=== PATIENT | female | born 1930 | race Caucasian/White ===

== ENCOUNTER 2017-10-23 17:06 | Emergency (ER) | payer MEDICARE ==
--- OUTSIDE RECORDS SUMMARY | 2017-10-23 17:14 | XMS REPORT ---
:1930 External Reference #:[id number] Author Organization [facility] Address [address] [place] [address] Phone [phone] Care Team Providers Name Role Phone Yolis Kirby M.D. Care Team Information Final Inspector Motorcyles Unavailable Yolis Kirby M.D. Primary Care Physician Unavailable Payers Type Date Identification Numbers Payment Provider Subscriber Medicare Primary Policy Number: [id number] Medicare [place] PayID: [id number] [address] [place] [address] Medigap Part B Policy Number: [id number] [facility] Care Options [place] PayID: [id number] [address] [place] [address] Problems Date Description Provider Status Onset: 08/20/2011 Pure hypercholesterolemia Douglas Reynolds M.D. Active Onset: 08/20/2011 Multiple joint pain Douglas Reynolds M.D. Active Onset: 09/10/2011 Urinary incontinence Douglas Reynolds M.D. Active Onset: 11/04/2012 Arthralgia of the lower leg Douglas Reynolds M.D. Active Onset: 10/04/2015 Pain in left lower limb Douglas Reynolds M.D. Active Onset: 11/03/2015 Shoulder joint pain Douglas Reynolds M.D. Active Onset: 12/29/2015 Essential hypertension Yolis Kirby M.D. Active Onset: 10/02/2017 Anxiety state Yolis Kirby M.D. Active Onset: 03/02/2013 Senile dementia Douglas Reynolds M.D. Resolved Resolved: 12/29/2015 Onset: 05/24/2014 Tietze's disease Douglas Reynolds M.D. Resolved Resolved: 12/29/2015 Onset: 06/07/2014 Amnesia Douglas Reynolds M.D. Resolved Resolved: 12/29/2015 Onset: 06/07/2014 Functional encopresis Douglas Reynolds M.D. Resolved Resolved: 12/29/2015 Onset: 10/04/2015 Loss of appetite Douglas Reynolds M.D. Resolved Resolved: 12/29/2015 Onset: 11/29/2015 Weight decreased Douglas Reynolds M.D. Resolved Resolved: 12/29/2015 Family History Date Family Member(s) Problem(s) Comments Father Alzheimer's Disease Father Heart Disease Mother Asthma Social History Type Date Description Comments Living Situation [facility] alone Cigarette Use Nonsmoker ETOH Use Rare Smoking Nonsmoker Exercise Type/Frequency Current Exercises sporadically Allergies, Adverse Reactions, Alerts Date Description Reaction Status Severity Comments 11/05/1997 Sulfa Drugs active 05/04/2001 Tetracycline active Medications Medication Date Status Form Strength Qnty SIG Indications Ordering Provider Vesicare 06/26/ Active Tablets 10mg 30tab 1 by mouth Misty Genny 2017 s every day ALISSON Bingham Buspirone HCL 06/26/ Active Tablets 15mg 30tab take 1 F41.9 2017 s tablet at Braddock, bedtime M.D. Ibuprofen 05/29/ Active Tablets 400mg 90tab 1 tab by M54.5 Yolis 2017 s mouth three Braddock, times a day M.D. as needed, take with food Aspir-81 12/06/ Active Tablets DR 81mg 1 po qd [place] [address] [facility] Allergy Eye / Active Solution 0.025% 2 qtts in Unknown Drops 0000 each eye once a day as needed Vitamin C / Active Tablets 1000mg 1 by mouth Unknown 0000 every day Turmeric / Active Capsules 500-3mg 1 by mouth Unknown Curcumin 0000 daily Complex/Black Pepper Extract Clobetasol / Active Ointment 0.05% apply 1 Unknown Propionate 0000 application topically to affected area 2 times per day as needed Olopatadine 00/ Active Solution 0.1% 1 drop each Unknown HCL 0000 eye twice a day as needed Claritin-D 12 00/ Active Tablets ER 5-120mg 1 tablet in Unknown Hour 0000 12HR Am as needed Oxybutynin 05/29/ Hx Tablets 5mg 30tab 1 tab by Yolis Chloride 2018 - s mouth every Braddock, 06/26/ day M.D. 2018 Trigger 05/29/ Hx right 4th M65.341 Yolis Finger Brace 2018 - finger Kofi, 10/02/ overnight M.D. 2018 M15.0 Buspirone HCL 09/24/2016 - Hx Tablets 5mg 30tabs 1 tab by Henry9 Yolis 06/26/2017 mouth at Christiano Kirby bedtime as needed Escitalopram 07/23/2016 - Hx Tablets 5mg 30tabs take one F41.9 Yolis Oxalate 08/27/2016 tablet by Christiano Kirby mouth at bedtime Furosemide 12/29/2015 - Hx Tablets 40mg 60tabs 2 tab by M25.442 Yolis 09/23/2016 mouth every Christiano Kirby morning as needed Physical Therapy 11/29/2015 - Hx treatment Douglas Torrez 12/29/2015 and bogdan Reynolds M.D. of shoulders Hydrocodone 11/03/2015 - Hx Tablets 5-300 60tabs take 1 Douglas Torrez Bitartrate/Aceta 12/29/2015 mg tablet PO Rodolfo minophen Qhour 6 M.D. Hour Meloxicam 11/03/2015 - Hx Tablets 15mg 30tabs 1 by mouth Douglas Torrez 07/23/2016 every day Christiano Reynolds Meloxicam 10/23/2015 - Hx Tablets 7.5mg 30tabs 2 by mouth Douglas Torrez 11/03/2015 every day Christiano Reynolds Cane Quad 10/23/2015 - Hx use daily Douglas Torrez 12/29/2015 for ashwin Reynolds M.D. Medrol 10/04/2015 - Hx TBPK 4mg 1units use as Douglas Torrez 10/23/2015 directed Christiano Reynolds Physical Therapy 10/04/2015 - Hx treatment Douglas Torrez 12/29/2015 and bogdan Reynolds M.D. leg pain Clarithromycin 02/24/2015 - Hx Tablets 250mg 14tabs 1 by mouth R05 Merry 04/12/2015 twice a day PALMA Ni Compression 01/04/2015 - Hx 14mm use as R60.0 Yolis Stockings 02/24/2015 HG directed; Christiano Kirby wear during day; can take off at night Furosemide 12/29/2014 - Hx Tablets 40mg 60tabs 2 tab by R60.0 Douglas Torrez 12/29/2015 mouth every Breiman, morning as M.DJeff needed Physical Therapy 10/03/2014 - Hx evaluate and 719.41 Merari 10/13/2014 treat right ALISSON Shoemaker shoulder pain after a fall. Possible rotator cuff injury Meloxicam 10/03/2014 - Hx Tablets 7.5mg 60tabs 1 by mouth 719.41 Merari 10/13/2014 twice a day ALISSON Shoemaker Vesicare 02/02/2014 - Hx Tablets 5mg 30tabs take 2 788.63 Merry 10/03/2014 tablet by PALMA Ni mouth daily for overactive bladder Physical Therapy 02/02/2014 - Hx please 788.63 Merry 10/03/2014 eval/treat PALMA Ni urge incontinence , nocturia, failure to fully void restore [phone] Meclizine HCL 06/23/2013 - Hx Tablets 12.5m 15tabs 1 PO tid Douglas Torrez 04/12/2015 shanice Reynolds M.D. Vesicare 09/10/2011 - Hx Tablets 10mg 30tabs Take One Douglas Torrez 02/24/2015 Tablet By Rodolfo, Mouth Every M.D. Day Benzonatate 03/15/2011 - Hx Capsules 100mg 20caps 1-2 po tid 465.8 Pema 08/20/2011 prn for Peg, cough Afnp-C Robitussin A-C 03/15/2011 - Hx 4Oz 1-2 tsp po 465.8 Pema 08/20/2011 q4h prn Peg, cough Afnp-C Prednisone 11/27/2009 - Hx Tablets 10mg 10tabs use as Kary 03/15/2011 directed to PALMA Bhatia complete taper Prednisone 11/23/2009 - Hx Tablets 10mg 36tabs 4 tabs po qd 692.6 Kary 03/15/2011 x 3d; 3 tabs PALMA Bhatia po x 3d, 2tabs x 3d then 1 tab qd x 2 Zyrtec 11/23/2009 - Hx Tablets 10mg 30tabs 1 po qd 692.6 Kary 08/20/2011 PALMA Bhatia Multivitamins 12/06/2008 - Hx Tablets 30tabs 1 po qd Family 08/20/2011 [facility] Vitamin B 12/06/2008 - Hx Tablets 1 po qd Family Complex 12/29/2015 [facility] Vitamin C 12/06/2008 - Hx Tablets 1000m 0tabs 1 po qd Family 02/24/2015 g [facility] Vitamin E 12/06/2008 - Hx Capsules 400Un 1 po qd [facility] 12/29/2015 it [facility] Calcium Citrate 12/06/2008 - Hx Tablets 2 po qd Family + 08/20/2011 [facility] Magnesium 12/06/2008 - Hx Tablets 150mg 2 po qd Family 08/20/2011 [facility] Claritin-D 24 12/06/2008 - Hx Tablets ER 10-24 5tabs 1 po qd prn Family Hour 08/20/2011 24HR 0mg [facility] Echinacea 12/06/2008 - Hx Capsules 400mg prn [facility] 08/20/2011 [facility] Augmentin 07/05/2008 - Hx Tablets 500mg 16tabs 1 po bid Douglas Torrez 12/06/2008 with food x Rodolfo 8 days Christiano Loricet 12/23/2005 - Hx 5/500 30units Use 1 PO Douglas Torrez 07/05/2008 mg Q4HR Christiano Reynolds Antivert 12/20/2005 - Hx Tablets 12.5m 30tabs 1-2 po tid Douglas Torrez 07/05/2008 g nava Yeager M.D. 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 08/29/2003 days Christiano Saleh Thi Pearls 08/22/2003 - Hx 200mg 30units 1 PO tid Guillermo J. 09/05/2003 Christiano Saleh Robitussin ac 08/22/2003 - Hx 4Oz 1-2 TSP PO Guillermo J. 09/05/2003 Q4H prn Christiano Saleh Cough Hearing Test 02/15/2002 - Hx PT needs to Douglas Torrez 06/17/2003 have a jorge Reynolds M.D. evaluation d/t her hearing AIDS Ultravate Oint 02/02/2002 - Hx 0.05% 0units Douglas Torrez 06/17/2003 Christiano Reynolds Note 05/13/2001 - Hx PT Still Kary 02/02/2002 Cleared For PALMA Bhatia Surgery Amoxicillin 03/11/2000 - Hx 250mg 30units 1 PO tid Omar Bright 03/21/2000 Christiano Reece Amoxicillin 03/26/1999 - Hx 250mg 30units 1 PO tid Omar Bright 06/20/1999 Christiano Reece Amoxicillin 02/26/1999 - Hx 250mg 30units 1 PO tid Omar Bright 03/08/1999 Christiano Reece Claritin 11/05/1997 - Hx 10mg 30units 1 qd Harvinder F. 03/11/2000 Christiano Tabor Bactrim DS 10/26/1997 - Hx 20units 1 PO bid Enrico T. 11/05/1997 Christiano Arroyo Suprax 10/20/1997 - Hx 400mg 10units 1 PO qd Omar Bright 10/30/1997 Christiano Reece Amoxicillin 10/10/1997 - Hx 250mg 30units 1 PO tid Omar Bright 10/20/1997 Christiano Reece Entex Pse 10/10/1997 - Hx 30units 1 bid Omar Bright 10/25/1997 Christiano Reece Naproxen 01/03/1997 - Hx 375mg 50units 1 PO tid prn Omar Bright 03/11/2000 Tab Christiano Reece Sporanox 12/03/1996 - Hx 100mg 56units Take 2 Omar M. 06/20/1999 Tab Capsules bid Shanell, X 1 WK - Off M.DJeff X 3 Wksthen 2 Capsules bid X 1 WK Inholtra Premium - Hx 1 po qd Unknown Lubri-Joint 12/29/2015 Calcium Citrate - Hx 250mg 1 po qd Unknown 12/29/2015 Vitamin D 3 - Hx 150Iu 1 po qd Unknown 12/29/2015 Loratadine - Hx Tablets 10mg 30tabs 1 po qd prn Unknown 11/04/2012 Claritin 12 Hour - Hx Tablets ER 5mg 30tabs prn Unknown 02/24/2015 12HR Aspirin - Hx Tablets 325mg prn Unknown 08/26/2016 Halobetasol - Hx Ointment 0.05% 15units apply two Unknown Propionate 02/02/2014 times a day as needed Phyllis-Northwood - Hx Tablets prn Unknown 02/02/2014 Efferv Zinc - Hx Tablets 50mg 1 po qd Unknown 12/29/2015 Vesicare - Hx Tablets 10mg 90tabs 1 po qd Unknown 02/02/2014 Mupirocin - Hx Ointment 2% 30gm Unknown 02/02/2014 Hydroxyzine HCL - Hx Tablets 10mg 60tabs 2 po qhs Unknown 09/23/2016 Prednisone - Hx Tablets 10mg 1 po qod Unknown 04/12/2015 Triamcinolone - Hx Ointment 0.1% apply to the Unknown Acetonide 07/23/2016 affected area 2 to 3 times a day Vitamin C - Hx Tablets 500mg 1 po qd Unknown 12/29/2015 Loratadine - Hx Tablets 5mg 1 po qd prn Unknown 07/23/2016 Tramadol - Hx Tablets 37.5- 50tabs 1or 2 Merari Hydrochloride/Ac 12/29/2015 325mg tablest by ALISSON Shoemaker etaminophen mouth every 6 hours as needed for pain Clobetasol - Hx Cream prn Unknown Propionate 09/23/2016 Emollient Otezla - Hx Tablets 30mg 1 po bid Unknown 05/29/2017 Claritin-D 12 - Hx Tablets ER 5-120 one tablet Unknown Hour 05/29/2017 12HR mg by mouth every 12 hours as needed Premium - Hx daily Unknown Lubri-Joint 10/02/2017 Medications Administered in Office Medication Date Status Form Strength Qnty SIG Indications Ordering Provider H1N1 MDCR Administered Injection Douglas Lore vaccine any 010 Amyimandenver M.D. Immunizations CPT Code Status Date Vaccine Lot # [id number] Given 04/12/2015 Pneumococcal Conjugate Vacc-13 [id number] Given 02/11/2014 Split Influenza Medicare: Fluzone [id number] Given 04/18/2009 H1N1 Virus Vaccine [id number] Given 12/06/2008 Zostivax [id number] Given 07/05/2008 Tetanus And Diptheria Adult Preservative Free [id number] >[id number] 97878 Given 02/12/2007 DO Not Use Split Influenza Virus Vaccine 54540 Given 02/02/2002 Pneumococcal Immunization 87297 Given 02/02/2002 DO Not Use Split Influenza Virus Vaccine Vital Signs Date Vital Result Comment 10/02/2017 BP Systolic 118 mmHg BP Diastolic 78 mmHg Heart Rate 88 /min Body Temperature 97.5 F Height 62 inches 5'2" Weight 135.00 lb BMI (Body Mass Index) 24.7 kg/m2 06/26/2017 BP Systolic 120 mmHg BP Diastolic 70 mmHg Heart Rate 88 /min Body Temperature 98.4 F Respiratory Rate 16 /min Height 62 inches 5'2" Weight 136.00 lb BMI (Body Mass Index) 24.9 kg/m2 05/29/2017 BP Systolic 130 mmHg BP Diastolic 84 mmHg Heart Rate 88 /min Body Temperature 99.0 F Respiratory Rate 16 /min Height 62 inches 5'2" Weight 134.12 lb BMI (Body Mass Index) 24.5 kg/m2 11/21/2016 BP Systolic 182 mmHg BP Diastolic 90 mmHg BP Systolic Recheck 120 mmHg BP Diastolic Recheck 78 mmHg Heart Rate 92 /min Body Temperature 98.4 F Respiratory Rate 16 /min Height 61 inches 5'1" Weight 126.38 lb BMI (Body Mass Index) 23.9 kg/m2 09/24/2016 BP Systolic 120 mmHg BP Diastolic 80 mmHg Heart Rate 104 /min Body Temperature 97.2 F Height 61 inches 5'1" Weight 123.00 lb BMI (Body Mass Index) 23.2 kg/m2 08/27/2016 BP Systolic 128 mmHg BP Diastolic 82 mmHg Heart Rate 104 /min Body Temperature 98.8 F Height 61 inches 5'1" Weight 122.12 lb BMI (Body Mass Index) 23.1 kg/m2 07/23/2016 BP Systolic 140 mmHg BP Diastolic 80 mmHg Heart Rate 100 /min Body Temperature 98.2 F Respiratory Rate 16 /min Height 61 inches 5'1" Weight 125.00 lb BMI (Body Mass Index) 23.6 kg/m2 12/29/2015 BP Systolic 150 mmHg BP Diastolic 80 mmHg Heart Rate 80 /min Body Temperature 97.7 F Respiratory Rate 16 /min Height 61 inches 5'1" Weight 119.00 lb BMI (Body Mass Index) 22.5 kg/m2 12/22/2015 BP Systolic 134 mmHg BP Diastolic 72 mmHg Heart Rate 78 /min Body Temperature 98.0 F Respiratory Rate 20 /min Weight 121.00 lb 11/29/2015 BP Systolic 140 mmHg BP Diastolic 84 mmHg Heart Rate 78 /min Body Temperature 98.0 F Respiratory Rate 20 /min Weight 114.00 lb 11/03/2015 BP Systolic 130 mmHg BP Diastolic 70 mmHg Heart Rate 72 /min Body Temperature 98.0 F Respiratory Rate 20 /min 10/23/2015 BP Systolic 140 mmHg BP Diastolic 84 mmHg Heart Rate 72 /min Body Temperature 98.6 F Respiratory Rate 20 /min Height 62 inches 5'2" Weight 124.00 lb BMI (Body Mass Index) 22.7 kg/m2 10/04/2015 BP Systolic 120 mmHg BP Diastolic 74 mmHg Heart Rate 76 /min Body Temperature 98.0 F Respiratory Rate 20 /min Height 62 inches 5'2" Weight 126.00 lb BMI (Body Mass Index) 23.0 kg/m2 05/01/2015 BP Systolic 134 mmHg BP Diastolic 72 mmHg Heart Rate 88 /min Body Temperature 98.6 F Respiratory Rate 20 /min Height 62 inches 5'2" Weight 136.00 lb BMI (Body Mass Index) 24.9 kg/m2 04/12/2015 BP Systolic 136 mmHg BP Diastolic 70 mmHg Heart Rate 96 /min Body Temperature 98.8 F Respiratory Rate 16 /min Height 62 inches 5'2" Weight 139.50 lb BMI (Body Mass Index) 25.5 kg/m2 02/24/2015 BP Systolic 150 mmHg BP Diastolic 80 mmHg Heart Rate 88 /min Body Temperature 98.1 F Respiratory Rate 20 /min Height 62 inches 5'2" Weight 144.00 lb BMI (Body Mass Index) 26.3 kg/m2 01/11/2015 BP Systolic 120 mmHg BP Diastolic 60 mmHg Heart Rate 96 /min Body Temperature 98.5 F Respiratory Rate 18 /min Height 62 inches 5'2" Weight 148.50 lb BMI (Body Mass Index) 27.2 kg/m2 01/04/2015 BP Systolic 118 mmHg BP Diastolic 62 mmHg Heart Rate 96 /min Body Temperature 98.8 F Respiratory Rate 16 /min Height 62 inches 5'2" 12/29/2014 Body Temperature 99.7 F Height 62 inches 5'2" Weight 162.25 lb BMI (Body Mass Index) 29.7 kg/m2 10/14/2014 BP Systolic 120 mmHg BP Diastolic 70 mmHg Heart Rate 54 /min Body Temperature 98.7 F Respiratory Rate 16 /min Height 62 inches 5'2" Weight 158.25 lb BMI (Body Mass Index) 28.9 kg/m2 10/03/2014 BP Systolic 152 mmHg BP Diastolic 92 mmHg Heart Rate 80 /min Body Temperature 98.8 F Respiratory Rate 17 /min Height 62 inches 5'2" 09/30/2014 BP Systolic 130 mmHg BP Diastolic 78 mmHg Heart Rate 78 /min Body Temperature 97.9 F Respiratory Rate 20 /min Height 62 inches 5'2" Weight 158.00 lb BMI (Body Mass Index) 28.9 kg/m2 06/07/2014 BP Systolic 126 mmHg BP Diastolic 70 mmHg Heart Rate 72 /min Body Temperature 97.8 F Respiratory Rate 20 /min O2 % BldC Oximetry 94 % Height 62 inches 5'2" Weight 162.00 lb BMI (Body Mass Index) 29.6 kg/m2 05/24/2014 BP Systolic 112 mmHg BP Diastolic 80 mmHg Heart Rate 82 /min Body Temperature 98.0 F Respiratory Rate 20 /min Height 65.25 inches 5'5.25" Weight 162.00 lb BMI (Body Mass Index) 26.7 kg/m2 02/08/2014 BP Systolic 130 mmHg BP Diastolic 80 mmHg Heart Rate 82 /min Body Temperature 99.1 F Respiratory Rate 20 /min Height 65.25 inches 5'5.25" Weight 151.00 lb BMI (Body Mass Index) 24.9 kg/m2 02/02/2014 BP Systolic 148 mmHg BP Diastolic 80 mmHg Heart Rate 72 /min Body Temperature 97.8 F Respiratory Rate 16 /min Height 65.25 inches 5'5.25" Weight 151.12 lb BMI (Body Mass Index) 25.0 kg/m2 03/02/2013 BP Systolic 130 mmHg BP Diastolic 80 mmHg Heart Rate 80 /min Body Temperature 98.5 F Respiratory Rate 16 /min Height 65.25 inches 5'5.25" Weight 153.00 lb BMI (Body Mass Index) 25.3 kg/m2 11/04/2012 BP Systolic 140 mmHg BP Diastolic 90 mmHg Heart Rate 76 /min Body Temperature 98.7 F Respiratory Rate 18 /min Height 65 inches 5'5" Weight 154.00 lb BMI (Body Mass Index) 25.6 kg/m2 09/10/2011 BP Systolic 156 mmHg BP Diastolic 90 mmHg Heart Rate 80 /min Body Temperature 98.3 F Height 65 inches 5'5" Weight 158.00 lb BMI (Body Mass Index) 26.3 kg/m2 08/20/2011 BP Systolic 160 mmHg BP Diastolic 80 mmHg Heart Rate 80 /min Body Temperature 98.0 F Height 65 inches 5'5" Weight 156.00 lb BMI (Body Mass Index) 26.0 kg/m2 03/15/2011 BP Systolic 150 mmHg BP Diastolic 82 mmHg Heart Rate 78 /min Body Temperature 98.2 F Height 65 inches 5'5" Weight 159.00 lb BMI (Body Mass Index) 26.5 kg/m2 11/23/2009 Heart Rate 76 /min Body Temperature 98.2 F Respiratory Rate 16 /min Height 65 inches 5'5" Weight 161.00 lb BMI (Body Mass Index) 26.8 kg/m2 05/23/2009 BP Systolic 130 mmHg BP Diastolic 70 mmHg Heart Rate 84 /min Height 65 inches 5'5" Weight 164.00 lb BMI (Body Mass Index) 27.3 kg/m2 04/18/2009 BP Systolic 136 mmHg BP Diastolic 76 mmHg Heart Rate 84 /min Height 65 inches 5'5" Weight 160.00 lb BMI (Body Mass Index) 26.6 kg/m2 12/06/2008 BP Systolic 136 mmHg BP Diastolic 80 mmHg Heart Rate 80 /min Height 65 inches 5'5" Weight 156.00 lb BMI (Body Mass Index) 26.0 kg/m2 07/05/2008 BP Systolic 122 mmHg BP Diastolic 80 mmHg Heart Rate 80 /min Body Temperature 98.9 F Weight 155.00 lb 02/04/2006 BP Systolic 130 mmHg BP Diastolic 70 mmHg Heart Rate 90 /min Height 64.75 inches 5'4.75" Weight 156.00 lb BMI (Body Mass Index) 26.2 kg/m2 12/23/2005 BP Systolic 160 mmHg BP Diastolic 92 mmHg Heart Rate 68 /min Body Temperature 98.9 F Height 64.75 inches 5'4.75" Weight 160.00 lb BMI (Body Mass Index) 26.8 kg/m2 12/20/2005 BP Systolic 174 mmHg BP Diastolic 100 mmHg Heart Rate 68 /min Body Temperature 97.5 F Height 64.75 inches 5'4.75" Weight 159.00 lb BMI (Body Mass Index) 26.7 kg/m2 09/25/2004 BP Systolic 148 mmHg BP Diastolic 90 mmHg Heart Rate 80 /min Height 64.75 inches 5'4.75" Weight 157.00 lb BMI (Body Mass Index) 26.3 kg/m2 08/22/2003 BP Systolic 115 mmHg BP Diastolic 75 mmHg Body Temperature 103.0 F Height 65.5 inches 5'5.50" 06/17/2003 BP Systolic 162 mmHg BP Diastolic 90 mmHg Heart Rate 80 /min Body Temperature 97.4 F Height 65.5 inches 5'5.50" Weight 150.00 lb BMI (Body Mass Index) 24.6 kg/m2 02/02/2002 BP Systolic 136 mmHg BP Diastolic 80 mmHg Heart Rate 68 /min Body Temperature 97.9 F Height 65.5 inches 5'5.50" Weight 142.00 lb BMI (Body Mass Index) 23.6 kg/m2 10/15/2001 BP Systolic 144 mmHg BP Diastolic 80 mmHg Height 65.5 inches 5'5.50" Weight 146.00 lb BMI (Body Mass Index) 24.3 kg/m2 10/09/2001 BP Systolic 156 mmHg BP Diastolic 94 mmHg Height 65.5 inches 5'5.50" Weight 148.00 lb BMI (Body Mass Index) 24.6 kg/m2 05/04/2001 BP Systolic 134 mmHg BP Diastolic 60 mmHg Heart Rate 80 /min Body Temperature 97.9 F Height 65.5 inches 5'5.50" Weight 158.00 lb BMI (Body Mass Index) 26.3 kg/m2 01/09/2001 BP Systolic 150 mmHg BP Diastolic 90 mmHg Heart Rate 72 /min Weight 165.00 lb 03/11/2000 BP Systolic 152 mmHg BP Diastolic 98 mmHg Body Temperature 97.8 F Weight 166.00 lb 02/26/1999 Body Temperature 97.8 F Weight 162.00 lb 11/05/1997 BP Systolic 126 mmHg BP Diastolic 80 mmHg Weight 157.00 lb 10/10/1997 BP Systolic 128 mmHg Ra SM Cuff BP Diastolic 70 mmHg Ra SM Cuff Weight 164.00 lb 01/03/1997 Body Temperature 97.5 F 12/03/1996 BP Systolic 152 mmHg BP Diastolic 82 mmHg Body Temperature 96.9 F Weight 166.00 lb Results Test Date Test Result H/L Range Note Comprehensive Metabolic Prof 06/26/2017 Sodium 143 mEq/L 134-149 Potassium 4.0 mEq/L 3.6-5.5 Chloride 106 mEq/L 94-112 Carbon Dioxide 28 mEq/L 21-32 Glucose 98 mg/dL 70-105 BUN 24 mg/dL 6-26 Creatinine 0.7 mg/dL 0.6-1.4 BUN/Creat Ratio 34.3 CALC 8.0-36.0 Calcium 9.4 mg/dL 8.6-10.2 Total Protein 7.1 g/dL 6.4-8.3 Albumin 4.4 g/dL 3.8-5.5 Globulin 2.7 g/dL 2.0-4.8 A/G Ratio 1.6 CALC 0.6-2.3 Alk. Phosphatase 53 U/L 30-110 Alt (SGPT) 15 U/L 7-35 Ast (Sgot) 18 U/L 5-34 Total Bilirubin 1.0 mg/dL 0.2-1.3 GFR Non- >60 ml/min/1.73m^ >=60 GFR >60 ml/min/1.73m^ >=60 Lipid Profile 06/26/2017 Cholesterol 204 mg/dL High 120-200 Triglycerides 73 mg/dL 30-200 HDL Cholesterol 85 mg/dL 30-85 LDL (Calculated) 104 CALC 0-129 VLDL Cholesterol 15 mg/dL 0-50 HDL Risk Factor 2.4 CALC 0.0-4.4 Laboratory test finding 06/26/2017 Free T4 1.09 ng/dL 0.75-1.54 TSH 2.10 mIU/L 0.50-6.00 CBC Electronic Fma 06/26/2017 WBC 5.0 x10^3/UL 4.0-10.0 RBC 4.22 x10^6/UL 3.93-6.00 HGB 12.7 g/dL 12.0-17.0 HCT 37 % 35-50 MCV 88.4 fL 80.0-95.0 MCH 30.1 pg 25.6-32.2 MCHC 34.0 g/dL 32.2-36.0 RDW-CV 13.9 % 11.6-14.4 PLT 183 x10^3/UL 163-400 MPV 11.6 fL 9.4-12.4 Amy# 3.30 x10^3/UL 1.56-6.13 Lymph# 1.01 x10^3/UL Low 1.18-3.74 Hutchinson# 0.52 x10^3/UL 0.24-0.82 Eos # 0.1 x10^3/UL 0.0-0.5 Baso # 0.04 x10^3/UL 0.01-0.08 Amy% 66.5 % 34.0-70.0 Lymph % 20.4 % 20.0-52.0 Hutchinson% 10.5 % 5.0-12.0 Eos% 1.6 % 0.7-7.0 Baso% 0.8 % 0.1-1.2 Complete Blood Count 09/17/2016 WBC 5.2 x10^3/UL 3.6-9.6 RBC 4.28 x10^6/UL 3.90-5.70 HGB 12.7 g/dL 12.1-17.2 HCT 38 % 36-50 MCV 88.0 fL 82.2-97.4 MCH 29.6 pg 27.6-33.3 MCHC 33.7 g/dL 33.0-35.5 RDW 13.9 % High 11.6-13.7 PLT 174 x10^3/UL 150-400 MPV 8.7 fL 7.4-10.4 Gran # 3.1 x10^3/UL 1.5-7.2 Lymph# 1.7 x10^3/UL 0.7-4.9 Hutchinson# 0.4 x10^3/UL 0.1-0.9 Gran % 57.8 % 42.2-75.2 Lymph % 34.5 % 20.5-51.1 Hutchinson% 7.7 % 1.7-9.3 Comprehensive Metabolic Prof 09/17/2016 Sodium 139 mEq/L 134-149 Potassium 4.0 mEq/L 3.6-5.5 Chloride 99 mEq/L 94-112 Carbon Dioxide 24 mEq/L 21-32 Glucose 100 mg/dL 70-105 BUN 32 mg/dL High 6-26 1 Creatinine 0.7 mg/dL 0.6-1.4 BUN/Creat Ratio 45.7 CALC High 8.0-36.0 Calcium 9.3 mg/dL 8.6-10.2 Total Protein 6.7 g/dL 6.4-8.3 Albumin 4.0 g/dL 3.8-5.5 Globulin 2.7 g/dL 2.0-4.8 A/G Ratio 1.5 CALC 0.6-2.3 Alk. Phosphatase 59 U/L 30-110 Alt (SGPT) 15 U/L 7-35 Ast (Sgot) 18 U/L 5-34 Total Bilirubin 0.5 mg/dL 0.2-1.3 GFR Non- >60 ml/min/1.73m^ >=60 GFR >60 ml/min/1.73m^ >=60 Lipid Profile 09/17/2016 Cholesterol 173 mg/dL 120-200 Triglycerides 91 mg/dL 30-200 HDL Cholesterol 80 mg/dL 30-85 LDL (Calculated) 75 CALC 0-129 VLDL Cholesterol 18 mg/dL 0-50 HDL Risk Factor 2.2 CALC 0.0-4.4 Laboratory test finding 09/17/2016 TSH 3.33 mIU/L 0.50-6.00 Laboratory test finding 11/29/2015 BUN 28 mg/dL High 6-26 2 Creatinine 0.7 mg/dL 0.6-1.4 Protein Electrophoresis 11/03/2015 Protein, Total, Serum 6.6 g/dL 6.0- 8.5 3 W/Interp Albumin 3.6 g/dL 2.9-4.4 3 Cjixr-7-Uahhkmnq 0.3 g/dL 0.0-0.4 3 Vxrxn-9-Kksczxhw 0.7 g/dL 0.4-1.0 3 Beta Globulin 1.0 g/dL 0.7-1.3 3 Gamma Globulin 0.9 g/dL 0.4-1.8 3 M-Campbell Not Observed g/dL Not Observed 3 Globulin, Total 3.0 g/dL 2.2-3.9 3 A/G Ratio 1.2 0.7-1.7 3 Please note: See Comment: 3, 4 P E Interpretation, S See Comment: 3, 5 Laboratory test finding 11/03/2015 PDF [id number] SEE IMAGE 3 Comprehensive Metabolic Prof 10/23/2015 Sodium 142 mEq/L 134-149 Potassium 4.8 mEq/L 3.6-5.5 Chloride 104 mEq/L 94-112 Carbon Dioxide 27 mEq/L 21-32 Glucose 95 mg/dL 70-105 BUN 25 mg/dL 6-26 Creatinine 0.7 mg/dL 0.6-1.4 BUN/Creat Ratio 35.7 CALC 8.0-36.0 Calcium 9.7 mg/dL 8.6-10.2 Total Protein 7.0 g/dL 6.4-8.3 Albumin 4.0 g/dL 3.8-5.5 Globulin 3.0 g/dL 2.0-4.8 A/G Ratio 1.3 CALC 0.6-2.3 Alk. Phosphatase 76 U/L 30-110 Alt (SGPT) 18 U/L 7-35 Ast (Sgot) 23 U/L 5-34 Total Bilirubin 0.8 mg/dL 0.2-1.3 GFR Non- >60 ml/min/1.73m^ >=60 GFR >60 ml/min/1.73m^ >=60 Laboratory test finding 10/23/2015 TSH 0.71 mIU/L 0.50-6.00 Free T4 1.22 ng/dL 0.75-1.54 Laboratory test finding 10/23/2015 C-Reactive Protein, Quant 2.9 mg/L 0.0 -4.9 3 CBC Electronic ([facility]ma) 10/23/2015 WBC 6.1 3.6-9.6 RBC 4.56 3.90-5.70 Hemoglobin ([facility]ma/CMC/CTX) 13.7 g/dL 12.1 - 17.2 Hematocrit (Fma/CMC/CTX) 42.2 % 36.1 - 50.3 Platelets 211 10^3/ul 150-400 Lymph% 18.9 % 17.0-48.0 Mixed% 5.5 Neutrophils % 75.6 Mean Corpuscular Vol 92 82.2-97.4 Mean Corpuscular Hemoglobin 30.0 27.6-33.3 Mean Corpuscular Hemo Concen 32.5 32.0-36.0 RDW 14.2 High 11.6-13.7 Mean Platelet Volume 7.8 5.5-11.0 Laboratory test finding 10/23/2015 Sedimentation Rate 18mm Lipid Profile 09/26/2015 Cholesterol 175 mg/dL 120-200 Triglycerides 97 mg/dL 30-200 HDL Cholesterol 72 mg/dL 30-85 LDL (Calculated) 84 CALC 0-129 VLDL Cholesterol 19 mg/dL 0-50 HDL Risk Factor 2.4 CALC 0.0-4.4 Complete Blood Count 09/26/2015 WBC 6.0 x10^3/UL 3.6-9.6 RBC 4.34 x10^6/UL 3.90-5.70 HGB 13.2 g/dL 12.1-17.2 HCT 40 % 36-50 MCV 92.0 fL 82.2-97.4 MCH 30.4 pg 27.6-33.3 MCHC 33.0 g/dL 33.0-35.5 RDW 13.6 % 11.6-13.7 PLT 211 x10^3/UL 150-400 MPV 8.0 fL 7.4-10.4 Gran # 4.7 x10^3/UL 1.5-7.2 Lymph# 1.0 x10^3/UL 0.7-4.9 [place]# 0.3 x10^3/UL 0.1-0.9 Gran % 76.4 % High 42.2-75.2 Lymph % 18.3 % Low 20.5-51.1 [place]% 5.3 % 1.7-9.3 Laboratory test finding 09/26/2015 Anti-dsDNA Antibodies 1 IU/mL 0-9 3, 6 Laboratory test finding 09/26/2015 Alt (SGPT) 19 U/L 7-35 Laboratory test finding 05/01/2015 Vitamin D25 46 30-100 Complete Blood Count 05/01/2015 WBC 4.9 x10^3/UL 3.6-9.6 RBC 4.27 x10^6/UL 3.90-5.70 HGB 13.1 g/dL 12.1-17.2 HCT 39 % 36-50 MCV 91.0 fL 82.2-97.4 MCH 30.6 pg 27.6-33.3 MCHC 33.5 g/dL 33.0-35.5 RDW 13.5 % 11.6-13.7 PLT 178 x10^3/UL 150-400 MPV 8.7 fL 7.4-10.4 Gran # 3.4 x10^3/UL 1.5-7.2 Lymph# 1.3 x10^3/UL 0.7-4.9 [place]inson# 0.2 x10^3/UL 0.1-0.9 Gran % 67.9 % 42.2-75.2 Lymph % 26.5 % 20.5-51.1 [place]% 5.6 % 1.7-9.3 Comprehensive Metabolic Prof 05/01/2015 Sodium 138 mEq/L 134-149 Potassium 4.5 mEq/L 3.6-5.5 Chloride 101 mEq/L 94-112 Carbon Dioxide 25 mEq/L 21-32 Glucose 76 mg/dL 70-105 BUN 22 mg/dL 6-26 Creatinine 0.7 mg/dL 0.6-1.4 BUN/Creat Ratio 31.4 CALC 8.0-36.0 Calcium 9.8 mg/dL 8.6-10.2 Total Protein 6.6 g/dL 6.4-8.3 Albumin 4.2 g/dL 3.8-5.5 Globulin 2.4 g/dL 2.0-4.8 A/G Ratio 1.8 CALC 0.6-2.3 Alk. Phosphatase 41 U/L 30-110 Alt (SGPT) 24 U/L 7-35 Ast (Sgot) 25 U/L 5-34 Total Bilirubin 0.5 mg/dL 0.2-1.3 GFR Non- >60 ml/min/1.73m^ >=60 GFR >60 ml/min/1.73m^ >=60 Lipid Profile 12/30/2014 Cholesterol 153 mg/dL 120-200 Triglycerides 84 mg/dL 30-200 HDL Cholesterol 62 mg/dL 30-85 LDL (Calculated) 74 CALC 0-129 VLDL Cholesterol 17 mg/dL 0-50 HDL Risk Factor 2.5 CALC 0.0-4.4 Laboratory test finding 12/30/2014 TSH 1.76 mIU/L 0.50-6.00 Free T4 1.07 ng/dL 0.75-1.54 Complete Blood Count 12/30/2014 WBC 5.3 x10^3/UL 3.6-9.6 RBC 4.20 x10^6/UL 3.90-5.70 HGB 12.8 g/dL 12.1-17.2 HCT 39 % 36-50 MCV 92.0 fL 82.2-97.4 MCH 30.6 pg 27.6-33.3 MCHC 33.4 g/dL 33.0-35.5 RDW 13.7 % 11.6-13.7 PLT 185 x10^3/UL 150-400 MPV 8.5 fL 7.4-10.4 Gran # 3.8 x10^3/UL 1.5-7.2 Lymph# 1.2 x10^3/UL 0.7-4.9 Hutchinson# 0.3 x10^3/UL 0.1-0.9 Gran % 69.8 % 42.2-75.2 Lymph % 23.1 % 20.5-51.1 Hutchinson% 7.1 % 1.7-9.3 Ua - Micro ([facility]ma) 12/30/2014 Appearance clear Color yellow Glucose, Urine (Fma/CMC/CTX) - Bilirubin - Ketones trace SP Grav 1.015 Blood - PH 6.0 Protein - Urobil 0.2 Nitrite - Leukocytes (Fma/CMC/Centrex) trace Hyaline - /Lpf Granular - /Lpf WBC ([facility]ma,Centrex) 3-4 RBC - Mucus (Fma/CBC/Centrex) - /Lpf Epith occ /Lpf Bacteria trace /Hpf Amorphous (Fma/CMC/Centrex) - /Lpf Crystals, Fluid (Fma/CMC/CTX) - Z#Comments - Laboratory test finding 12/30/2014 Brain Natural Peptide 84.6 pg/mL <100 Comprehensive Metabolic Prof 12/30/2014 Sodium 136 mEq/L 134-149 Potassium 3.8 mEq/L 3.6-5.5 Chloride 100 mEq/L 94-112 Carbon Dioxide 28 mEq/L 21-32 Glucose 96 mg/dL 70-105 BUN 24 mg/dL 6-26 Creatinine 0.7 mg/dL 0.6-1.4 BUN/Creat Ratio 34.3 CALC 8.0-36.0 Calcium 9.4 mg/dL 8.6-10.2 Total Protein 5.8 g/dL Low 6.4-8.3 7 Albumin 3.8 g/dL 3.8-5.5 Globulin 2.0 g/dL 2.0-4.8 A/G Ratio 1.9 CALC 0.6-2.3 Alk. Phosphatase 33 U/L 30-110 Alt (SGPT) 25 U/L 7-35 Ast (Sgot) 27 U/L 5-34 Total Bilirubin 1.2 mg/dL 0.2-1.3 GFR Non- >60 ml/min/1.73m^ >=60 GFR >60 ml/min/1.73m^ >=60 Comprehensive Metabolic Prof 02/02/2014 Sodium 137 mEq/L 134-149 Potassium 4.4 mEq/L 3.6-5.5 Chloride 100 mEq/L 94-112 Carbon Dioxide 28 mEq/L 21-32 Glucose 84 mg/dL 70-105 BUN 24 mg/dL 6-26 Creatinine 0.7 mg/dL 0.6-1.4 BUN/Creat Ratio 34.3 CALC 8.0-36.0 Calcium 9.7 mg/dL 8.6-10.2 Total Protein 7.1 g/dL 6.4-8.3 Albumin 4.2 g/dL 3.8-5.5 Globulin 2.9 g/dL 2.0-4.8 A/G Ratio 1.4 CALC 0.6-2.3 Alk. Phosphatase 39 U/L 30-110 Alt (SGPT) 26 U/L 7-35 Ast (Sgot) 20 U/L 5-34 Total Bilirubin 0.8 mg/dL 0.2-1.3 Laboratory test finding 02/02/2014 TSH 2.76 mIU/L 0.50-6.00 Lipid Profile 02/02/2014 Cholesterol 247 mg/dL High 120-200 Triglycerides 107 mg/dL 30-200 HDL Cholesterol 109 mg/dL High 30-85 8 LDL (Calculated) 117 CALC 0-129 VLDL Cholesterol 21 mg/dL 0-50 HDL Risk Factor 2.3 CALC 0.0-4.4 Ua - Micro ([facility]) 02/02/2014 Appearance CLEAR Color YELLOW Glucose, Urine (a/CMC/CTX) NEG Bilirubin NEG Ketones NEG SP Grav 1.010 Blood NEG PH 7.0 Protein NEG Urobil 0.2 Nitrite NEG Leukocytes (a/CMC/Centrex) TRACE WBC ([facility]rex) 1-3 Epith OCC /Lpf Bacteria TRACE /Hpf CBC Electronic ([facility]) 03/02/2013 WBC 5.0 3.6-9.6 RBC 4.90 3.90-5.70 Hemoglobin (a/CMC/CTX) 14.8 g/dL 12.1 - 17.2 Hematocrit (a/CMC/CTX) 45.0 % 36.1 - 50.3 Platelets 187 10^3/ul 150-400 Lymph% 21.8 20.5-51.1 Mixed% 4.8 Neutrophils % 73.4 Mean Corpuscular Vol 92 82.2-97.4 Mean Corpuscular Hemoglobin 30.3 27.6-33.3 Mean Corpuscular Hemo Concen 33.0 32.0-36.0 RDW 12.4 11.6-13.7 Mean Platelet Volume 7.8 6.5-11.0 Ua - Non Micro ([facility]) 03/02/2013 Appearance yellow Color clear Glucose neg Bilirubin neg Ketones neg SP Grav 1.020 Blood neg PH 7.0 Protein neg Urobil 0.2 Nitrite neg Leukocytes ([facility]/Centrex) neg Lipid Profile 03/02/2013 Cholesterol 236 mg/dL High 120-200 HDL 71 mg/dL 30-85 Triglycerides 83 mg/dL 30-200 HDL Risk Factor 3.3 CALC 0.0-4.4 LDL (Calculated) 148 CALC High 0-129 VLDL (Calculated) 17 mg/dL 0-50 Comprehensive Metabolic Prof 03/02/2013 Albumin 4.8 g/dL 3.8-5.5 Alk. Phos. 53 U/L 30-110 Alt (SGPT) 19 U/L 7-35 Ast (Sgot) 25 U/L 5-34 BUN 23 mg/dL 6-26 Calcium 9.2 mg/dL 8.6-10.2 Chloride 99 mEq/L 94-112 Creatinine 0.7 mg/dL 0.6-1.4 Carbon Dioxide 26 mEq/L 21-32 Glucose 92 mg/dL 70-105 Sodium 136 mEq/L 134-149 Total Bilirubin 1.0 mg/dL 0.2-1.3 Total Protein 7.2 g/dL 6.3-8.1 Potassium 3.7 mEq/L 3.6-5.5 Globulin 2.4 g/dL 2.0-4.8 A/G Ratio 2.0 Calc 0.6-2.3 BUN/Creat Ratio 32.9 Calc 8.0-36.0 Laboratory test finding 03/02/2013 TSH 2.19 mIU/L 0.50-6.00 B12 433 pg/mL 230-1050 Free T4 1.15 ng/dL 0.75-1.54 CBC No Diff 07/20/2012 White Blood Count 6.0 10^3/uL 4.8-10.8 Red Blood Count 4.50 10^6/uL 4.0-5.4 Hemoglobin 14.0 g/dL 12.0-16.0 Hematocrit 41 % 35-47 Mean Corpuscular Volume 91 fL 80-97 Mean Corpuscular Hemoglobin 31 pg 27-31 Mean Corpuscular HGB Conc 34 g/dL 31-36 Red Cell Distribution Width 14 % 10.5-15 Platelet Count 149 10^3/uL Low 150-450 Mean Platelet Volume 10 um3 7.4-10.4 Laboratory test 07/20/2012 Erythrocyte Sed Rate 18 mm/Hr 0-40 finding Laboratory test 07/20/2012 Antistreptolysin O Titer Negative IU/mL <200 Iu/mL 9 finding Urinalysis 07/20/2012 Urine Color Yellow Urine Appearance Clear Urine Specific [place] 1.017 1.010-1.030 Urine Esterase 2+ Negative Urine Nitrate Negative Negative Urine Urobilinogen Negative E.U./dL Negative Urine Protein Negative mg/dL Negative Urine pH 6.5 5-9 Urine Blood Negative Negative Urine Ketones Negative mg/dL Negative Urine Bilirubin Negative Negative Urine Glucose Negative mg/dL Negative Urine Microscopic 07/20/2012 Urine WBC 1+ (<10 /hpf) None Seen Urine RBC None Seen None Seen Urine Culture And Sensitivities 07/20/2012 Urine Culture (SEE NOTE) 10 Comprehensive Metabolic Prof 08/20/2011 Albumin 4.5 g/dL 3.8-5.5 Alk. Phos. 57 U/L 30-110 Alt (SGPT) 22 U/L 7-35 Ast (Sgot) 24 U/L 5-34 BUN 22 mg/dL 6-26 Calcium 9.3 mg/dL 8.6-10.2 Chloride 95 mEq/L 94-112 Creatinine 0.6 mg/dL 0.6-1.4 Carbon Dioxide 27 mEq/L 21-32 Glucose 104 mg/dL 70-105 Sodium 136 mEq/L 134-149 Total Bilirubin 0.8 mg/dL 0.2-1.3 Total Protein 7.0 g/dL 6.3-8.1 Potassium 3.8 mEq/L 3.6-5.5 Globulin 2.5 g/dL 2.0-4.8 A/G Ratio 1.8 Calc 0.6-2.2 BUN/Creat Ratio 35.8 Calc 8.0-36.0 Lipid Profile 08/20/2011 Cholesterol 210 mg/dL High 120-200 HDL 80 mg/dL 30-85 Triglycerides 96 mg/dL 30-200 HDL Risk Factor 2.6 CALC 0.0-4.0 LDL (Calculated) 111 CALC 0-129 VLDL (Calculated) 19 mg/dL 0-50 Ua - Non Micro (a) 08/20/2011 Appearance CLEAR Color YELLOW Glucose, Urine (Fma/CMC/CTX) NEG Bilirubin NEG Ketones NEG SP Grav 1.015 Blood NEG PH 7.0 Protein NEG Urobil 0.2 Nitrite NEG Leukocytes (a/CMC/Centrex) NEG CBC Electronic ([facility]) 08/20/2011 WBC 5.0 3.6-9.6 RBC 4.91 3.90-5.70 Hemoglobin (Fma/CMC/CTX) 14.4 g/dL 12.1 - 17.2 Hematocrit (Fma/CMC/CTX) 46.3 % 36.1 - 50.3 Platelets 257 10^3/ul 150-400 Lymph% 23.1 20.5-51.1 Mixed% 5.0 Neutrophils % 71.9 Mean Corpuscular Vol 94 82.2-97.4 Mean Corpuscular Hemoglobin 29.3 27.6-33.3 Mean Corpuscular Hemo Concen 31.1 Low 32.0-36.0 RDW 13.7 11.6-13.7 Mean Platelet Volume 7.4 6.5-11.0 Laboratory test finding 03/15/2011 Quickstrep NEG Negative Throat - Beta Strep Fma NEG @ 48 HRS Ua - Micro ([facility]) 12/06/2008 Appearance clear Color yellow Glucose neg Bilirubin neg Ketones neg SP Grav 1.015 Blood neg PH 6.0 Protein neg Urobil 0.2 Nitrite neg Leukocytes (Fma/CMC/Centrex) trace Hyaline - /Lpf Granular - /Lpf WBC ([facility]ma,Centrex) 2-3 RBC 1-2 Mucus - /Lpf Epith occass /Lpf Bacteria rare /Hpf Amorphous - /Lpf Crystals, Fluid (Fma/CMC/CTX) - Z#Comments - Complete Blood Count 12/06/2008 WBC 4.1 x10^3/uL 3.6-9.6 11 Gran# 2.6 x10^3/uL 1.5-7.2 11 Gran% 63.7 % 42.2-75.2 11 HCT 43 % 36-50 11 HGB 15.0 g/dL 12.1-17.2 11 Lymph# 1.1 x10^3/uL 0.7-4.9 11 Lymph% 27.3 % 20.5-51.1 11 MCH 30.4 pg 27.6-33.3 11 MCV 86.9 fL 82.2-97.4 11 MCHC 35.0 g/dL 33.0-35.5 11 Mo# 0.4 x10^3/uL 0.1-0.9 11 Mo% 9.0 % 1.7-9.3 11 MPV 9.1 fL 7.4-10.4 11 PLT 168 x10^3/uL 150-400 11 RBC 4.93 x10^6/uL 3.90-5.70 11 RDW 14.2 % High 11.6-13.7 11 Comprehensive Metabolic Prof 12/06/2008 Albumin 4.5 g/dL 3.8-5.5 11 Alk. Phos. 55 U/L 30-110 11 Alt (SGPT) 20 U/L 7-35 11 Ast (Sgot) 27 U/L 5-34 11 BUN 20 mg/dL 6-26 11 Calcium 9.4 mg/dL 8.6-10.2 11 Chloride 102 mEq/L 94-112 11 Creatinine 0.7 mg/dL 0.6-1.4 11 Carbon Dioxide 27 mEq/L 21-32 11 Glucose 90 mg/dL 70-105 11 Sodium 142 mEq/L 134-149 11 Total Bilirubin 0.9 mg/dL 0.2-1.3 11 Total Protein 7.6 g/dL 6.3-8.1 11 Potassium 4.2 mEq/L 3.6-5.5 11 Globulin 3.1 g/dL 2.0-4.8 11 A/G Ratio 1.4 Calc 0.6-2.2 11 BUN/Creat Ratio 29.7 Calc 8.0-36.0 11 Laboratory test finding 12/06/2008 TSH 1.69 mIU/L 0.50-6.00 11 Lipid Profile 12/06/2008 Cholesterol 219 mg/dL High 120-200 11 HDL 78 mg/dL 30-85 11 Triglycerides 99 mg/dL 30-200 11 HDL Risk Factor 2.8 CALC Low 4.2-7.0 11 LDL (Calculated) 122 CALC 0-129 11 VLDL (Calculated) 20 mg/dL 0-50 11 CBC ([place]) ([facility]) [facility] 12/20/2005 WBC 8.9 3.6-9.6 RBC 4.65 3.90-5.70 Hemoglobin (Fma/CMC/CTX) 14.1 g/dL 12.1 - 17.2 Hematocrit (Fma/CMC/CTX) 42 % 36.1 - 50.3 Mean Corpuscular Vol 89.8 82.2-97.4 Mean Corpuscular Hemaglobin 30.3 27.6-33.3 Mean Corpuscular Hemo Concen 33.8 33.0-36.0 RDW 14.2 High 11.6-13.7 Platelets 196 10^3/ul 150-400 Mean Platelet Volume 9.0 7.4-10.4 Auto-Diff - Gran# 7.6 High 1.5-7.2 Lymph# 1.1 0.7-4.9 Monocytes 0.2 10^3/uL 0.1 - 0.9 Gran% 85.0 High 42.2-75.2 Lymph% 12.4 Low 20.5-51.1 Monocytes 2.6 % 1.7-9.3 CBC Electronic ([facility]) 10/02/2004 WBC 4.4 3.6-9.6 Lymphocytes 43.6 % 20.5 - 51.1 Monocytes 9.1 % 1.7-9.3 Granulocytes 47.3 % 42.2 - 75.2 Lymphocytes 1.9 10^3/uL 0.7 - 4.9 Monocytes 0.4 10^3/uL 0.1 - 0.9 Granulocytes 2.1 10^3/uL 1.5 - 7.2 RBC 4.88 3.90-5.70 Hemoglobin (a/CMC/CTX) 14.3 g/dL 12.1 - 17.2 Hematocrit (a/CMC/CTX) 43.2 % 36.1 - 50.3 Mean Corpuscular Vol 88.5 82.2-97.4 Mean Corpuscular Hemaglobin 29.3 27.6-33.3 Mean Corpuscular Hemo Concen 33.1 33.0-36.0 RDW 13.5 11.6-13.7 Platelets 167. 10^3/ul 150-400 Mean Platelet Volume 8.7 7.4-10.4 Lipid Profile ([facility]) Female 10/02/2004 Cholesterol 211 mg/dL High 120-200 Triglyceride 88 mg/dL 30-200 HDL-Chol 81 mg/dL 30-85 LDL, Calculated (a/CMC) 112 CALC 0-129 LDL, Direct - mg/dL 0-130 VLDL 18 0-50 HDL Risk Factor ([facility]) 2.6 CALC Low 4.2-7.0 Comp Metabolic ([facility]) 10/02/2004 Glucose, Serum ([facility]/CTX) 98 mg/dL 70- 105 Female BUN ([facility]rex) 18 mg/dL 6-26 Creatinine, Serum 0.7 mg/dL 0.6-1.4 BUN/Creatinin Ratio 24.8 8.0-36 Sodium 142 134-149 Potassium 4.2 3.6-5.5 Chloride 100 mEq/L 94-112 Co2 29 21-32 Calcium (Fma/CMC/Centrex) 9.2 mg/dL 8.6-10.2 Total Protein 7.0 g/dL 6.3-8.1 Albumin (a/CMCC/Centrex) 4.2 3.8-5.5 Globulin 2.8 2.0-4.8 A/G Ratio (A/G Ratio) 1.5 0.6-2.2 Alkaline Phosphatase (F/C/CTX) 52 U/L 22-95 Alt (SGPT) (Fma/CMC/Centrex) 22 7-35 Ast (Sgot) (a/CMC/Centrex) 23 U/mL 5-34 Bilirubin, Total 0.6 mg/dL 0.2-1.3 Ua - Non Micro ([facility]) 09/25/2004 Appearance CLEAR Color LT YELLOW Glucose NEG Bilirubin NEG Ketones NEG SP Grav <=1.005 Blood NEG PH 6.5 Protein NEG Urobil 0.2 Nitrite NEG Leukocytes NEG Laboratory test finding 09/25/2004 Thinprep W/HPV LGSIL SEE IMAGE (IDRIS/ASCUS) Comp Metabolic ([facility]) 02/04/2002 Albumin 4.8 3.8-5.5 Alkaline Phosphatase 46 U/L 36-117 Bilirubin, Total 0.9 mg/dL 0.2-1.3 BUN 21 7-26 Calcium 9.6 mg/dL 8.6-10.0 Creatinine 0.7 mg/dL 0.6-1.4 Glucose 91 mg/dL 70 - 118 Ast Sgot 23 U/L 5-40 Alt (SGPT) 21 10-40 Total Protein 7.7 g/dL 6.4-8.3 Sodium 135 134-149 Potassium 4.0 3.6-5.5 Chloride 96 mEq/L 94-112 Co2 28 21-32 Globulin 2.9 2.0-4.8 Albumin / Globulin Ratio 1.7 0.6-2.2 BUN/Creatinin Ratio 30.0 8.0-36 Lipid Profile ([facility]) 02/04/2002 Cholesterol 225 mg/dL High 140-200 Triglyceride 56 mg/dL 30-150 VLDL 11 0-50 LDL-Calculated 111 0-160 HDL-Chol 103 High 35-85 CBC Electronic ([facility]) 02/04/2002 WBC 3.6 3.6-9.6 Lymphocytes 34.3 % 20.5 - 51.1 Monocytes 8.7 % 1.7-9.3 Granulocytes 57.0 % 42.2 - 75.2 Lymphocytes 1.2 10^3/uL 0.7 - 4.9 Monocytes 0.3 10^3/uL 0.1 - 0.9 Granulocytes 2.1 10^3/uL 1.5 - 7.2 RBC 4.70 3.90-5.70 Hemoglobin 14.3 g/dL 12.1 - 17.2 Hematocrit 42.5 % 36.1 - 50.3 Mean Corpuscular Vol 90.4 82.2-97.4 Mean Corpuscular Hemaglobin 30.5 27.6-33.3 Mean Corpuscular Hemo Concen 33.7 33.0-34.8 RDW 13.5 11.6-13.7 Platelets 159 10^3/ul 150-400 Mean Platelet Volume 9.2 7.4-10.4 Ua - Non Micro ([facility]) 10/15/2001 Appearance HAZY/YELLOW Glucose NEG Bilirubin CORA NEG Ketones TRACE SP Grav 1.010 Blood NEG PH 7.5 Protein SSA NEG Urobil 1.0 Nitrite NEG Leukocytes NEG 1 RESULTS VERIFIED BY REPEAT ANALYSIS 2 RESULTS VERIFIED BY REPEAT ANALYSIS 3 1 sst 4 Protein electrophoresis scan will follow via computer, mail, or financial services representative delivery. 5 The SPE pattern appears essentially unremarkable. Evidence of monoclonal protein is not apparent. 6 Negative <5 Equivocal 5 - 9 Positive >9 7 RESULTS VERIFIED BY REPEAT ANALYSIS 8 RESULTS VERIFIED BY REPEAT ANALYSIS 9 Normal values may vary with age, season and geographic area. Titers above upper limits may be indicative of infection, however only a two dilution rise in titer is required to be considered significant. ASO titer will usually rise above upper limits within one week of exposure, increase to peak levels at 3-5 weeks and return to baseline level at 6-12 twelve months. 10 RUN DATE: 07/22/12 [facility] LAB LIVE PAGE 1 RUN TIME: [id number] [place], [place] [address] Specimen Inquiry Name: NORBERTO PATRICIA : [address]: Arleth Chappell MD Acct: [id number] Unit: [id number] AGE: 81 Location: LAB Re07/20/12 SEX: F Status: REG REF SPEC: [id number] WARREN: 07/20/[address] [facility] [address]: Arleth Chappell MD REQ: [id number] RECD: 07/20/12 STATUS: GARY LEE DR: Douglas Reynolds MD _ SOURCE: URINE SPDESC: ORDERED: Urine Culture Procedure Result Verified Site Urine Culture Final 07/22/12- 920 ML No Growth Day 2 (<1,000 CFU/mL) END OF REPORT * ML=Testing performed at Main Lab DEPARTMENT OF PATHOLOGY, [address] [place] [address] Omar Enciso M.D. Director [facility] Permit #[id number] FASTING Procedures Date CPT Code Description Status 12/06/2008 43134 Electrocardiogram Complete Completed 02/04/2006 34294 Electrocardiogram Complete Completed 09/05/2004 Mammogram Completed 08/22/2003 79358 Pulse Oximetry Completed 02/09/2002 Bone Mineral Density Test Completed 03/20/1999 15512 Electrocardiogram Interpretation & Report Only Completed Encounters Type Date Location Provider CPT E/M Dx Office Visit 06/26/2017 11:20a Main Office Yolis Kirby M.D. 29541 I10 F41.9 N39.3 M65.341 Office Visit 11/21/2016 10:00a Main Office Yolis Kirby M.D. 47945 I10 F41.9 M54.5 Office Visit 09/24/2016 3:00p Main Office Yolis Kirby M.D. 49787 I10 F41.9 M54.5 R26.81 M15.0 Office Visit 08/27/2016 3:50p Main Office Yolis Kirby M.D. 01530 I10 F41.9 M54.5 R42 Office Visit 07/23/2016 3:40p Main Office Yolis Kirby M.D. 46649 I10 L40.0 F41.9 Office Visit 12/29/2015 10:30a [facility] Yolis Kirby M.D. 69962 Z00.00 I10 M25.442 Office Visit 12/22/2015 10:10a Main Office Douglas Reynolds M.D. 83095 R63.4 Office Visit 11/29/2015 11:20a Main Office Douglas Reynolds M.D. 32480 M79.605 R63.4 Office Visit 11/03/2015 11:20a Main Office Douglas Reynolds M.D. 04561 M79.605 R63.0 M25.511 Office Visit 10/23/2015 2:10p Main Office Douglas Reynolds M.D. 47952 M79.605 R63.0 Office Visit 10/04/2015 10:00a Main Office Douglas Reynolds M.D. 11446 M79.605 R63.0 Office Visit 05/01/2015 1:20p [facility] Yolis Kirby M.D. 94091 R60.0 I10 E55.9 Office Visit 04/12/2015 3:40p [facility] Yolis Kirby M.D. 93081 R60.0 I10 E55.9 Z23 Office Visit 02/24/2015 11:00a [facility] Office PALMA Cheek 25802 R05 Office Visit 01/11/2015 2:40p [facility] Office Yolis Kirby M.D. 95159 R60.0 Office Visit 01/04/2015 11:00a [facility] Office Yolis Kirby M.D. 72956 782.3 Office Visit 12/29/2014 7:40p Main Office Yolis Kirby M.D. 57232 782.3 Office Visit 10/14/2014 11:00a [facility] Office PALMA Cheek 19867 719.41 782.7 E888.1 Office Visit 10/03/2014 2:00p [facility] Office Merari ShoemakerALISSON 32707 719.41 782.7 E888.1 Office Visit 09/30/2014 11:30a [facility] Office PALMA Cheek 07155 719.41 782.7 Office Visit 06/07/2014 10:20a [facility] Douglas Reynolds M.D. 52534 780.93 307.7 788.30 Office Visit 05/24/2014 1:10p [facility] Office Douglas Reynolds M.D. 44693 733.6 Office Visit 02/08/2014 3:10p [facility] Office Douglas Reynolds M.D. 92692 272.0 788.63 Office Visit 02/02/2014 9:00a [facility] Merry Ni, [facility] 66422 782.1 272.0 796.2 V77.1 788.63 Office Visit 11/04/2012 10:00a [facility] Office Douglas Reynolds M.D. 89804 719.46 Office Visit 09/10/2011 2:10p [facility] Douglas Reynolds M.D. 01773 788.30 Office Visit 03/15/2011 2:00p [facility] Pema Ruvalcaba alissonC 95687 465.8 Office Visit 11/23/2009 10:45a [facility] Kary Bhatia, [facility] 12675 692.6 Office Visit 05/23/2009 9:40a [facility] Douglas Reynolds M.D. 31508 719.46 Office Visit 04/18/2009 11:20a [facility] Douglas Reynolds M.D. 40183 719.46 V04.81 Office Visit 12/06/2008 8:10a [facility] Douglas Reynolds M.D. 64700 780.79 780.93 272.0 716.90 V05.8 791.7 Office Visit 07/05/2008 11:00a [facility] Douglas Reynolds M.D. 75960 V06.5 E906.5 884.0 Office Visit 02/04/2006 1:40p [facility] Douglas Reynolds M.D. 96329 780.4 Office Visit 12/23/2005 1:40p [facility] Office Douglas Reynolds M.D. 39737 733.99 Office Visit 12/20/2005 11:00a [facility] Douglas Reynolds M.D. 03196 780.4 Office Visit 09/25/2004 3:20p [facility] Douglas Reynolds M.D. 51456 780.79 790.93 716.90 311 V70.0 Office Visit 08/22/2003 1:10p [facility] Guillermo Saleh M.D. 37253 486 Office Visit 06/17/2003 11:00a [facility] Kamran Miranda M.D. 22883 924.9 Office Visit 02/02/2002 3:20p [facility] Douglas Reynolds M.D. 05364 780.9 692.72 780.79 788.30 Office Visit 10/15/2001 3:30p [facility] Pema RuvalcabaClarence 58279 Office Visit 10/09/2001 11:20a [facility] Enrico Arroyo M.D. 38973 Office Visit 05/04/2001 9:40a [facility] Omar Reece M.D. 20085 Office Visit 01/09/2001 9:00a [facility] Omar Reece M.D. 30104 Office Visit 03/11/2000 1:10p [facility] Omar Reece M.D. 37610 Plan of Care 10/02/2017 - Yolis Kirby M.D.I10 Essential (primary) hypertensionComments:The patient will continue to monitor blood pressure and let me know the blood pressure results if there are readings persistently above 140/80. Goal blood pressure is less than 140/80. Recommend low salt/cardiac diet and routine exercise.F41.9 Anxiety disorder, unspecifiedComments:ok to take 1/2 buspirone during dayFollow up:FebN39.3 Stress incontinence (female) (male)Comments:failed oxybutnin and vesicare; with side effects dry mouth, refer hxzucxpR02.0 Primary generalized (osteo)arthritisComments:trace brace at bedtime, stretchingAllComments:~B_~U_Medication Management~b_~u_ Patient Understands medications she's taking? Yes No Are there Barriers to Adherence? Yes No Has the patient been asked about herbal supplements and therapies, and OTC meds? Yes No
[2017-10-23 17:23] VITALS: BP 166/90
--- NOTE | 2017-10-23 19:05 | UC ---
Hand/Wrist HPI - HPI Summary HPI Summary: Patient is an 87-year-old female presenting to the with left hand and wrist red swollen, started friday. Denies known injury. Denies any history of diabetes. Patient is otherwise healthy despite being 87 years old. She endorses a mild amount of pain to the wrist, but no decreased LOC. - History Of Current Complaint Chief Complaint: UCSkin Stated Complaint: LEFT HAND COMPLAINT Time Seen by Provider: 10/23/17 17:36 Hx Obtained From: Patient Hx Last Menstrual Period: na ?: No Onset/Duration: Sudden Onset Severity Initially: Moderate Severity Currently: Moderate Pain Intensity: 0 Pain Scale Used: 0-10 Numeric Character Of Pain: Aching Associated Signs And Symptoms: Positive: Swelling, Redness Related History: Dominant Hand Right - Risk Factors Compartment Syndrome Risk Factors: Pain - Allergies/Home Medications Allergies/Adverse Reactions: Allergies Allergy/AdvReac Type Severity Reaction Status Date / Time Sulfa (Sulfonamide Allergy Intermediate Rash Verified 10/23/17 18:21 Antibiotics) tetracycline Allergy Intermediate Rash Verified 10/23/17 18:21 Perfume Allergy Rash Verified 10/23/17 18:21 seasonal allergies Allergy Runny Nose Uncoded 10/23/17 18:21 Home Medications: Home Medications Mirabegron (NF) [Myrbetriq (NF)] 25 mg PO 10/23/17 [History] PMH/Surg Hx/FS Hx/Imm Hx Previously Healthy: Yes - Surgical History Surgical History: Yes Surgery Procedure, Year, and Place: right ctr 1992 [facility]. left ankle orif 1998 [facility] [place]. cataract bilat 2001 [facility]. septoplasty. left knee arthroscopy 2009 [facility] [place] - Social History Occupation: Unemployed Lives: With Family Alcohol Use: None Substance Use Type: None Smoking Status (MU): Former Smoker Length of Time of Smoking/Using Tobacco: 20 YRS Have You Smoked in the Last Year: No When Did the Patient Quit Smoking/Using Tobacco: 1970s Review of Systems Constitutional: Negative Skin: Other - erythema and warmth to L hand Respiratory: Negative Cardiovascular: Negative Motor: Negative Neurovascular: Negative Musculoskeletal: Negative Psychological: Negative Is Patient Immunocompromised?: No All Other Systems Reviewed And Are Negative: Yes Physical Exam Triage Information Reviewed: Yes Appearance: Well-Appearing, Well-Nourished Vital Signs: Initial Vital Signs Temp 100.7 F 10/23/17 17:17 Pulse 95 10/23/17 17:17 Resp 24 10/23/17 17:17 BP 166/90 10/23/17 17:17 Pulse Ox 98 10/23/17 17:17 Vital Signs Reviewed: Yes Eye Exam: Normal Eyes: Positive: Conjunctiva Clear Neck exam: Normal Neck: Positive: Supple, No Lymphadenopathy Respiratory Exam: Normal Respiratory: Positive: Chest non-tender Cardiovascular Exam: Normal Cardiovascular: Positive: RRR Neurological Exam: Normal Psychological: Positive: Normal Response To Family Skin: Positive: Other - Erythema and warmth to the dorsum of the left hand Hand/Wrist Course/Dx - Course Course Of Treatment: Patient is an 87-year-old female presenting to the with complaint of cellulitis to the left hand. After assessing the wrist and hand on physical examination, I have advised her to come to the ED she needs further assessment for her fever as well as the cellulitis to her hand. She is agreeable to this. - Differential Dx/Diagnosis Provider Diagnoses: Cellulitis Discharge - Sign-Out/Discharge Documenting (check all that apply): Patient Departure - Discharge Plan Condition: Stable Disposition: HOME-RECOMMEND TO ED Referrals: Yolis Kirby MD [Primary Care Provider] - Additional Instructions: Go directly to the ED - Billing Disposition and Condition Condition: STABLE Disposition: Home-Recommend to ED Attestation Statement User Type: Provider - I was available for consult. This patient was seen by the KENJI. The patient was not presented to, seen by, or examined by me. -Myrna
== END 2017-10-23 17:45 | disposition home health service (06) ==
LOC: UCEAST 17:06
DX: L03.114 Cellulitis of left upper limb (principal); Z88.1 Allergy status to other antibiotic agents; Z88.2 Allergy status to sulfonamides; Z87.891 Personal history of nicotine dependence
CPT/HCPCS: 99202; G0463

== ENCOUNTER 2017-10-23 18:11 | Inpatient (IN) | payer MEDICARE ==
[2017-10-23] MEDS ORDERED: NS 0.9% 1000 ML*IV.FLUID IV ONE (18:40)
[2017-10-23] MEDS ORDERED: Vancomycin(*) 1,000 MG in NS 0.9% 250 ML* 250 ML IVPB ONE ×2 (18:42→22:00)
--- NOTE | 2017-10-23 19:09 | RAD ---
Indication: Fever. Comparison: December 04, 2015 CT Technique: Upright AP 1854 hours Report: Elevated lung volumes and both diffuse mild prominence of the interstitial markings and patchy rarefaction of the mid to upper lung zone interstitial markings. No focal pulmonary lesion, compelling alveolar consolidation, pleural effusion, pneumothorax. Negative for cardiomegaly. Unremarkable central pulmonary vasculature. Moderately tortuous thoracic aorta. IMPRESSION: #. Stigmata of obstructive lung disease. No acute pulmonary or cardiac process evident.
[2017-10-23 19:15] LABS: ABS Basophils 0 10^3/ul (0-0.2); ABS Eosinophils 0 10^3/ul (0-0.6); ABS Lymphocytes 0.8 10^3/ul (1.0-4.8); ABS Monocytes 0.9 10^3/ul (0-0.8); ABS Neutrophils 5.3 10^3/ul (1.5-7.7); ABS Nucleated RBC 0 10^3/ul; Eosinophil % 0 % (0-6); Hematocrit 38 % (35-47); Hemoglobin 12.9 g/dl (12.0-16.0); Lymphocyte % 11.8 % (25-47); Mean Corpuscular HGB Conc 34 g/dl (31-36); Mean Corpuscular Hemoglobin 30 pg (27-31); Mean Corpuscular Volume 89 fL (80-97); Mean Platelet Volume 8.6 um3 (7.4-10.4); Nucleated Red Blood Cells % 0; Platelet Count 170 10^3/ul (150-450); Red Blood Count 4.25 10^6/ul (4.00-5.40); Red Cell Distribution Width 14 % (10.5-15); White Blood Count 7.1 10^3/ul (3.5-10.8)
[2017-10-23 19:26] LABS: INR 1.05 (0.77-1.02)
[2017-10-23 19:34] LABS: EGFR Non-African American 82.2 (>60)
--- NOTE | 2017-10-23 19:38 | ED ---
Upper Extremity Pain - HPI Summary HPI Summary: This is scribe Manoj Saunders documenting for attending Dr. Kamran Cabello MD. A 87 y/o female present to ED c/o redness and pain on left wrist area. Additionally c/o fever. According to the patient, the redness started on Friday , 10/21/2017, however it was minor redness as it was nothing to be alarmed about. By last night, the pain had started and it was hurting the patient enough to not let her sleep. Pt denies any broken skin. Additionally, she noted that today the redness has increased substantially coupled with increased pain. Pt denies any skin or joint infection in the past. PMHx of surgery on ankle and wrist (2 fractures) and psoriasis, no DM. It was noted that the patient is not immunocompromised, no HIV or cancer. Current medications include Mobic (for pain ), otezla, glucosamine and vitamins. Saw orthopedics in year 1999. - History of Current Complaint Chief Complaint: EDFever Stated Complaint: LT HAND PAIN/SEEN AT [facility] Time Seen by Provider: 10/23/17 19:30 Hx Obtained From: Patient Hx Last Menstrual Period: na Mechanism Of Injury: Unknown Onset/Duration: Started Days Ago - 10/21/2017, Still Present, Worse Since - pain and redness Timing: Constant Severity Initially: Mild Pain Location: Wrist - left Aggravating Factor(s): Nothing Alleviating Factor(s): Nothing Associated Signs & Symptoms: Positive: Redness, Fever, Other - NEGATIVE: broken skin - Allergies/Home Medications Allergies/Adverse Reactions: Allergies Allergy/AdvReac Type Severity Reaction Status Date / Time Sulfa (Sulfonamide Allergy Intermediate Rash Verified 10/23/17 18:21 Antibiotics) tetracycline Allergy Intermediate Rash Verified 10/23/17 18:21 Perfume Allergy Rash Verified 10/23/17 18:21 seasonal allergies Allergy Runny Nose Uncoded 10/23/17 18:21 Home Medications: Home Medications Aspirin EC TAB* [Ecotrin EC Low Dose 81 MG*] 81 mg PO DAILY 10/23/17 [History Confirmed 10/23/17] Clobetasol 0.05% OINT* 1 applic TOPICAL BID 10/23/17 [History Confirmed 10/23/17 ] Olopatadine 0.1% OPHTH (NF) [Patanol 0.1% OPHTH (NF)] 1 drop BOTH EYES DAILY [History Confirmed 10/23/17] Solifenacin(NF) [Vesicare(NF)] 10 mg PO DAILY 10/23/17 [History Confirmed ] busPIRone TAB* [Buspar TAB *] 15 mg PO BEDTIME 10/23/17 [History Confirmed 10/23] PMH/Surg Hx/FS Hx/Imm Hx Endocrine/Hematology History: Denies: Hx Diabetes, Hx Systemic Lupus Erythematosus, Hx Thyroid Disease Cardiovascular History: Denies: Hx Congestive Heart Failure, Hx Hypertension, Hx Pacemaker/ICD Respiratory History: Denies: Hx Asthma, Hx Chronic Obstructive Pulmonary Disease (COPD) GI History: Denies: Hx Ulcer History: Reports: Other Problems/Disorders - INCONTINENCE Denies: Hx Dialysis, Hx Renal Disease Musculoskeletal History: Reports: Hx Arthritis Denies: Hx Rheumatoid Arthritis Sensory History: Reports: Hx Contacts or Glasses - READING GLASSES Denies: Hx Hearing Aid Opthamlomology History: Reports: Hx Contacts or Glasses - READING GLASSES Neurological History: Reports: Other Neuro Impairments/Disorders - HX OF VERTIGO Psychiatric History: Reports: Hx Anxiety Denies: Hx Panic Disorder - Cancer History Hx Chemotherapy: No - Surgical History Surgery Procedure, Year, and Place: [place] [facility] [place] 1998 [facility] [place]. [place] bil[place] 2001 [facility] [place]. septoplasty. [place] arthrosc[place] 2009 [facility] [place]x Anesthesia Reactions: No Infectious Disease History: No Infectious Disease History: Denies: Hx Hepatitis, Hx Human Immunodeficiency Virus (HIV), Traveled Outside the [place] in Last 30 Days - Family History Known Family History: Negative: Diabetes - Social History Alcohol Use: None Substance Use Type: Reports: None Smoking Status (MU): Former Smoker Length of Time of Smoking/Using Tobacco: 20 YRS Have You Smoked in the Last Year: No Review of Systems Positive: Fever Positive: Other - POSITIVE: Pain in left wrist area Positive: Other - POSITIVE: Redness of left wrist area All Other Systems Reviewed And Are Negative: Yes Physical Exam - Summary Physical Exam Summary: Appearance: Well-appearing, Well-nourished, lying in bed comfortably Skin: Warm, dry, no obvious rash. Swelling and erythema of left wrist sending into dorsal of hand. There is passive pain with ROM on wrist. Eyes: sclera anicteric, no conjunctival pallor ENT: mucous membranes moist, pharynx appears normal Neck: Supple, nontender Respiratory: Clear to auscultation, no signs of respiratory distress Cardiovascular: Normal S1, S2. No murmurs. Normal distal pulses in tibial and radial bilaterally. Abdomen: Soft, nontender, normal active bowel sounds present Musculoskeletal: Normal, Strength/ROM Intact Neurological: A&Ox3, awake and alert, mentation is normal, speech is fluent and appropriate Psychiatric: affect is normal, does not appear anxious or depressed Triage Information Reviewed: Yes Vital Signs On Initial Exam: Initial Vitals Temp Pulse Resp BP Pulse Ox 100.7 F 100 16 172/94 94 10/23/17 18:16 10/23/17 18:16 10/23/17 18:16 10/23/17 18:16 10/23/17 18:16 Vital Signs Reviewed: Yes Diagnostics - Vital Signs Vital Signs Temp Pulse Resp BP Pulse Ox 10/23/17 19:11 94 122/78 94 10/23/17 19:00 95 93 10/23/17 18:40 95 154/85 95 10/23/17 18:16 100.7 F 100 16 172/94 94 - Laboratory Lab Results: Lab Results 10/23/17 10/23/17 10/23/17 Range/Units 19:01 19:01 19:01 WBC 7.1 (3.5-10.8) 10^3/ul RBC 4.25 (4.00-5.40) 10^6/ul Hgb 12.9 (12.0-16.0) g/dl Hct 38 (35-47) % MCV 89 (80-97) fL MCH 30 (27-31) pg MCHC 34 (31-36) g/dl RDW 14 (10.5-15) % Plt Count 170 (150-450) 10^3/ul MPV 8.6 (7.4-10.4) um3 Neut % (Auto) 74.7 (38-83) % Lymph % (Auto) 11.8 L (25-47) % Rusk % (Auto) 13.1 H (0-7) % Eos % (Auto) 0 (0-6) % Baso % (Auto) 0.4 (0-2) % Absolute Neuts (auto) 5.3 (1.5-7.7) 10^3/ul Absolute Lymphs (auto) 0.8 L (1.0-4.8) 10^3/ul Absolute Monos (auto) 0.9 H (0-0.8) 10^3/ul Absolute Eos (auto) 0 (0-0.6) 10^3/ul Absolute Basos (auto) 0 (0-0.2) 10^3/ul Absolute Nucleated RBC 0 10^3/ul Nucleated RBC % 0 ESR Pending INR (Anticoag Therapy) 1.05 H (0.77-1.02) APTT 27.5 (26.0-36.3) seconds Sodium 134 L (135-145) mmol/L Potassium 3.5 (3.5-5.0) mmol/L Chloride 100 L (101-111) mmol/L Carbon Dioxide 24 (22-32) mmol/L Anion Gap 10 (2-11) mmol/L BUN 22 (6-24) mg/dL Creatinine 0.68 (0.51-0.95) mg/dL Est GFR ( Amer) 99.5 (>60) Est GFR (Non-Af Amer) 82.2 (>60) BUN/Creatinine Ratio 32.4 H (8-20) Glucose 106 H (70-100) mg/dL Lactic Acid (0.5-2.0) mmol/L Calcium 9.2 (8.6-10.3) mg/dL Total Bilirubin 1.20 H (0.2-1.0) mg/dL AST 14 (13-39) U/L ALT 11 (7-52) U/L Alkaline Phosphatase 46 (34-104) U/L Troponin I 0.01 (<0.04) ng/mL C-Reactive Protein 71.09 H (<8.01) mg/L Total Protein 7.0 (6.4-8.9) g/dL Albumin 4.0 (3.2-5.2) g/dL Globulin 3.0 (2-4) g/dL Albumin/Globulin Ratio 1.3 (1-3) 10/23/17 Range/Units 19:01 WBC (3.5-10.8) 10^3/ul RBC (4.00-5.40) 10^6/ul Hgb (12.0-16.0) g/dl Hct (35-47) % MCV (80-97) fL MCH (27-31) pg MCHC (31-36) g/dl RDW (10.5-15) % Plt Count (150-450) 10^3/ul MPV (7.4-10.4) um3 Neut % (Auto) (38-83) % Lymph % (Auto) (25-47) % Rusk % (Auto) (0-7) % Eos % (Auto) (0-6) % Baso % (Auto) (0-2) % Absolute Neuts (auto) (1.5-7.7) 10^3/ul Absolute Lymphs (auto) (1.0-4.8) 10^3/ul Absolute Monos (auto) (0-0.8) 10^3/ul Absolute Eos (auto) (0-0.6) 10^3/ul Absolute Basos (auto) (0-0.2) 10^3/ul Absolute Nucleated RBC 10^3/ul Nucleated RBC % ESR INR (Anticoag Therapy) (0.77-1.02) APTT (26.0-36.3) seconds Sodium (135-145) mmol/L Potassium (3.5-5.0) mmol/L Chloride (101-111) mmol/L Carbon Dioxide (22-32) mmol/L Anion Gap (2-11) mmol/L BUN (6-24) mg/dL Creatinine (0.51-0.95) mg/dL Est GFR ( Amer) (>60) Est GFR (Non-Af Amer) (>60) BUN/Creatinine Ratio (8-20) Glucose (70-100) mg/dL Lactic Acid 0.6 (0.5-2.0) mmol/L Calcium (8.6-10.3) mg/dL Total Bilirubin (0.2-1.0) mg/dL AST (13-39) U/L ALT (7-52) U/L Alkaline Phosphatase (34-104) U/L Troponin I (<0.04) ng/mL C-Reactive Protein (<8.01) mg/L Total Protein (6.4-8.9) g/dL Albumin (3.2-5.2) g/dL Globulin (2-4) g/dL Albumin/Globulin Ratio (1-3) Result Diagrams: 10/24/17 05:17 10/24/17 05:17 Lab Statement: Any lab studies that have been ordered have been reviewed, and results considered in the medical decision making process. - Radiology WRIST XR Radiology Interpretation Completed By: Radiologist - Soft tissue swelling concerning for presence of soft tissue infection given the clinical context. No radiographic evidence for osteomyelitis. ED PHYSICIAN REVIEWED THIS RADIOLOGY REPORT. CXR Radiology Interpretation Completed By: Radiologist - Stigmata of obstructive lung disease. No acute pulmonary or cardiac process evident. ED PHYSICIAN REVIEWED THIS RADIOLOGY REPORT. Re-Evaluation - Re-Evaluation First Eval Re-Evaluation Time: 20:18 Comment: Orthopedist is seeing patient. Recommends admission. Dr. Cabello will call hospitalist. Course/Dx - Diagnoses Provider Diagnoses: Septic arthritis of wrist - Physician Notifications Discussed Care of Patient With: Boom Nguyen Time Discussed With Above Provider: 19:30 Instructed by Provider To: Other - Dr. Nguyen will be coming into see patient. Dr. Nguyen accepts patient for admission. Discharge - Sign-Out/Discharge Documenting (check all that apply): Patient Departure - ADMIT - Discharge Plan Condition: Stable Disposition: ADMITTED TO [facility] - Billing Disposition and Condition Condition: STABLE Disposition: Admitted to [facility]
--- NOTE | 2017-10-23 20:02 | RAD ---
INDICATION: LEFT wrist pain, redness, and swelling. Clinical concern for potential septic joint. COMPARISON: No relevant prior exams available on the [facility] [place] PACS for comparison. TECHNIQUE: AP, lateral, and oblique views LEFT wrist. REPORT: Extensive soft tissue swelling about the distal forearm, wrist, and visualized hand. No subcutaneous emphysema or conspicuous foreign body evident. Bone density appears decreased throughout. Negative for fracture or dislocation. Marked degenerative arthropathy at the basal joint of the thumb. Degenerative subchondral cysts at the distal radius. No periosteal reaction or osseous erosions evident. IMPRESSION: #. Soft tissue swelling concerning for presence of soft tissue infection given the clinical context. #. No radiographic evidence for osteomyelitis.
[2017-10-23] MEDS ORDERED: Vancomycin(*) 1,250 MG in NS 0.9% 250 ML* 250 ML IVPB ONE (20:18)
[2017-10-23] MEDS ORDERED: Lidocaine 1%* 5 ML VIAL ONE (20:56)
[2017-10-23] MEDS ORDERED: Ondansetron INJ* 2 MG/ML VIAL IV PRN (21:50)
[2017-10-23] MEDS ORDERED: Acetaminophen TAB* 325 MG PO PRN (21:50)
[2017-10-23 21:58] LABS: Urine Appearance Clear; Urine Blood 1+ (Negative); Urine Color Straw; Urine Ketones Trace (Negative); Urine Protein Negative (Negative); Urine Red Blood Cell Trace(0-2/hpf) (Absent); Urine Specific Gravity 1.005 (1.010-1.030); Urine Urobilinogen Negative (Negative); Urine White Blood Cell Absent (Absent)
[2017-10-23] MEDS ORDERED: Vancomycin per Pharmacy* NOTE FOLLOW UP SCH (22:00)
--- NOTE | 2017-10-23 22:22 | CONS ---
EMERGENCY ROOM CONSULTATION REPORT: DATE OF CONSULT: 10/23/17. HISTORY OF PRESENT ILLNESS: Ms. Rider is an 87-year-old woman, was seen in emergency room at 2100 hours. She is a relatively active [facility] client, who has had 48 hours of left wrist pain and swelling with some erythema. There is no history of any penetrating issue nor bug bite. She has been completely healthy except for sore throat approximately a week ago that lasted for a couple of days. Today in the emergency room, she is noted to be a 100.7 temperature. She has had no history of gout. No history of pseudogout. She does not have a history of rheumatoid arthritis. She has had cortisone injections in her knees. To the best of her knowledge, she has some generalized osteoarthritis and a history of some psoriasis. MEDICATIONS: Ms. Rider takes: 1. Otezla for psoriasis. 2. Multivitamins. 3. Mobic. 4. Aspirin. ALLERGIES: She has an allergy to SULFA and TETRACYCLINE. SOCIAL HISTORY: She does not smoke. REVIEW OF SYSTEMS: She has no medical history of cardiac disease, high blood pressure, hyperlipidemia, asthma, congestive heart failure, abdominal distress, diarrhea, diabetes, neurological issues, depression or anxiety. PHYSICAL EXAM: On examination, she is alert and pleasant, and in no acute distress, slightly hard of hearing. Her blood pressure systolic is 180. As I said, her maximum temp so far in the emergency room has been 100.7. She is not diaphoretic. There is no shortness of breath. There is no shoulder pain, elbow pain, MCP pain. Her tenderness is at the left radial carpal joint and ulnar carpal joint. There is no drainage. There is no fluctuance. Slight edema is noted with some erythema. 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 There is no overt erosive changes. IMPRESSION AND PLAN: After time-out and with the patient's consent, I aspirated 0.5 cc of bloody cloudy fluid from her left radial carpal joint. This was a dorsal lateral approach with some lidocaine in the skin. This fluid will be sent for culture, Gram stain, cell count, and crystals. I have spoken with the hospitalist service about an admission overnight, I have started her on vancomycin. She will be observed overnight pending culture results from the wrist. [id number]/[facility] #: [id number] [facility] HAYES HOSPITALAníbal
[2017-10-23] MEDS: amLODIPine TAB* 5 MG PO SCH (23:15)
[2017-10-23] MEDS: Heparin VIAL(*) 5000 UNITS/ML VIAL (FIVE THOUSAND) SUBCUT SCH (23:16)
--- NOTE | 2017-10-24 01:16 | HP ---
CC: Dr. Yolis Kirby; Dr. Nguyen * HISTORY AND PHYSICAL: DATE OF ADMISSION: 10/23/17 PRIMARY CARE PROVIDER: Dr. Yolis Kirby. ATTENDING PHYSICIAN WHILE IN THE HOSPITAL: Dr. Juliet Almazan * (report dictated by Lucas Quiros NP) CONSULTING ORTHOPEDIST: Dr. Nguyen. CHIEF COMPLAINT: Left wrist swelling and redness. HISTORY OF PRESENT ILLNESS: Ms. Rider is an 87-year-old female patient. She presents today stating that she has noticed over the last couple of days that her wrist has been progressively getting worsening redness, swelling, and pain. She has had a low grade fever of 100. She states that over the weekend, she did have a sore throat on Friday and was told that she had white patches, never had any fevers over the weekend, but states that the sore throat went away and then she started developing the wrist pain. She denied having any nausea or vomiting. She denied any abdominal pain. She states she has not had any other joint pain. She denies any trauma to the joint. Denies having any abrasions or open skin areas near the joint. She was concerned because of the redness getting worse, the daughter actually came into visit her today from [place], saw the wrist, she is a nurse and brought her to Urgent Care, they sent her here. She has not had any chest pain or shortness of breath. She states that prior to this, she was fairly active. She does [place] [employer]. She does have history of anxiety and at times does have difficulty with word finding when she becomes anxious according to the daughter. The patient came into the ER and was evaluated. There was a concern for possible septic arthritis. She was evaluated by Orthopedics and we were asked to evaluate for admission. PAST MEDICAL HISTORY: Significant for: 1. Psoriasis. 2. Arthritis. 3. Anxiety. 4. TIA. 5. Overactive bladder. PAST SURGICAL HISTORY: 1. The patient has had a carpal tunnel repair. 2. She has had right ankle surgery. HOME MEDICATIONS: Include: 1. Aspirin 81 mg daily. 2. Patanol 1 drop both eyes daily. 3. Claritin 10 mg p.o. daily as needed. 4. Clobetasol 1 application topically b.i.d. 5. BuSpar 15 mg p.o. daily at bedtime. 6. VESIcare 10 mg p.o. daily. We need to clarify this med rec as this was obtained from [facility]. We will need to get an accurate list. Her daughter states that she will help us with this. ALLERGIES TO MEDICATIONS: Include SULFA, TETRACYCLINE, PERFUME, and SEASONAL ALLERGIES. FAMILY HISTORY: Her mother did have asthma. Father's history was reviewed and she states again, father of old age. SOCIAL HISTORY: She smoked in the 70s for about 10 years. She does not smoke anymore. She quit in the 70s. She does not drink alcohol. She lives at [place]. Her surrogate decision maker is her daughter. REVIEW OF SYSTEMS: There is a documented fever here. She denied having any significant weight change. There is no ear discharge. There was no rhinorrhea. There is no sore throat or thyroid enlargement. She denied having any chest pain. There is no orthopnea. There is no nocturnal dyspnea. She is denying having any abdominal pain. There was no nausea, no vomiting. No dysuria, no frequency. There was no seizure, no loss of consciousness. No pruritus and no skin ulcerations. Review of 14 systems was completed, all others negative. PHYSICAL EXAMINATION GENERAL: At this time, Ms. Rider is an 87-year-old female patient. She is sitting in the ED stretcher. She does not appear to be in any acute distress. VITAL SIGNS: Blood pressure was 181/104, most recently when she came in, it was 172/94, heart rate 90, respirations were 18, O2 sat 97%, temperature 100.7. HEENT: Head: Atraumatic and normocephalic. Eyes: EOMs are intact. Sclerae anicteric and not pale. Throat: Oral mucosa does appear to be moist. She does have erythema in the pharyngeal space with white patches. No adenopathy was noted. NECK: Supple. LUNGS: Clear to auscultation bilaterally. No wheezes, rales, or rhonchi. HEART: Sounds S1, S2. Regular rate and rhythm. No murmurs, rubs, or gallops. ABDOMEN: Soft, flat, nontender. Bowel sounds are present. EXTREMITIES: Pulses were 2+ throughout. Her left wrist is edematous. There is erythema surrounding the left wrist. She does have limited range of motion. She has limited extension and flexion of the fingers. The auto damage estimator is a little bit weaker on that left side. She has no pain. There is pain palpated on the medial and lateral aspects of the left wrist. NEUROLOGICAL: The patient is awake. She is alert. When she becomes anxious, she has difficulty with her speech; but when she slows down, takes her time, her speech is clear, it is fluent. She knows her date. She knows her name. She knows the time and place. No gross focal neurological deficits were noted. No facial drooping. SKIN: Grossly intact. DIAGNOSTIC STUDIES/LAB DATA: WBC of 7.1, RBC of 4.25, hemoglobin 12.9, hematocrit 38, platelet count of 140. INR 1.05. PTT 27.5. Sodium 134, potassium 3.5, chloride 100, bicarb 24, BUN 22, creatinine 0.68, glucose 106, lactate 0.6, calcium 9.2. Total bili 1.2, AST 14, ALT 11, alk phos 46, troponin 0.01. CRP was 71. ESR was 61. Albumin was 4. Urine is pending. She did have a wrist x-ray obtained today, which impression showed soft tissue swelling concerning for presence of soft tissue infection given clinical context , no radiographic evidence for osteomyelitis. Chest x-ray was obtained today, it showed stigmata of obstructive lung disease. No acute cardiopulmonary process evident. Old medical records reviewed. ASSESSMENT AND PLAN: Ms. Rider is an 87-year-old female patient coming into the ED today with complaints of redness, swelling about the left joint, getting worse over the last couple of days. She was evaluated by Orthopedics. We were asked to evaluate for admission. She will be admitted under inpatient status for: 1. Cellulitis versus possible septic joint. Dr. Nguyen did evaluate the patient. He is planning for possible washout and I and D tomorrow. In terms of her RCRI, she is low-risk for complications. She scores 0. She has no cardiovascular disease. She is very active. I am getting an EKG. If this is stable, she will be medically optimized. I am going to put her on vancomycin. We will get blood cultures. Fluid cultures have been sent and ordered by Dr. Nguyen and we will continue with passive range of motion. We will continue to follow. 2. Hypertension. Her blood pressure here when she initially came in was in the 170. She did get 2 L of fluid in the ER. It has been elevated since. I am going to start her on some p.r.n. hydralazine and Norvasc. We will continue to follow. This is hypertensive urgency. She has no signs of an end-organ damage. 3. Pharyngitis. I am going to swab the throat as the risk may be a reactive arthritis possibly, so I am swabbing the throat for this purpose. 4. History of psoriasis. We will get an accurate med list and continue meds as prescribed. 5. Arthritis. Continue meds as prescribed. 6. Overactive bladder. She was on VESIcare, but she states she stopped this. We need to clarify this with her pill bottles, her daughter will be bringing these in. 7. DVT prophylaxis: We will continue heparin. 8. Code status: Full code. 9. Fluids, electrolytes, and nutrition. She will have a regular diet, then n.p.o. after midnight. TIME SPENT: Time spent on admission was 60 minutes, greater than half the time was spent [id number] with the patient obtaining my history and physical, other half of the time was spent going over the plan of care with the patient and implementing the plan of care. I did discuss the plan of care with my attending, Dr. Almazan, she is in agreement. LUCAS QUIROS NP [id number]/CPS #: [id number] CLIVE
[2017-10-24] MEDS: Heparin VIAL(*) 5000 UNITS/ML VIAL (FIVE THOUSAND) SUBCUT SCH ×3 (05:40→21:44)
[2017-10-24 05:52] LABS: ABS Basophils 0 10^3/ul (0-0.2); ABS Eosinophils 0 10^3/ul (0-0.6); ABS Lymphocytes 1.2 10^3/ul (1.0-4.8); ABS Neutrophils 4.8 10^3/ul (1.5-7.7); ABS Nucleated RBC 0 10^3/ul; Eosinophil % 0.3 % (0-6); Hematocrit 38 % (35-47); Hemoglobin 12.7 g/dl (12.0-16.0); Lymphocyte % 17.4 % (25-47); Mean Corpuscular HGB Conc 34 g/dl (31-36); Mean Corpuscular Hemoglobin 30 pg (27-31); Mean Corpuscular Volume 89 fL (80-97); Mean Platelet Volume 8.8 um3 (7.4-10.4); Nucleated Red Blood Cells % 0.1; Platelet Count 175 10^3/ul (150-450); Red Blood Count 4.23 10^6/ul (4.00-5.40); Red Cell Distribution Width 14 % (10.5-15)
[2017-10-24 06:01] LABS: INR 1.05 (0.77-1.02)
[2017-10-24 06:19] LABS: EGFR Non-African American 100.8 (>60)
[2017-10-24] MEDS: Vancomycin(*) 750 MG in NS 0.9% 250 ML* 250 ML IVPB SCH ×2 (07:41→19:38)
[2017-10-24] MEDS: amLODIPine TAB* 5 MG PO SCH (08:20)
[2017-10-24] MEDS: Aspirin EC TAB* 81 MG TAB.EC PO SCH (08:21)
--- NOTE | 2017-10-24 08:42 | PN ---
Subjective Date of Service: 10/24/17 Interval History: Mrs. Rider reports doing better today. She still has occasional left hand/wrist pain when she makes a fist, but denies any throbbing pain at rest. No fever or chills last night. Has been NPO for possible I&D L wrist today. No bacterial growth in initial fluid analysis from L wrist aspiration. She was seen by Dr. Nguyen last night. Ceftrixon added to her Vancomycin this AM. Family History: Unchanged from Admission Social History: Unchanged from Admission Past Medical History: Unchanged from Admission Objective Active Medications: Acetaminophen (Tylenol Tab*) 650 mg PO Q4H PRN PRN Reason: FEVER/PAIN Amlodipine Besylate (Norvasc Tab*) 5 mg PO DAILY [facility] Last Admin: 10/24/17 08:20 Dose: Not Given Aspirin (Aspirin Ec Tab*) 81 mg PO DAILY [facility] Last Admin: 10/24/17 08:21 Dose: Not Given Buspirone HCl (Buspar Tab *) 15 mg PO BEDTIME [facility] Heparin Sodium (Porcine) (Heparin Vial(*)) 5,000 units SUBCUT Q8HR [facility] Last Admin: 10/24/17 05:40 Dose: 5,000 units Hydralazine HCl (Apresoline Iv*) 5 mg IV SLOW PU Q6H PRN PRN Reason: BLOOD PRESSURE Vancomycin HCl 750 mg/ Sodium (Chloride) 250 mls @ 166.667 mls/hr IVPB Q12H [facility] Last Admin: 10/24/17 07:41 Dose: 166.667 mls/hr Ceftriaxone Sodium 1 gm/ (Sodium Chloride) 50 mls @ 200 mls/hr IVPB Q24H [facility] Ondansetron HCl (Zofran Inj*) 4 mg IV Q6H PRN PRN Reason: NAUSEA Pharmacy Consult (Vancomycin Per Pharmacy*) 1 note FOLLOW UP .VANC PER PHARMACY [facility] Pharmacy Profile Note (Vancomycin Trough Check) 1 note FOLLOW UP 729 ONE Stop: 10/25/17 07:31 Vital Signs - 8 hr 10/24/17 10/24/17 03:25 07:15 Temperature 98.9 F 98.9 F Pulse Rate 89 88 Respiratory 16 16 Rate Blood Pressure 148/77 140/70 (mmHg) O2 Sat by Pulse 94 96 Oximetry Oxygen Devices in Use Now: None Appearance: Sitting up in her bed, appears comfortable and in NAD. Eyes: No Scleral Icterus, PERRLA Ears/Nose/Mouth/Throat: Clear Oropharnyx - No pharyngeal erythema noted or exudate noted., Mucous Membranes Moist Neck: NL Appearance and Movements; NL JVP, Trachea Midline Respiratory: Symmetrical Chest Expansion and Respiratory Effort, Clear to Auscultation Cardiovascular: NL Sounds; No Murmurs; No JVD, RRR Abdominal: NL Sounds; No Tenderness; No Distention Extremities: No Edema, - - Left hand/wrist with marked erythema and swelling to dorsal asepct of the hand, warm to touch and mildly tender to palpation. No crepitus noted. No skin break down or discharge noted. Radial pulse intact. Sensation intact distally. Limited passive range of motion to L wrist and L phalenges due to swelling. Skin: No Rash or Ulcers Neurological: Alert and Oriented x 3, NL Sensation, NL Muscle Strength and Tone Result Diagrams: 10/24/17 05:17 10/24/17 05:17 Additional Lab and Data: Lab Results 10/23/17 10/23/17 10/23/17 Range/Units 19:01 19:01 19:01 WBC 7.1 (3.5-10.8) 10^3/ul RBC 4.25 (4.00-5.40) 10^6/ul Hgb 12.9 (12.0-16.0) g/dl Hct 38 (35-47) % MCV 89 (80-97) fL MCH 30 (27-31) pg MCHC 34 (31-36) g/dl RDW 14 (10.5-15) % Plt Count 170 (150-450) 10^3/ul MPV 8.6 (7.4-10.4) um3 Neut % (Auto) 74.7 (38-83) % Lymph % (Auto) 11.8 L (25-47) % [place] % (Auto) 13.1 H (0-7) % Eos % (Auto) 0 (0-6) % Baso % (Auto) 0.4 (0-2) % Absolute Neuts (auto) 5.3 (1.5-7.7) 10^3/ul Absolute Lymphs (auto) 0.8 L (1.0-4.8) 10^3/ul Absolute Monos (auto) 0.9 H (0-0.8) 10^3/ul Absolute Eos (auto) 0 (0-0.6) 10^3/ul Absolute Basos (auto) 0 (0-0.2) 10^3/ul Absolute Nucleated RBC 0 10^3/ul Nucleated RBC % 0 ESR Pending INR (Anticoag Therapy) 1.05 H (0.77-1.02) APTT 27.5 (26.0-36.3) seconds Sodium 134 L (135-145) mmol/L Potassium 3.5 (3.5-5.0) mmol/L Chloride 100 L (101-111) mmol/L Carbon Dioxide 24 (22-32) mmol/L Anion Gap 10 (2-11) mmol/L BUN 22 (6-24) mg/dL Creatinine 0.68 (0.51-0.95) mg/dL Est GFR ( Amer) 99.5 (>60) Est GFR (Non-Af Amer) 82.2 (>60) BUN/Creatinine Ratio 32.4 H (8-20) Glucose 106 H (70-100) mg/dL Lactic Acid (0.5-2.0) mmol/L Calcium 9.2 (8.6-10.3) mg/dL Total Bilirubin 1.20 H (0.2-1.0) mg/dL AST 14 (13-39) U/L ALT 11 (7-52) U/L Alkaline Phosphatase 46 (34-104) U/L Troponin I 0.01 (<0.04) ng/mL C-Reactive Protein 71.09 H (<8.01) mg/L Total Protein 7.0 (6.4-8.9) g/dL Albumin 4.0 (3.2-5.2) g/dL Globulin 3.0 (2-4) g/dL Albumin/Globulin Ratio 1.3 (1-3) / Range/Units 19:01 WBC (3.5-10.8) 10^3/ul RBC (4.00-5.40) 10^6/ul Hgb (12.0-16.0) g/dl Hct (35-47) % MCV (80-97) fL MCH (27-31) pg MCHC (31-36) g/dl RDW (10.5-15) % Plt Count (150-450) 10^3/ul MPV (7.4-10.4) um3 Neut % (Auto) (38-83) % Lymph % (Auto) (25-47) % Berrien % (Auto) (0-7) % Eos % (Auto) (0-6) % Baso % (Auto) (0-2) % Absolute Neuts (auto) (1.5-7.7) 10^3/ul Absolute Lymphs (auto) (1.0-4.8) 10^3/ul Absolute Monos (auto) (0-0.8) 10^3/ul Absolute Eos (auto) (0-0.6) 10^3/ul Absolute Basos (auto) (0-0.2) 10^3/ul Absolute Nucleated RBC 10^3/ul Nucleated RBC % ESR INR (Anticoag Therapy) (0.77-1.02) APTT (26.0-36.3) seconds Sodium (135-145) mmol/L Potassium (3.5-5.0) mmol/L Chloride (101-111) mmol/L Carbon Dioxide (22-32) mmol/L Anion Gap (2-11) mmol/L BUN (6-24) mg/dL Creatinine (0.51-0.95) mg/dL Est GFR ( Amer) (>60) Est GFR (Non-Af Amer) (>60) BUN/Creatinine Ratio (8-20) Glucose (70-100) mg/dL Lactic Acid 0.6 (0.5-2.0) mmol/L Calcium (8.6-10.3) mg/dL Total Bilirubin (0.2-1.0) mg/dL AST (13-39) U/L ALT (7-52) U/L Alkaline Phosphatase (34-104) U/L Troponin I (<0.04) ng/mL C-Reactive Protein (<8.01) mg/L Total Protein (6.4-8.9) g/dL Albumin (3.2-5.2) g/dL Globulin (2-4) g/dL Albumin/Globulin Ratio (1-3) Microbiology and Other Data: Microbiology 10/23/17 21:09 Gram Stain - Final Joint Fluid(Synovial) - Wrist Right 10/23/17 23:15 Group A Streptococcus Rapid Screen - Final Throat Specimen received for Rapid Strep A Molecular testing 10/23/17 21:09 Skin and Soft Tissue MRSA/MSSA (PCR - Final Wrist Left Mrsa Negative S.aureus Negative Diagnostic Imaging: Patient Name: NORBERTO RIDER Medical Record#: [id number] Ordering Physician: Kamran Cabello MD Acct.#: [id number] : 1930 Age: 87 Sex: F Location: EMERGENCY DEPARTMENT Exam Date: 10/23/171941 ADM Status: REG ER Order Information: WRIST LEFT 3+ VWS Accession Number: [id number] CPT: 49903 INDICATION: LEFT wrist pain, redness, and swelling. Clinical concern for potential septic joint. COMPARISON: No relevant prior exams available on the [facility] PACS for comparison. TECHNIQUE: AP, lateral, and oblique views LEFT wrist. REPORT: Extensive soft tissue swelling about the distal forearm, wrist, and visualized hand. No subcutaneous emphysema or conspicuous foreign body evident. Bone density appears decreased throughout. Negative for fracture or dislocation. Marked degenerative arthropathy at the basal joint of the thumb. Degenerative subchondral cysts at the distal radius. No periosteal reaction or osseous erosions evident. IMPRESSION: #. Soft tissue swelling concerning for presence of soft tissue infection given the clinical context. #. No radiographic evidence for osteomyelitis. <Electronically signed by Meir Cheek MD in OV> 10/23/171958 Dictated By: Meir Cheek MD Dictated Date/Time: 10/23/171958 Transcribed Date/Time: 10/23/171955 Patient Name: NORBERTO RIDER Medical Record#: [id number] Ordering Physician: Waylon HARLEY Acct.#: [id number] : 1930 Age: 87 Sex: F Location: SURGICAL STAY UNIT Exam Date: 10/24/17 0833 ADM Status: ADM IN Order Information: MRI WRIST LEFT W/O Accession Number: [id number] CPT: 43500 Indication: LEFT wrist and hand cellulitis. Concern for septic arthritis of the LEFT wrist and hand. IMPRESSION: #. The constellation of findings given the clinical context is consistent with superficial and deep soft tissue infection with septic arthritis at the wrist and septic tenosynovitis involving the superficialis and profundus flexor tendons. #. Polyarticular osteoarthritis. Associated subchondral cystic change and marrow edema most prominent at the distal radius. Presence of arthropathy and associated bony change limits sensitivity and specificity for diagnosis of early osteomyelitis. At this time bone marrow signal changes are most suggestive of spectrum of osteoarthritis. <Electronically signed by Meir Cheke MD in OV> 10/24/17 1352 Dictated By: Meir Cheek MD Dictated Date/Time: 10/24/17 1352 Transcribed Date/Time: 10/24/17 1340 Copy to: Assess/Plan/Problems-Billing Assessment: An 87 y/o female with PMH of HTN, arthritis and psoriasis, who presented to ED with 2 days hx worsening Left hand/wrist swelling and redness, who was found to have septic joint on MRI earlier today. - Patient Problems (1) Septic arthritis of wrist, left Current Visit: Yes Status: Acute Comment: - Continue broad spectrum Abx coverage - Spoke with Dr. Nguyen and Dr. San, recommended NPO after midnight - Likely to be taken to OR in AM for I&D left wrist/hand - Spoke with her daughter who agreed to plans of care. (2) Cellulitis of hand, left Current Visit: Yes Status: Acute Comment: - Contine Vanco and Ceftrixone (3) Hypertension Current Visit: Yes Status: Acute Comment: - Continue home Norvasc and Hydralazine prn (4) Pharyngitis Current Visit: Yes Status: Acute Comment: - negative strept throat - Supportive care (5) Arthritis Current Visit: Yes Status: Acute Comment: - Tylenol as needed for pain - Supportive care (6) Overactive bladder Current Visit: Yes Status: Acute (7) Hx of psoriasis Current Visit: Yes Status: Acute Comment: - Stable at this time (8) DVT prophylaxis Current Visit: Yes Status: Acute Comment: - SubQ heparin (9) Full code status Current Visit: Yes Status: Acute Status and Disposition: Inpatient. Likely to OR tomorrow morning. Anticipate discharge when medically stable.
[2017-10-24] MEDS: cefTRIAXone(*) 1 GM in NS 0.9% 50 ML* 50 ML IVPB SCH (09:33)
--- NOTE | 2017-10-24 11:10 | PN ---
PROGRESS NOTE: DATE OF SERVICE: 10/24/17 SUBJECTIVE: Karen is seen this morning in her hospital bed. She is afebrile. She is in no acute distress, comfortable. She is concerned her hand is still quite swollen, but her pain is improved by her own account. She is able to flex and extend her fingers, although there is some discomfort in forward flexion at the MCPs primarily due to the swelling. There is significant amount of edema over the dorsum of the hand, but no fluctuance. We aspirated her wrist last night and I went to the lab this morning to speak with the personnel and payroll technician. There was a reasonable material for a proper plating for culture and this will be pending in another 24 hours for preliminary reading. The Gram stain itself though did not show any organisms and the PCR was negative for Staph aureus. PLAN: I do not have any significant evidence for a bacterial pyarthrosis at this time and the patient appears to be responding in terms of pain and erythema to overnight antibiotics. My plan for her would not be to open the wrist at this time. In the absence of positive Gram stain or fluctuance, we will continue to observe on IV antibiotics and pending preliminary culture results. [id number]/[facility] #: [id number] HUNTINGTON HOSPITALAníbal
--- NOTE | 2017-10-24 13:55 | RAD ---
Indication: LEFT wrist and hand cellulitis. Concern for septic arthritis of the LEFT wrist and hand. Comparison: October 23, 2017 radiographs. Technique: Bubbla 1.5 Sarah [id number] with GEM suite. Noncontrast MRI distal LEFT forearm through the metacarpal region of the hand. Report: Extensive infiltrative superficial and deep soft tissue edema most marked over the dorsum of the hand. Distal radioulnar, radiocarpal, and midcarpal joint effusions. Large volume of fluid within the superficial and profunda flexor tendon sheaths of the hand from the level of the carpometacarpal joints through the mid metacarpal region. Polyarticular advanced degenerative arthropathy most marked at the basal joint of the thumb. Associated subchondral cystic change at the distal radius. Surrounding bone marrow edema. Central perforation in the triangular fibrocartilage. IMPRESSION: #. The constellation of findings given the clinical context is consistent with superficial and deep soft tissue infection with septic arthritis at the wrist and septic tenosynovitis involving the superficialis and profundus flexor tendons. #. Polyarticular osteoarthritis. Associated subchondral cystic change and marrow edema most prominent at the distal radius. Presence of arthropathy and associated bony change limits sensitivity and specificity for diagnosis of early osteomyelitis. At this time bone marrow signal changes are most suggestive of spectrum of osteoarthritis.
--- NOTE | 2017-10-24 19:10 | PN ---
Progress Note - Progress Note Date of Service: 10/24/17 Note: I went and saw Karen. I was asked to help with her care by my colleague, Dr. Nguyen. She has had worsening left wrist and hand pain, swelling, erythema over the last few days. An aspiration from the wrist yesterday has not grown any bacteria, but the MRI did reveal a joint effusion, synovitis, and possibly some soft tissue involvement. She has been on IV antibiotics, and if anything, feels it has worsened. She has significant swelling throughout the wrist and hand area both dorsally and palmarly. There is some associated erythema and tenderness. She is able to flex and extend all of her fingers. She does have a palpable radial pulse. I discussed everything with her and her family members and we decided that the best course of action would be to perform an irrigation and debridement. Hopefully, this will provide control of the infection. She'll be n.p.o. at midnight and we will plan on doing this first thing tomorrow morning. All their questions were answered. Justin Campbell MD
[2017-10-24] MEDS: busPIRone TAB* 15 MG PO SCH (21:45)
[2017-10-25] MEDS: Heparin VIAL(*) 5000 UNITS/ML VIAL (FIVE THOUSAND) SUBCUT SCH ×3 (05:32→22:07)
[2017-10-25 07:01] LABS: ABS Basophils 0 10^3/ul (0-0.2); ABS Eosinophils 0 10^3/ul (0-0.6); ABS Lymphocytes 1.2 10^3/ul (1.0-4.8); ABS Monocytes 0.9 10^3/ul (0-0.8); ABS Neutrophils 3.9 10^3/ul (1.5-7.7); ABS Nucleated RBC 0 10^3/ul; Eosinophil % 0.8 % (0-6); Hematocrit 38 % (35-47); Hemoglobin 12.8 g/dl (12.0-16.0); Lymphocyte % 19.6 % (25-47); Mean Corpuscular HGB Conc 34 g/dl (31-36); Mean Corpuscular Hemoglobin 30 pg (27-31); Mean Corpuscular Volume 89 fL (80-97); Mean Platelet Volume 8.7 um3 (7.4-10.4); Nucleated Red Blood Cells % 0.1; Platelet Count 171 10^3/ul (150-450); Red Blood Count 4.26 10^6/ul (4.00-5.40); Red Cell Distribution Width 13 % (10.5-15); White Blood Count 6.1 10^3/ul (3.5-10.8)
[2017-10-25 07:17] LABS: EGFR Non-African American 100.8 (>60)
[2017-10-25] MEDS ORDERED: Bupivacaine 0.5% PF 10 ML VIAL INJ ONE (07:22)
[2017-10-25] MEDS ORDERED: Vancomycin Trough Check NOTE FOLLOW UP ONE (07:30)
[2017-10-25] MEDS: Vancomycin(*) 750 MG in NS 0.9% 250 ML* 250 ML IVPB SCH (07:38)
[2017-10-25] MEDS ORDERED: ceFAZolin 2 GM PREMIX (*) 2 GM/50 ML BAG IVPB ONE (07:45)
[2017-10-25] MEDS ORDERED: Midazolam* 1 MG/ML 2 ML VIAL (2 MG) ONE (07:59)
[2017-10-25] MEDS ORDERED: fentaNYL* 50 MCG/ML 2 ML VIAL (100 MCG VIAL) ONE (07:59)
[2017-10-25] MEDS ORDERED: EPHEDrine (Pressors)* 50 MG/ML VIAL ONE (08:45)
--- NOTE | 2017-10-25 09:38 | OP ---
Operative Report - Blank - Operative Report Date of Operation: 10/25/17 Note: PATIENT: Karen Rider DATE OF : 1930 DATE OF SURGERY: 10/25/2017 SURGEON: Justin Campbell MD MEDICAL RADIATION TECH: CHERRI Kirkpatrick, whos assistance was necessary for positioning, retraction, help with instrumentation, and closure. ANESTHESIOLOGIST: Dr. Castellanos PREOPERATIVE DIAGNOSIS: Left wrist septic arthritis and flexor tenosynovitis POSTOPERATIVE DIAGNOSIS: Left wrist septic arthritis and flexor tenosynovitis OPERATION: 1. Left wrist joint arthrotomy with irrigation and debridement 2. Tenosynovectomy with irrigation and debridement of left wrist flexor tendons ANESTHESIA: LMA IMPLANTS: none TOURNIQUET TIME: Less than 1 hour with a well-padded arm tourniquet at 250mmHg SPECIMENS: Cultures x3 sent to microbiology ESTIMATED BLOOD LOSS: minimal COMPLICATIONS: none STATUS: Stable from the operating room to the recovery room and then readmitted to the medical floor INDICATIONS FOR PROCEDURE: Karen has had worsening left wrist pain, swelling and erythema. This has been worsening, even in the setting of IV antibiotics. She had an MRI which showed a wrist joint effusion as well as fluid along her flexor tendons at the wrist. I discussed this at length with her and her daughter last night. Both operative and continued non-operative treatment alternatives were reviewed. Further, the nature and risks of surgery were reviewed in careful detail, in the office as well as the pre-operative holding area. Our discussions regarding the risks of surgery included, but were not limited to, persistent or worsening infection, wound problems, nerve injury, neuroma, RSD, persistent symptoms, blood clot, failure of the surgery, and even the remote chance of catastrophic complication, including loss of limb. DESCRIPTION OF PROCEDURE: The patient was seen in the preoperative holding unit and informed written consent was obtained. The appropriate extremity was marked. The patient was then brought to the operating room and carefully positioned on the operating room table. Anesthesia was induced. All bony prominences were padded with great care. A well-padded arm tourniquet was placed. A chlorhexidine based pre-scrub was performed followed by a chloraprep prep and drape in standard sterile fashion. A surgical safety pause was then conducted in which we confirmed the appropriate patient, extremity, planned procedure, availability of equipment, indication and administration of prophylactic antibiotics, and DVT prophylaxis in the form of a compression boots. I began with gravity exsanguination of the limb and inflated the tourniquet. I made a 4 cm longitudinal incision at the dorsal wrist between the third and fourth extensor compartments. I took this dissection sharply down to the wrist joint. I incised into the wrist joint and raised periosteal flaps medially and laterally. A large amount of cloudy yellow fluid was encountered in the joint. Two sets of cultures swabs were sent. The wrist joint was then thoroughly irrigated with sterile saline. No more pockets of fluid were encountered. I then made a second incision, 4 cm, longitudinally, over the volar distal forearm at the midline. I used careful dissection to enter the flexor tendon sheath. A large amount of clear yellow fluid was encountered along the flexor tendons. I sent off a set of cultures swabs. There was extensive tenosynovitis. I debrided the tenosynovium. I thoroughly irrigated the flexor tendons in the sheath. I then let down the tourniquet and meticulous hemostasis was obtained. Dorsally , I repaired the extensor retinaculum. Both wounds were then closed in a layered fashion utilizing 3-0 Monocryl and 3-0 nylon. A sterile dressing was then applied. The patient was then awakened from anesthesia and transferred to the recovery room in stable condition. There were no complications. All needle and sponge counts were correct at the end of the case. ATTESTATION: I attest I was present and scrubbed and performed the critical portions of the procedure myself. POSTOPERATIVE PLAN: She will remain on antibiotics as guided by the medical and infectious disease services. Nonweightbearing in the left upper extremity with elevation.
[2017-10-25] MEDS ORDERED: Naloxone* 0.4 MG/ML 1 ML VIAL IV PRN (09:39)
[2017-10-25] MEDS ORDERED: hydrALAZINE IV* 20 MG/ML VIAL ONE (10:11)
[2017-10-25] MEDS: amLODIPine TAB* 5 MG PO SCH (10:23)
[2017-10-25] MEDS: hydrALAZINE IV* 20 MG/ML VIAL IV SLOW PU PRN (10:25)
[2017-10-25] MEDS: NS 0.9% 1000 ML* 1,000 ML IV SCH (12:42)
[2017-10-25] MEDS: cefTRIAXone(*) 1 GM in NS 0.9% 50 ML* 50 ML IVPB SCH ×2 (13:39→15:39)
[2017-10-25] MEDS: Aspirin EC TAB* 81 MG TAB.EC PO SCH (13:46)
[2017-10-25] MEDS: Docusate CAP* 100 MG PO PRN (15:48)
--- NOTE | 2017-10-25 18:30 | PN ---
Subjective Date of Service: 10/25/17 Interval History: Some pain in left hand with finger flexion but at least able to attempt today. No BM since admission. Some confusion noted per Daughter at bedside. Erythema down. Family History: Unchanged from Admission Social History: Unchanged from Admission Past Medical History: Unchanged from Admission Objective Active Medications: Acetaminophen (Tylenol Tab*) 650 mg PO Q4H PRN PRN Reason: FEVER/PAIN Last Admin: 10/25/17 15:49 Dose: 650 mg Amlodipine Besylate (Norvasc Tab*) 5 mg PO DAILY [facility] Last Admin: 10/25/17 10:23 Dose: 5 mg Aspirin (Aspirin Ec Tab*) 81 mg PO DAILY [facility] Last Admin: 10/25/17 13:46 Dose: 81 mg Buspirone HCl (Buspar Tab *) 15 mg PO BEDTIME [facility] Last Admin: 10/24/17 21:45 Dose: 15 mg Docusate Sodium (Colace Cap*) 100 mg PO DAILY PRN PRN Reason: CONSTIPATION Last Admin: 10/25/17 15:48 Dose: 100 mg Heparin Sodium (Porcine) (Heparin Vial(*)) 5,000 units SUBCUT Q8HR [facility] Last Admin: 10/25/17 13:46 Dose: 5,000 units Hydralazine HCl (Apresoline Iv*) 5 mg IV SLOW PU Q6H PRN PRN Reason: BLOOD PRESSURE Last Admin: 10/25/17 10:25 Dose: 5 mg Sodium Chloride (Ns 0.9% 1000 Ml*) 1,000 mls @ 100 mls/hr IV PER RATE [facility] Last Admin: 10/25/17 12:42 Dose: 100 mls/hr Vancomycin HCl 1,000 mg/ (Sodium Chloride) 250 mls @ 166.667 mls/hr IVPB Q12H [facility] Ceftriaxone Sodium 1 gm/ (Sodium Chloride) 50 mls @ 200 mls/hr IVPB Q24H [facility] Last Admin: 10/25/17 15:39 Dose: 200 mls/hr Ondansetron HCl (Zofran Inj*) 4 mg IV Q6H PRN PRN Reason: NAUSEA Pharmacy Consult (Vancomycin Per Pharmacy*) 1 note FOLLOW UP .VANC PER PHARMACY [facility] Pharmacy Profile Note (Vancomycin Trough Check) 1 note FOLLOW UP 0530 ONE Stop: 10/27/17 05:31 Vital Signs - 8 hr 10/25/17 10/25/17 10/25/17 10:30 10:45 11:00 Temperature 99.0 F Pulse Rate 82 81 84 Respiratory 16 16 16 Rate Blood Pressure 168/101 183/105 (mmHg) O2 Sat by Pulse 98 99 99 Oximetry 10/25/17 10/25/17 10/25/17 11:15 11:20 11:30 Temperature 99.0 F Pulse Rate 83 81 81 Respiratory 16 16 16 Rate Blood Pressure 155/88 146/83 139/80 (mmHg) O2 Sat by Pulse 99 99 97 Oximetry 10/25/17 10/25/17 10/25/17 12:00 12:03 13:07 Temperature 98.0 F 98.0 F 98.3 F Pulse Rate 95 95 92 Respiratory 16 16 16 Rate Blood Pressure 118/68 118/68 114/61 (mmHg) O2 Sat by Pulse 94 94 94 Oximetry 10/25/17 10/25/17 14:04 15:58 Temperature 98.3 F 98.3 F Pulse Rate 91 91 Respiratory 14 18 Rate Blood Pressure 104/61 158/56 (mmHg) O2 Sat by Pulse 94 95 Oximetry Oxygen Devices in Use Now: None Appearance: NAD Eyes: No Scleral Icterus, PERRLA Ears/Nose/Mouth/Throat: NL Teeth, Lips, Gums, Mucous Membranes Moist Neck: NL Appearance and Movements; NL JVP, Trachea Midline Respiratory: Symmetrical Chest Expansion and Respiratory Effort, Clear to Auscultation Cardiovascular: NL Sounds; No Murmurs; No JVD, RRR Abdominal: NL Sounds; No Tenderness; No Distention, No Hepatosplenomegaly Extremities: No Edema, No Clubbing, Cyanosis, - - left hand in gauze bandages with proximal finger edema noted. Some tenderness with finger flexion but improving. Result Diagrams: 10/25/17 06:48 10/25/17 06:48 Additional Lab and Data: Laboratory Results - last 24 hr 10/25/17 10/25/17 10/25/17 06:48 06:48 06:48 WBC 6.1 RBC 4.26 Hgb 12.8 Hct 38 MCV 89 MCH 30 MCHC 34 RDW 13 Plt Count 171 MPV 8.7 Neut % (Auto) 63.7 Lymph % (Auto) 19.6 L [place] % (Auto) 15.4 H Eos % (Auto) 0.8 Baso % (Auto) 0.5 Absolute Neuts (auto) 3.9 Absolute Lymphs (auto) 1.2 Absolute Monos (auto) 0.9 H Absolute Eos (auto) 0 Absolute Basos (auto) 0 Absolute Nucleated RBC 0 Nucleated RBC % 0.1 Sodium 136 Potassium 3.4 L Chloride 102 Carbon Dioxide 26 Anion Gap 8 BUN 12 Creatinine 0.57 Est GFR ( Amer) 122.0 Est GFR (Non-Af Amer) 100.8 BUN/Creatinine Ratio 21.1 H Glucose 107 H Calcium 8.9 Vancomycin Trough 7.0 Microbiology and Other Data: Microbiology 10/25/17 09:01 Wound - Other Gram Stain - Final 10/25/17 09:01 Wound - Wrist Left Gram Stain - Final 10/23/17 21:09 Joint Fluid(Synovial) - Wrist Right Gram Stain - Final 10/23/17 21:09 Joint Fluid(Synovial) - Wrist Right Body Fluid Culture - Preliminary No Growth Day 2 10/23/17 19:01 Blood Venous Aerobic Blood Culture - Preliminary No Growth Day 1 10/23/17 19:01 Blood Venous Anaerobic Blood Culture - Preliminary No Growth Day 1 10/23/17 19:06 Blood Venous Aerobic Blood Culture - Preliminary No Growth Day 1 10/23/17 19:06 Blood Venous Anaerobic Blood Culture - Preliminary No Growth Day 1 10/23/17 23:15 Throat Group A Streptococcus Rapid Screen - Final Specimen received for Rapid Strep A Molecular testing 10/23/17 21:09 Wrist Left Skin and Soft Tissue MRSA/MSSA (PCR - Final Mrsa Negative S.aureus Negative Diagnostic Imaging: Patient Name: NORBERTO PATRICIA Medical Record#: [id number] Ordering Physician: Kamran Cabello MD Acct.#: [id number] : 1930 Age: 87 Sex: F Location: EMERGENCY DEPARTMENT Exam Date: 10/23/171941 ADM Status: REG ER Order Information: WRIST LEFT 3+ VWS Accession Number: [id number] CPT: 05061 INDICATION: LEFT wrist pain, redness, and swelling. Clinical concern for potential septic joint. COMPARISON: No relevant prior exams available on the [facility] PACS for comparison. TECHNIQUE: AP, lateral, and oblique views LEFT wrist. REPORT: Extensive soft tissue swelling about the distal forearm, wrist, and visualized hand. No subcutaneous emphysema or conspicuous foreign body evident. Bone density appears decreased throughout. Negative for fracture or dislocation. Marked degenerative arthropathy at the basal joint of the thumb. Degenerative subchondral cysts at the distal radius. No periosteal reaction or osseous erosions evident. IMPRESSION: #. Soft tissue swelling concerning for presence of soft tissue infection given the clinical context. #. No radiographic evidence for osteomyelitis. <Electronically signed by Meir Cheek MD in OV> 10/23/171958 Dictated By: Meir Cheek MD Dictated Date/Time: 10/23/171958 Transcribed Date/Time: 10/23/171955 Patient Name: NORBERTO PATRICIA Medical Record#: [id number] Ordering Physician: Waylon HARLEY Acct.#: [id number] : 1930 Age: 87 Sex: F Location: SURGICAL STAY UNIT Exam Date: 10/24/17832 ADM Status: ADM IN Order Information: MRI WRIST LEFT W/O Accession Number: [id number] CPT: 35068 Indication: LEFT wrist and hand cellulitis. Concern for septic arthritis of the LEFT wrist and hand. IMPRESSION: #. The constellation of findings given the clinical context is consistent with superficial and deep soft tissue infection with septic arthritis at the wrist and septic tenosynovitis involving the superficialis and profundus flexor tendons. #. Polyarticular osteoarthritis. Associated subchondral cystic change and marrow edema most prominent at the distal radius. Presence of arthropathy and associated bony change limits sensitivity and specificity for diagnosis of early osteomyelitis. At this time bone marrow signal changes are most suggestive of spectrum of osteoarthritis. <Electronically signed by Meir Cheek MD in OV> 10/24/17 1352 Dictated By: Meir Cheek MD Dictated Date/Time: 10/24/17 1352 Transcribed Date/Time: 10/24/17 1340 Copy to: Assess/Plan/Problems-Billing Assessment: 87 y/o female PMH HTN, arthritis and psoriasis, p/w 2 days hx worsening Left hand/wrist swelling and redness, who was found to have septic joint now s/p I&D - Patient Problems (1) Septic arthritis of wrist, left Current Visit: Yes Status: Acute Code(s): M00.9 - PYOGENIC ARTHRITIS, UNSPECIFIED SNOMED Code(s): 860649804 Comment: - Continue broad spectrum Abx coverage (vanc, ceftriaxone) with concern for flexor tendoon synovitis - s/p I&D left wrist/hand f/u cultures and Ortho recs PT ordered as patient uses a walker at nights and is nonweight bearing to LUE currently. (2) Arthritis Current Visit: Yes Status: Acute Code(s): M19.90 - UNSPECIFIED OSTEOARTHRITIS, UNSPECIFIED SITE SNOMED Code(s): 8571226 Comment: - Tylenol as needed for pain - Supportive care (3) Cellulitis of hand, left Current Visit: Yes Status: Acute Code(s): L03.114 - CELLULITIS OF LEFT UPPER LIMB SNOMED Code(s): 76431870 Comment: - Contine Vanco and Ceftrixone - f/u Cultures. (4) DVT prophylaxis Current Visit: Yes Status: Acute Code(s): RNL3305 - SNOMED Code(s): 057163742 Comment: - SubQ heparin (5) Full code status Current Visit: Yes Status: Acute Code(s): Z78.9 - OTHER SPECIFIED HEALTH STATUS SNOMED Code(s): 639226191 (6) Hypertension Current Visit: Yes Status: Acute Code(s): I10 - ESSENTIAL (PRIMARY) HYPERTENSION SNOMED Code(s): 13224187 Comment: - Continue home Norvasc and Hydralazine prn (7) Pharyngitis Current Visit: Yes Status: Acute Code(s): J02.9 - ACUTE PHARYNGITIS, UNSPECIFIED SNOMED Code(s): 304449832 Comment: - negative strept throat - Supportive care Status and Disposition: Inpatient. discharge when medically stable.
[2017-10-25] MEDS: Vancomycin(*) 1,000 MG in NS 0.9% 250 ML* 250 ML IVPB SCH (18:34)
[2017-10-25] MEDS: busPIRone TAB* 15 MG PO SCH (22:06)
[2017-10-26] MEDS: NS 0.9% 1000 ML* 1,000 ML IV SCH (00:18)
[2017-10-26] MEDS: Vancomycin(*) 1,000 MG in NS 0.9% 250 ML* 250 ML IVPB SCH ×2 (06:43→17:51)
[2017-10-26] MEDS: Heparin VIAL(*) 5000 UNITS/ML VIAL (FIVE THOUSAND) SUBCUT SCH ×3 (06:45→22:18)
[2017-10-26] MEDS: Aspirin EC TAB* 81 MG TAB.EC PO SCH (08:17)
[2017-10-26] MEDS: amLODIPine TAB* 5 MG PO SCH (08:17)
[2017-10-26] MEDS: Docusate CAP* 100 MG PO PRN (09:14)
--- NOTE | 2017-10-26 10:23 | PN ---
Progress Note - Progress Note Date of Service: 10/26/17 SOAP: Subjective: resting comfortably with continued complaints of left wrist pain. Denies f/s/c Objective: Vital Signs Temp Pulse Resp BP Pulse Ox 98.0 F 78 16 147/62 96 10/26/17 07:59 10/26/17 07:20 10/26/17 08:00 10/26/17 07:20 10/26/17 08:00 Laboratory Last Values WBC 6.1 10^3/ul (3.5-10.8) 10/25/17 06:48 RBC 4.26 10^6/ul (4.00-5.40) 10/25/17 06:48 Hgb 12.8 g/dl (12.0-16.0) 10/25/17 06:48 Hct 38 % (35-47) 10/25/17 06:48 MCV 89 fL (80-97) 10/25/17 06:48 MCH 30 pg (27-31) 10/25/17 06:48 MCHC 34 g/dl (31-36) 10/25/17 06:48 RDW 13 % (10.5-15) 10/25/17 06:48 Plt Count 171 10^3/ul (150-450) 10/25/17 06:48 MPV 8.7 um3 (7.4-10.4) 10/25/17 06:48 Neut % (Auto) 63.7 % (38-83) 10/25/17 06:48 Lymph % (Auto) 19.6 % (25-47) L 10/25/17 06:48 [place] % (Auto) 15.4 % (0-7) H 10/25/17 06:48 Eos % (Auto) 0.8 % (0-6) 10/25/17 06:48 Baso % (Auto) 0.5 % (0-2) 10/25/17 06:48 Absolute Neuts (auto) 3.9 10^3/ul (1.5-7.7) 10/25/17 06:48 Absolute Lymphs (auto) 1.2 10^3/ul (1.0-4.8) 10/25/17 06:48 Absolute Monos (auto) 0.9 10^3/ul (0-0.8) H 10/25/17 06:48 Absolute Eos (auto) 0 10^3/ul (0-0.6) 10/25/17 06:48 Absolute Basos (auto) 0 10^3/ul (0-0.2) 10/25/17 06:48 Absolute Nucleated RBC 0 10^3/ul 10/25/17 06:48 Nucleated RBC % 0.1 10/25/17 06:48 ESR 61 mm/Hr (0-40) H 10/23/17 19:01 INR (Anticoag Therapy) 1.05 (0.77-1.02) H 10/24/17 05:17 APTT 29.3 seconds (26.0-36.3) 10/24/17 05:17 Sodium 136 mmol/L (135-145) 10/25/17 06:48 Potassium 3.4 mmol/L (3.5-5.0) L 10/25/17 06:48 Chloride 102 mmol/L (101-111) 10/25/17 06:48 Carbon Dioxide 26 mmol/L (22-32) 10/25/17 06:48 Anion Gap 8 mmol/L (2-11) 10/25/17 06:48 BUN 12 mg/dL (6-24) 10/25/17 06:48 Creatinine 0.57 mg/dL (0.51-0.95) 10/25/17 06:48 Est GFR ( Amer) 122.0 (>60) 10/25/17 06:48 Est GFR (Non-Af Amer) 100.8 (>60) 10/25/17 06:48 BUN/Creatinine Ratio 21.1 (8-20) H 10/25/17 06:48 Glucose 107 mg/dL (70-100) H 10/25/17 06:48 Lactic Acid 1.0 mmol/L (0.5-2.0) 10/23/17 21:08 Calcium 8.9 mg/dL (8.6-10.3) 10/25/17 06:48 Total Bilirubin 1.20 mg/dL (0.2-1.0) H 10/23/17 19:01 AST 14 U/L (13-39) 10/23/17 19:01 ALT 11 U/L (7-52) 10/23/17 19:01 Alkaline Phosphatase 46 U/L (34-104) 10/23/17 19:01 Troponin I 0.01 ng/mL (<0.04) 10/23/17 19:01 C-Reactive Protein 71.09 mg/L (<8.01) H 10/23/17 19:01 Total Protein 7.0 g/dL (6.4-8.9) 10/23/17 19:01 Albumin 4.0 g/dL (3.2-5.2) 10/23/17 19:01 Globulin 3.0 g/dL (2-4) 10/23/17 19:01 Albumin/Globulin Ratio 1.3 (1-3) 10/23/17 19:01 Urine Color Straw 10/23/17 21:36 Urine Appearance Clear 10/23/17 21:36 Urine pH 6.0 (5-9) 10/23/17 21:36 Ur Specific [place] 1.005 (1.010-1.030) L 10/23/17 21:36 Urine Protein Negative (Negative) 10/23/17 21:36 Urine Ketones Trace (Negative) A 10/23/17 21:36 Urine Blood 1+ (Negative) A 10/23/17 21:36 Urine Nitrate Negative (Negative) 10/23/17 21:36 Urine Bilirubin Negative (Negative) 10/23/17 21:36 Urine Urobilinogen Negative (Negative) 10/23/17 21:36 Ur Leukocyte Esterase Negative (Negative) 10/23/17 21:36 Urine WBC (Auto) Absent (Absent) 10/23/17 21:36 Urine RBC (Auto) Trace(0-2/hpf) (Absent) 10/23/17 21:36 Urine Bacteria Absent (Absent) 10/23/17 21:36 Urine Glucose Negative (Negative) 10/23/17 21:36 Vancomycin Trough 7.0 mcg/mL 10/25/17 06:48 Group A Strep Rapid Negative (Negative) 10/23/17 23:33 incision: c/d; dressing changed PE: full ROM elbow, able to move all fingers, 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
--- NOTE | 2017-10-26 11:32 | PN ---
Progress Note - Progress Note Date of Service: 10/26/17 Note: I saw and evaluated Karen this morning. She is now 1 day from a left wrist and flexor tendon I&D. She makes the pain is a little bit better. I took down her bandage, and her wounds look good. Her swelling and erythema has improved. I re bandaged her. She can flex and extend all of her fingers without pain. She can range the wrist with minimal pain. no pain with active elbow range of motion. White blood count is 6 today. Continue antibiotics. Continue elevation. Try to limit use of the left hand. Justin Campbell MD
[2017-10-26] MEDS ORDERED: Polyethylene Glycol 3350* 17 GM PACKET PO PRN (11:59)
--- NOTE | 2017-10-26 12:34 | PN ---
Subjective Date of Service: 10/26/17 Interval History: slept poorly. No BM cultures negative to date. MOL[facility] paperwork filled out. DNR/DNI afebrile. hand swelling improved, reduced pain. Family History: Unchanged from Admission Social History: Unchanged from Admission Past Medical History: Unchanged from Admission Objective Active Medications: Acetaminophen (Tylenol Tab*) 650 mg PO Q4H PRN PRN Reason: FEVER/PAIN Last Admin: 10/25/17 15:49 Dose: 650 mg Amlodipine Besylate (Norvasc Tab*) 5 mg PO DAILY [facility] Last Admin: 10/26/17 08:17 Dose: 5 mg Aspirin (Aspirin Ec Tab*) 81 mg PO DAILY [facility] Last Admin: 10/26/17 08:17 Dose: 81 mg Buspirone HCl (Buspar Tab *) 15 mg PO BEDTIME [facility] Last Admin: 10/25/17 22:06 Dose: 15 mg Docusate Sodium (Colace Cap*) 100 mg PO DAILY PRN PRN Reason: CONSTIPATION Last Admin: 10/26/17 09:14 Dose: 100 mg Heparin Sodium (Porcine) (Heparin Vial(*)) 5,000 units SUBCUT Q8HR [facility] Last Admin: 10/26/17 06:45 Dose: 5,000 units Hydralazine HCl (Apresoline Iv*) 5 mg IV SLOW PU Q6H PRN PRN Reason: BLOOD PRESSURE Last Admin: 10/25/17 10:25 Dose: 5 mg Vancomycin HCl 1,000 mg/ (Sodium Chloride) 250 mls @ 166.667 mls/hr IVPB Q12H [facility] Last Admin: 10/26/17 06:43 Dose: 166.667 mls/hr Ceftriaxone Sodium 1 gm/ (Sodium Chloride) 50 mls @ 200 mls/hr IVPB Q24H [facility] Last Admin: 10/25/17 15:39 Dose: 200 mls/hr Ondansetron HCl (Zofran Inj*) 4 mg IV Q6H PRN PRN Reason: NAUSEA Pharmacy Consult (Vancomycin Per Pharmacy*) 1 note FOLLOW UP .VANC PER PHARMACY [facility] Pharmacy Profile Note (Vancomycin Trough Check) 1 note FOLLOW UP 0530 ONE Stop: 10/27/17 05:31 Polyethylene Glycol/Electrolytes (Miralax*) 17 gm PO DAILY PRN PRN Reason: CONSTIPATION Vital Signs - 8 hr 10/26/17 10/26/17 10/26/17 07:20 07:59 08:00 Temperature 98.0 F Pulse Rate 78 Respiratory 16 18 Rate Blood Pressure 147/62 (mmHg) O2 Sat by Pulse 96 96 Oximetry 10/26/17 11:27 Temperature 97.9 F Pulse Rate 80 Respiratory 16 Rate Blood Pressure 148/87 (mmHg) O2 Sat by Pulse 97 Oximetry Oxygen Devices in Use Now: None Appearance: NAD, sitting in chair. Ears/Nose/Mouth/Throat: NL Teeth, Lips, Gums, Mucous Membranes Moist Neck: NL Appearance and Movements; NL JVP Respiratory: Symmetrical Chest Expansion and Respiratory Effort, Clear to Auscultation Cardiovascular: NL Sounds; No Murmurs; No JVD, RRR Abdominal: NL Sounds; No Tenderness; No Distention, No Hepatosplenomegaly Extremities: No Edema, - - left hand/wrist in JASON wrap, reduced swelling. Neurological: Alert and Oriented x 3, NL Sensation Nutrition: Taking PO's Result Diagrams: 10/25/17 06:48 10/25/17 06:48 Additional Lab and Data: Microbiology and Other Data: Microbiology 10/25/17 09:01 Wound - Other Anaerobic Culture - Preliminary No Growth Day 1 10/25/17 09:01 Wound - Other Gram Stain - Final 10/25/17 09:01 Wound - Other Wound Culture - Preliminary No Growth Day 1 10/25/17 09:01 Wound - Wrist Left Anaerobic Culture - Preliminary No Growth Day 1 10/25/17 09:01 Wound - Wrist Left Gram Stain - Final 10/25/17 09:01 Wound - Wrist Left Wound Culture - Preliminary No Growth Day 1 10/23/17 21:09 Joint Fluid(Synovial) - Wrist Right Gram Stain - Final 10/23/17 21:09 Joint Fluid(Synovial) - Wrist Right Body Fluid Culture - Preliminary No Growth Day 3 10/23/17 19:01 Blood Venous Aerobic Blood Culture - Preliminary No Growth Day 2 10/23/17 19:01 Blood Venous Anaerobic Blood Culture - Preliminary No Growth Day 2 10/23/17 19:06 Blood Venous Aerobic Blood Culture - Preliminary No Growth Day 2 10/23/17 19:06 Blood Venous Anaerobic Blood Culture - Preliminary No Growth Day 2 10/23/17 23:15 Throat Group A Streptococcus Rapid Screen - Final Specimen received for Rapid Strep A Molecular testing 10/23/17 21:09 Wrist Left Skin and Soft Tissue MRSA/MSSA (PCR - Final Mrsa Negative S.aureus Negative Diagnostic Imaging: Patient Name: NORBERTO PATRICIA Medical Record#: [id number] Ordering Physician: Kamran Cabello MD Acct.#: [id number] : 1930 Age: 87 Sex: F Location: EMERGENCY DEPARTMENT Exam Date: 10/23/171941 ADM Status: REG ER Order Information: WRIST LEFT 3+ VWS Accession Number: [id number] CPT: 12535 INDICATION: LEFT wrist pain, redness, and swelling. Clinical concern for potential septic joint. COMPARISON: No relevant prior exams available on the [facility] PACS for comparison. TECHNIQUE: AP, lateral, and oblique views LEFT wrist. REPORT: Extensive soft tissue swelling about the distal forearm, wrist, and visualized hand. No subcutaneous emphysema or conspicuous foreign body evident. Bone density appears decreased throughout. Negative for fracture or dislocation. Marked degenerative arthropathy at the basal joint of the thumb. Degenerative subchondral cysts at the distal radius. No periosteal reaction or osseous erosions evident. IMPRESSION: #. Soft tissue swelling concerning for presence of soft tissue infection given the clinical context. #. No radiographic evidence for osteomyelitis. <Electronically signed by Meir Cheek MD in OV> 10/23/171958 Dictated By: Meir Cheek MD Dictated Date/Time: 10/23/171958 Transcribed Date/Time: 10/23/171955 Patient Name: NORBERTO PATRICIA Medical Record#: [id number] Ordering Physician: Waylon HARLEY Acct.#: [id number] : 1930 Age: 87 Sex: F Location: SURGICAL STAY UNIT Exam Date: 10/24/1733 ADM Status: ADM IN Order Information: MRI WRIST LEFT W/O Accession Number: [id number] CPT: 54594 Indication: LEFT wrist and hand cellulitis. Concern for septic arthritis of the LEFT wrist and hand. IMPRESSION: #. The constellation of findings given the clinical context is consistent with superficial and deep soft tissue infection with septic arthritis at the wrist and septic tenosynovitis involving the superficialis and profundus flexor tendons. #. Polyarticular osteoarthritis. Associated subchondral cystic change and marrow edema most prominent at the distal radius. Presence of arthropathy and associated bony change limits sensitivity and specificity for diagnosis of early osteomyelitis. At this time bone marrow signal changes are most suggestive of spectrum of osteoarthritis. <Electronically signed by Meir Cheek MD in OV> 10/24/17 1352 Dictated By: Meir Cheek MD Dictated Date/Time: 10/24/17 1352 Transcribed Date/Time: 10/24/17 1340 Copy to: Assess/Plan/Problems-Billing Assessment: 87 y/o female PMH HTN, arthritis and psoriasis, p/w 2 days hx worsening Left hand/wrist swelling and redness, who was found to have septic joint now s/p I&D - Patient Problems (1) Septic arthritis of wrist, left Current Visit: Yes Status: Acute Code(s): M00.9 - PYOGENIC ARTHRITIS, UNSPECIFIED SNOMED Code(s): 308148647 Comment: - Continue broad spectrum Abx coverage (vanc, ceftriaxone) with concern for flexor tendoon synovitis. Cultures have been negative but did get Abx prior to these cultures. Will get ID consult for tomorrow for home going recs. - s/p I&D left wrist/hand f/u cultures and Ortho recs PT ordered as patient uses a walker at nights and is nonweight bearing to LUE currently. (2) Arthritis Current Visit: Yes Status: Acute Code(s): M19.90 - UNSPECIFIED OSTEOARTHRITIS, UNSPECIFIED SITE SNOMED Code(s): 4108042 Comment: - Tylenol as needed for pain - Supportive care (3) Cellulitis of hand, left Current Visit: Yes Status: Acute Code(s): L03.114 - CELLULITIS OF LEFT UPPER LIMB SNOMED Code(s): 23865062 Comment: - Contine Vanco and Ceftrixone - f/u Cultures. NGTD (4) DVT prophylaxis Current Visit: Yes Status: Acute Code(s): RDR1280 - SNOMED Code(s): 335553444 Comment: - SubQ heparin (5) Full code status Current Visit: Yes Status: Acute Code(s): Z78.9 - OTHER SPECIFIED HEALTH STATUS SNOMED Code(s): 265182715 (6) Hypertension Current Visit: Yes Status: Acute Code(s): I10 - ESSENTIAL (PRIMARY) HYPERTENSION SNOMED Code(s): 38303753 Comment: - Continue home Norvasc and Hydralazine prn (7) Pharyngitis Current Visit: Yes Status: Acute Code(s): J02.9 - ACUTE PHARYNGITIS, UNSPECIFIED SNOMED Code(s): 065850633 Comment: - negative strept throat - Supportive care Status and Disposition: Inpatient. discharge when medically stable. Likely SNF
[2017-10-26] MEDS: cefTRIAXone(*) 1 GM in NS 0.9% 50 ML* 50 ML IVPB SCH (15:58)
[2017-10-26] MEDS: busPIRone TAB* 15 MG PO SCH (22:18)
[2017-10-27] MEDS ORDERED: Haloperidol TAB* 2 MG PO ONE (02:18)
--- NOTE | 2017-10-27 02:18 | PN ---
Progress Note - Progress Note Date of Service: 10/27/17 Note: CAT response CAT was called for unresponsiveness. Upon arrival, Mrs Rider was supine in bed, not opening her eyes or answering questions. She was breathing spontaneously. Pupils were equal and responsive. Upon head maneuvers, her gaze was focused but avoidant. Vitals were stable. Moderate sternal rub resulted in her promptly sitting up in bed screaming incoherently and insulting me. After a couple of minutes she again refused to respond and a less vigorous sternal rub yielded equally good results. Glucose was 111. ECG is NSR, no ischemia. CBC/BMP/lactic ordered, pending. Neurologically grossly non-focal, moves extremities x4. Assessment: plan acute delirium : haloperidol 2mg PO x1 : neurochecks Q2H
[2017-10-27 02:35] LABS: Hematocrit 38 % (35-47); Hemoglobin 12.8 g/dl (12.0-16.0); Mean Corpuscular HGB Conc 34 g/dl (31-36); Mean Corpuscular Hemoglobin 30 pg (27-31); Mean Corpuscular Volume 90 fL (80-97); Mean Platelet Volume 9.1 um3 (7.4-10.4); Platelet Count 217 10^3/ul (150-450); Red Blood Count 4.23 10^6/ul (4.00-5.40); Red Cell Distribution Width 14 % (10.5-15); White Blood Count 7.4 10^3/ul (3.5-10.8)
[2017-10-27 03:02] LABS: EGFR Non-African American 96.9 (>60)
[2017-10-27] MEDS ORDERED: Vancomycin Trough Check NOTE FOLLOW UP ONE (05:30)
[2017-10-27] MEDS: Heparin VIAL(*) 5000 UNITS/ML VIAL (FIVE THOUSAND) SUBCUT SCH ×3 (06:05→21:42)
[2017-10-27 06:38] LABS: ABS Basophils 0 10^3/ul (0-0.2); ABS Eosinophils 0.1 10^3/ul (0-0.6); ABS Lymphocytes 1.2 10^3/ul (1.0-4.8); ABS Monocytes 0.8 10^3/ul (0-0.8); ABS Neutrophils 4.1 10^3/ul (1.5-7.7); ABS Nucleated RBC 0 10^3/ul; Eosinophil % 1.5 % (0-6); Hematocrit 37 % (35-47); Hemoglobin 12.5 g/dl (12.0-16.0); Lymphocyte % 18.9 % (25-47); Mean Corpuscular HGB Conc 34 g/dl (31-36); Mean Corpuscular Hemoglobin 30 pg (27-31); Mean Corpuscular Volume 89 fL (80-97); Mean Platelet Volume 9.2 um3 (7.4-10.4); Nucleated Red Blood Cells % 0.1; Platelet Count 210 10^3/ul (150-450); Red Blood Count 4.14 10^6/ul (4.00-5.40); Red Cell Distribution Width 14 % (10.5-15); White Blood Count 6.2 10^3/ul (3.5-10.8)
[2017-10-27 06:54] LABS: EGFR Non-African American 114.6 (>60)
[2017-10-27] MEDS: Vancomycin(*) 1,000 MG in NS 0.9% 250 ML* 250 ML IVPB SCH ×2 (07:41→14:51)
--- NOTE | 2017-10-27 09:01 | PN ---
Progress Note - Progress Note Date of Service: 10/27/17 SOAP: Subjective: []Patient seen OOB in chair. Denies pain of left wrist, feels swelling has improved. She is feeling well with no feeling of fever or chills, T max 99.0 overnight. Patient reports confusion yesterday which she feels is much improved today. Denies CP, SOB, dizziness. Objective: []General: Well appearing, NAD. Alert and oriented to person, place, time. Unaware when her surgery took place, but aware it occurred. LUE: Dressing changed. Incisions CDI without discharge. Mild erythema hand and forearm. Moderate edema of hand, mild edema of forearm. 2+ radial pulse. Able to flex and extend wrist and all 5 digits without pain. Sensation intact to light touch throughout LUE. Assessment: [] SP Left wrist joint arthrotomy with irrigation and debridement and tenosynovectomy with irrigation and debridement of left wrist flexor tendons left wrist septic arthritis and flexor tenosynovitis Plan: []NWB LUE, limit use of LUE Elevate wrist Daily dressing change Seen by ID today. Will continue IV Vanco, likely for 4 weeks. Vital Signs Temp 98.5 F 10/27/17 02:54 Pulse 85 10/27/17 02:54 Resp 16 10/27/17 02:54 BP 152/78 10/27/17 02:54 Pulse Ox 97 10/27/17 02:54 Intake & Output 10/26/17 10/27/17 10/27/17 18:59 06:59 18:59 Intake Total 2366 100 Output Total 1472049 Balance 891 -1950 Intake: IV Fluids 1316 ABX - CEFTRIAXONE 55 ABX - VANCOMYCIN 260 NS (0.9%) 1001 Oral 1050 100 Output: Urine 1475 2049 Other: Estimated Void Medium Estimated Stool Amount Small Laboratory Last Values WBC 6.2 10^3/ul (3.5-10.8) 10/27/17 06:13 RBC 4.14 10^6/ul (4.00-5.40) 10/27/17 06:13 Hgb 12.5 g/dl (12.0-16.0) 10/27/17 06:13 Hct 37 % (35-47) 10/27/17 06:13 MCV 89 fL (80-97) 10/27/17 06:13 MCH 30 pg (27-31) 10/27/17 06:13 MCHC 34 g/dl (31-36) 10/27/17 06:13 RDW 14 % (10.5-15) 10/27/17 06:13 Plt Count 210 10^3/ul (150-450) 10/27/17 06:13 MPV 9.2 um3 (7.4-10.4) 10/27/17 06:13 Neut % (Auto) 66.7 % (38-83) 10/27/17 06:13 Lymph % (Auto) 18.9 % (25-47) L 10/27/17 06:13 [place] % (Auto) 12.3 % (0-7) H 10/27/17 06:13 Eos % (Auto) 1.5 % (0-6) 10/27/17 06:13 Baso % (Auto) 0.6 % (0-2) 10/27/17 06:13 Absolute Neuts (auto) 4.1 10^3/ul (1.5-7.7) 10/27/17 06:13 Absolute Lymphs (auto) 1.2 10^3/ul (1.0-4.8) 10/27/17 06:13 Absolute Monos (auto) 0.8 10^3/ul (0-0.8) 10/27/17 06:13 Absolute Eos (auto) 0.1 10^3/ul (0-0.6) 10/27/17 06:13 Absolute Basos (auto) 0 10^3/ul (0-0.2) 10/27/17 06:13 Absolute Nucleated RBC 0 10^3/ul 10/27/17 06:13 Nucleated RBC % 0.1 10/27/17 06:13 ESR 61 mm/Hr (0-40) H 10/23/17 19:01 INR (Anticoag Therapy) 1.05 (0.77-1.02) H 10/24/17 05:17 APTT 29.3 seconds (26.0-36.3) 10/24/17 05:17 Sodium 136 mmol/L (135-145) 10/27/17 06:13 Potassium 3.4 mmol/L (3.5-5.0) L 10/27/17 06:13 Chloride 101 mmol/L (101-111) 10/27/17 06:13 Carbon Dioxide 27 mmol/L (22-32) 10/27/17 06:13 Anion Gap 8 mmol/L (2-11) 10/27/17 06:13 BUN 12 mg/dL (6-24) 10/27/17 06:13 Creatinine 0.51 mg/dL (0.51-0.95) 10/27/17 06:13 Est GFR ( Amer) 138.7 (>60) 10/27/17 06:13 Est GFR (Non-Af Amer) 114.6 (>60) 10/27/17 06:13 BUN/Creatinine Ratio 23.5 (8-20) H 10/27/17 06:13 Glucose 93 mg/dL (70-100) 10/27/17 06:13 POC Glucose (mg/dL) 111 mg/dL (70-100) H 10/27/17 01:58 Lactic Acid 1.0 mmol/L (0.5-2.0) 10/27/17 02:14 Calcium 8.9 mg/dL (8.6-10.3) 10/27/17 06:13 Total Bilirubin 1.20 mg/dL (0.2-1.0) H 10/23/17 19:01 AST 14 U/L (13-39) 10/23/17 19:01 ALT 11 U/L (7-52) 10/23/17 19:01 Alkaline Phosphatase 46 U/L (34-104) 10/23/17 19:01 Troponin I 0.01 ng/mL (<0.04) 10/23/17 19:01 C-Reactive Protein 55.82 mg/L (<8.01) H 10/27/17 06:13 Total Protein 7.0 g/dL (6.4-8.9) 10/23/17 19:01 Albumin 4.0 g/dL (3.2-5.2) 10/23/17 19:01 Globulin 3.0 g/dL (2-4) 10/23/17 19:01 Albumin/Globulin Ratio 1.3 (1-3) 10/23/17 19:01 Urine Color Straw 10/23/17 21:36 Urine Appearance Clear 10/23/17 21:36 Urine pH 6.0 (5-9) 10/23/17 21:36 Ur Specific Miranda 1.005 (1.010-1.030) L 10/23/17 21:36 Urine Protein Negative (Negative) 10/23/17 21:36 Urine Ketones Trace (Negative) A 10/23/17 21:36 Urine Blood 1+ (Negative) A 10/23/17 21:36 Urine Nitrate Negative (Negative) 10/23/17 21:36 Urine Bilirubin Negative (Negative) 10/23/17 21:36 Urine Urobilinogen Negative (Negative) 10/23/17 21:36 Ur Leukocyte Esterase Negative (Negative) 10/23/17 21:36 Urine WBC (Auto) Absent (Absent) 10/23/17 21:36 Urine RBC (Auto) Trace(0-2/hpf) (Absent) 10/23/17 21:36 Urine Bacteria Absent (Absent) 10/23/17 21:36 Urine Glucose Negative (Negative) 10/23/17 21:36 Vancomycin Trough 10.7 mcg/mL 10/27/17 06:13 Group A Strep Rapid Negative (Negative) 10/23/17 23:33
--- NOTE | 2017-10-27 10:03 | PN ---
Subjective Date of Service: 10/27/17 Interval History: took for bandage last night and was trying to get out of bed. Went unresponsive while RN was reapplying the bandage and CAT called. Sternal rub and patient was wide awake (cycled x2). got po haldol 2mg. NSR EKG. Vitals stable. Afebrile. More confused this morning. Family History: Unchanged from Admission Social History: Unchanged from Admission Past Medical History: Unchanged from Admission Objective Active Medications: Acetaminophen (Tylenol Tab*) 650 mg PO Q4H PRN PRN Reason: FEVER/PAIN Last Admin: 10/25/17 15:49 Dose: 650 mg Amlodipine Besylate (Norvasc Tab*) 5 mg PO DAILY [facility] Last Admin: 10/26/17 08:17 Dose: 5 mg Aspirin (Aspirin Ec Tab*) 81 mg PO DAILY [facility] Last Admin: 10/26/17 08:17 Dose: 81 mg Buspirone HCl (Buspar Tab *) 15 mg PO BEDTIME [facility] Last Admin: 10/26/17 22:18 Dose: 15 mg Docusate Sodium (Colace Cap*) 100 mg PO DAILY PRN PRN Reason: CONSTIPATION Last Admin: 10/26/17 09:14 Dose: 100 mg Heparin Sodium (Porcine) (Heparin Vial(*)) 5,000 units SUBCUT Q8HR [facility] Last Admin: 10/27/17 06:05 Dose: 5,000 units Hydralazine HCl (Apresoline Iv*) 5 mg IV SLOW PU Q6H PRN PRN Reason: BLOOD PRESSURE Last Admin: 10/25/17 10:25 Dose: 5 mg Vancomycin HCl 1,000 mg/ (Sodium Chloride) 250 mls @ 166.667 mls/hr IVPB Q12H [facility] Last Admin: 10/27/17 07:41 Dose: 166.667 mls/hr Ondansetron HCl (Zofran Inj*) 4 mg IV Q6H PRN PRN Reason: NAUSEA Pharmacy Consult (Vancomycin Per Pharmacy*) 1 note FOLLOW UP .VANC PER PHARMACY [facility] Polyethylene Glycol/Electrolytes (Miralax*) 17 gm PO DAILY PRN PRN Reason: CONSTIPATION Last Admin: 10/26/17 12:49 Dose: 17 gm Vital Signs - 8 hr 10/27/17 10/27/17 02:08 02:54 Temperature 98.5 F Pulse Rate 92 85 Respiratory 17 16 Rate Blood Pressure 161/76 152/78 (mmHg) O2 Sat by Pulse 95 97 Oximetry Oxygen Devices in Use Now: None, Nasal Cannula Appearance: NAD Eyes: No Scleral Icterus, PERRLA Ears/Nose/Mouth/Throat: NL Teeth, Lips, Gums Neck: NL Appearance and Movements; NL JVP, Trachea Midline Respiratory: Symmetrical Chest Expansion and Respiratory Effort, Clear to Auscultation Cardiovascular: NL Sounds; No Murmurs; No JVD, RRR Abdominal: NL Sounds; No Tenderness; No Distention, No Hepatosplenomegaly Extremities: No Edema, No Clubbing, Cyanosis, - - minimal swelling on exposed left wrist, nontender. Neurological: - - Oriented to name and [place] only. not hospital, president, year or reason for admission. Can't tell me daughter's name. Nutrition: Taking PO's Result Diagrams: 10/27/17 06:13 10/27/17 06:13 Additional Lab and Data: Laboratory Results - last 24 hr 10/27/17 10/27/17 10/27/17 01:58 02:14 02:14 WBC RBC Hgb Hct MCV MCH MCHC RDW Plt Count MPV Neut % (Auto) Lymph % (Auto) [place] % (Auto) Eos % (Auto) Baso % (Auto) Absolute Neuts (auto) Absolute Lymphs (auto) Absolute Monos (auto) Absolute Eos (auto) Absolute Basos (auto) Absolute Nucleated RBC Nucleated RBC % Sodium 138 Potassium 3.4 L Chloride 101 Carbon Dioxide 26 Anion Gap 11 BUN 12 Creatinine 0.59 Est GFR ( Amer) 117.2 Est GFR (Non-Af Amer) 96.9 BUN/Creatinine Ratio 20.3 H Glucose 97 POC Glucose (mg/dL) 111 H Lactic Acid 1.0 Calcium 8.9 C-Reactive Protein Vancomycin Trough 10/27/17 10/27/17 10/27/17 02:14 06:13 06:13 WBC 7.4 RBC 4.23 Hgb 12.8 Hct 38 MCV 90 MCH 30 MCHC 34 RDW 14 Plt Count 217 MPV 9.1 Neut % (Auto) Lymph % (Auto) [place] % (Auto) Eos % (Auto) Baso % (Auto) Absolute Neuts (auto) Absolute Lymphs (auto) Absolute Monos (auto) Absolute Eos (auto) Absolute Basos (auto) Absolute Nucleated RBC Nucleated RBC % Sodium 136 Potassium 3.4 L Chloride 101 Carbon Dioxide 27 Anion Gap 8 BUN 12 Creatinine 0.51 Est GFR ( Amer) 138.7 Est GFR (Non-Af Amer) 114.6 BUN/Creatinine Ratio 23.5 H Glucose 93 POC Glucose (mg/dL) Lactic Acid Calcium 8.9 C-Reactive Protein 55.82 H Vancomycin Trough 10.7 10/27/17 06:13 WBC 6.2 RBC 4.14 Hgb 12.5 Hct 37 MCV 89 MCH 30 MCHC 34 RDW 14 Plt Count 210 MPV 9.2 Neut % (Auto) 66.7 Lymph % (Auto) 18.9 L [place] % (Auto) 12.3 H Eos % (Auto) 1.5 Baso % (Auto) 0.6 Absolute Neuts (auto) 4.1 Absolute Lymphs (auto) 1.2 Absolute Monos (auto) 0.8 Absolute Eos (auto) 0.1 Absolute Basos (auto) 0 Absolute Nucleated RBC 0 Nucleated RBC % 0.1 Sodium Potassium Chloride Carbon Dioxide Anion Gap BUN Creatinine Est GFR ( Amer) Est GFR (Non-Af Amer) BUN/Creatinine Ratio Glucose POC Glucose (mg/dL) Lactic Acid Calcium C-Reactive Protein Vancomycin Trough Microbiology and Other Data: Microbiology 10/23/17 21:09 Joint Fluid(Synovial) - Wrist Right Gram Stain - Final 10/23/17 21:09 Joint Fluid(Synovial) - Wrist Right Body Fluid Culture - Final No Growth Day 4 10/23/17 19:01 Blood Venous Aerobic Blood Culture - Preliminary No Growth Day 3 10/23/17 19:01 Blood Venous Anaerobic Blood Culture - Preliminary No Growth Day 3 10/23/17 19:06 Blood Venous Aerobic Blood Culture - Preliminary No Growth Day 3 10/23/17 19:06 Blood Venous Anaerobic Blood Culture - Preliminary No Growth Day 3 10/25/17 09:01 Wound - Other Anaerobic Culture - Preliminary No Growth Day 1 10/25/17 09:01 Wound - Other Gram Stain - Final 10/25/17 09:01 Wound - Other Wound Culture - Preliminary No Growth Day 1 10/25/17 09:01 Wound - Wrist Left Anaerobic Culture - Preliminary No Growth Day 1 10/25/17 09:01 Wound - Wrist Left Gram Stain - Final 10/25/17 09:01 Wound - Wrist Left Wound Culture - Preliminary No Growth Day 1 10/23/17 23:15 Throat Group A Streptococcus Rapid Screen - Final Specimen received for Rapid Strep A Molecular testing 10/23/17 21:09 Wrist Left Skin and Soft Tissue MRSA/MSSA (PCR - Final Mrsa Negative S.aureus Negative Diagnostic Imaging: Patient Name: NORBERTO PATRICIA Medical Record#: [id number] Ordering Physician: Kamran Cabello MD Acct.#: [id number] : 1930 Age: 87 Sex: F Location: EMERGENCY DEPARTMENT Exam Date: 10/23/171941 ADM Status: REG ER Order Information: WRIST LEFT 3+ VWS Accession Number: [id number] CPT: 84963 INDICATION: LEFT wrist pain, redness, and swelling. Clinical concern for potential septic joint. COMPARISON: No relevant prior exams available on the [facility] PACS for comparison. TECHNIQUE: AP, lateral, and oblique views LEFT wrist. REPORT: Extensive soft tissue swelling about the distal forearm, wrist, and visualized hand. No subcutaneous emphysema or conspicuous foreign body evident. Bone density appears decreased throughout. Negative for fracture or dislocation. Marked degenerative arthropathy at the basal joint of the thumb. Degenerative subchondral cysts at the distal radius. No periosteal reaction or osseous erosions evident. IMPRESSION: #. Soft tissue swelling concerning for presence of soft tissue infection given the clinical context. #. No radiographic evidence for osteomyelitis. <Electronically signed by Meir Cheek MD in OV> 10/23/171958 Dictated By: Meir Cheek MD Dictated Date/Time: 10/23/171958 Transcribed Date/Time: 10/23/171955 Patient Name: NORBERTO PATRICIA Medical Record#: [id number] Ordering Physician: Waylon HARLEY Acct.#: [id number] : 1930 Age: 87 Sex: F Location: SURGICAL STAY UNIT Exam Date: 10/24/1733 ADM Status: ADM IN Order Information: MRI WRIST LEFT W/O Accession Number: [id number] CPT: 34012 Indication: LEFT wrist and hand cellulitis. Concern for septic arthritis of the LEFT wrist and hand. IMPRESSION: #. The constellation of findings given the clinical context is consistent with superficial and deep soft tissue infection with septic arthritis at the wrist and septic tenosynovitis involving the superficialis and profundus flexor tendons. #. Polyarticular osteoarthritis. Associated subchondral cystic change and marrow edema most prominent at the distal radius. Presence of arthropathy and associated bony change limits sensitivity and specificity for diagnosis of early osteomyelitis. At this time bone marrow signal changes are most suggestive of spectrum of osteoarthritis. <Electronically signed by Meir Cheek MD in OV> 10/24/17 1352 Dictated By: Meir Cheek MD Dictated Date/Time: 10/24/17 1352 Transcribed Date/Time: 10/24/17 1340 Copy to: Assess/Plan/Problems-Billing Assessment: 87 y/o female PMH HTN, arthritis and psoriasis, p/w 2 days hx worsening Left hand/wrist swelling and redness, who was found to have septic joint now s/p I& D. Cultures negative (got vancomycin prior to aspiration). Planned 4 weeks vancomycin. ZACKARY. - Patient Problems (1) Encephalopathy Current Visit: Yes Status: Acute Code(s): G93.40 - ENCEPHALOPATHY, UNSPECIFIED SNOMED Code(s): 35699081 Comment: Likely delerium in setting of very poor sleep, infection supportive care. normalize sleep patterns. s/p haldol po but avoid if can. (2) Septic arthritis of wrist, left Current Visit: Yes Status: Acute Code(s): M00.9 - PYOGENIC ARTHRITIS, UNSPECIFIED SNOMED Code(s): 383614764 Comment: - Continue vancomycin. Planned 4 weeks per ID who has stopped ceftriaxone. PICC line ordered. CRP downtrending. ith concern for flexor tendoon synovitis. Cultures have been negative but did get vancomycin prior to initial wrist aspirate and later I&D. - s/p I&D left wrist/hand f/u cultures and Ortho recs Continue PT with plan for ZACKARY. (3) Arthritis Current Visit: Yes Status: Acute Code(s): M19.90 - UNSPECIFIED OSTEOARTHRITIS, UNSPECIFIED SITE SNOMED Code(s): 3415109 Comment: - Tylenol as needed for pain - Supportive care (4) Cellulitis of hand, left Current Visit: Yes Status: Acute Code(s): L03.114 - CELLULITIS OF LEFT UPPER LIMB SNOMED Code(s): 87571403 Comment: - Contine Vanco - f/u Cultures. NGTD (5) DVT prophylaxis Current Visit: Yes Status: Acute Code(s): KOI3904 - SNOMED Code(s): 831501158 Comment: - SubQ heparin (6) Hypertension Current Visit: Yes Status: Acute Code(s): I10 - ESSENTIAL (PRIMARY) HYPERTENSION SNOMED Code(s): 07930976 Comment: - Increase Norvasc from 5 to 10mg. SBP 150-160s Hydralazine prn (7) Pharyngitis Current Visit: Yes Status: Acute Code(s): J02.9 - ACUTE PHARYNGITIS, UNSPECIFIED SNOMED Code(s): 332529715 Comment: - negative strept throat - Supportive care (8) DNR (do not resuscitate) Current Visit: Yes Status: Acute Status and Disposition: Inpatient. needs PICC and ZACKARY placement.
[2017-10-27] MEDS: Aspirin EC TAB* 81 MG TAB.EC PO SCH (10:04)
[2017-10-27] MEDS: amLODIPine TAB* 5 MG PO SCH (10:04)
--- NOTE | 2017-10-27 11:21 | CONS ---
CONSULTATION REPORT: DATE OF CONSULT: 10/27/17 REQUESTING PROVIDER: CHERRI Fierro CONSULTING SERVICE: Infectious Disease. REASON FOR CONSULT: Wrist infection. IMPRESSION: 1. Septic left wrist with septic flexor tenosynovitis, status post open incision and debridement on 10/25/17. Gram stain showed no organisms, cultures are negative. PCR for Staphylococcus aureus is negative. PCR did show 4+ neutrophils, but no organisms. She had a dose of vancomycin the night before the procedure and a dose of ceftriaxone the time of the procedure. I think this was most likely a gram-positive infection. The patient differential diagnosis includes an inflammatory arthropathy like gout or pseudogout. 2. Encephalopathy. 3. Psoriasis. RECOMMENDATION: Continue vancomycin, goal trough 15 to 20, we will give her 4 weeks of that antibiotic. We will stop her ceftriaxone. She will need a weekly CBC, CMP, CRP, and vancomycin trough. HISTORY OF PRESENT ILLNESS: An 87-year-old woman with left wrist infection. She was brought in by her daughter to Urgent Care and then transferred here. She cannot provide much of the history given her baseline mental status and some encephalopathy, which was obtained subsequently from reviewing the medical records. At home, she had been having few days of worsening left wrist pain, swelling, and decreased range of motion with temp around 100 degrees. Her daughter came in from [place], found her to be quite inflamed and brought her to Urgent Care, was transferred her. She had a white count of 7, CRP of 70. She was started on vancomycin, the next day started on ceftriaxone at the time she was taken to the operating room on 10/25/17 for incision and debridement, which she tolerated well. She has improved range of motion of her fingers and her wrist. She does not have other joints that are bothering her. PAST MEDICAL HISTORY: 1. Psoriasis. 2. Osteoarthritis. 3. Anxiety. 4. TIA. 5. Status post carpal tunnel repair. 6. Status post right ankle surgery. MEDICATIONS: 1. Tylenol. 2. Amlodipine. 3. Aspirin. 4. BuSpar. 5. Docusate. 6. Hydralazine as needed. 7. Vancomycin 1 g every 12 hours. 8. Ceftriaxone 1 g a day. ALLERGIES: SULFA, TETRACYCLINE. FAMILY HISTORY: Mother had asthma. Father of old age as far as she knows ; she is unsure of the ages. SOCIAL HISTORY: She lives at [facility] by herself. She has no travel or sick contacts. She is a nonsmoker. REVIEW OF SYSTEMS: All negative to 14-point review of systems except as noted above in the history of present illness. PHYSICAL EXAM: Vital Signs: Temperature is 37, heart rate 85, respiratory rate 16, blood pressure 150/70, oxygen saturation 97% on 2 L. In general, she is awake, not in distress. Neurologic: She is oriented x2, follows all commands, moves all extremities. HEENT: There is no conjunctival hemorrhage. Oropharynx without lesions. Neck: Supple without mass. Heart: Regular rate and rhythm without murmurs, rubs, or gallops. Lungs: Clear to auscultation bilaterally. Abdomen: Soft, nontender, and nondistended. Bowel sounds present. Skin: There are no rashes or splinter hemorrhages. Musculoskeletal: There is no spine tenderness to palpation. There is left wrist diffuse edema , mild erythema, and warmth with decreased finger flexion and extension, though apparently improving. Incisions, dorsal and volar hand, are intact. LABORATORY DATA: Creatinine 0.5. CRP 55. White blood cell count 6, hemoglobin 12, platelets 210. Urinalysis shows blood. Please see impressions and recommendations outlined above. Thanks for asking me to see Ms. Rider in consultation. [id number]/[facility] #: [id number] CLIVE
[2017-10-27] MEDS: busPIRone TAB* 15 MG PO SCH (21:40)
[2017-10-28] MEDS: Vancomycin(*) 1,000 MG in NS 0.9% 250 ML* 250 ML IVPB SCH ×2 (02:05→13:34)
[2017-10-28] MEDS: hydrALAZINE IV* 20 MG/ML VIAL IV SLOW PU PRN (02:13)
[2017-10-28] MEDS: Heparin VIAL(*) 5000 UNITS/ML VIAL (FIVE THOUSAND) SUBCUT SCH ×3 (06:27→21:41)
--- NOTE | 2017-10-28 07:22 | PN ---
Progress Note - Progress Note Date of Service: 10/28/17 SOAP: Subjective: [] Patient seen at bedside. She is feeling well without pain of her wrist. Denies CP, SOB, dizziness, confusion. She had a CAT call yesterday and was awakened by sternal rub. Objective: []General: Alert, well appearing, NAD, carrying on appropriate conversation LUE: Left hand edema is decreased from yesterday. No erythema. Dressing changed , incisions are CDI without surrounding erythema and without discharge. Moves all digits well, sensation intact to light touch throughout LUE. Radial pulse 2+ , capillary refill less than two seconds distally. Assessment: [] SP Left wrist joint arthrotomy with irrigation and debridement and tenosynovectomy with irrigation and debridement of left wrist flexor tendons left wrist septic arthritis and flexor tenosynovitis Plan: []NWB LUE, limit use of LUE Elevate wrist Daily dressing change PICC placed yesterday DC when medically ready Follow up with Dr Campbell 10 days post op, sooner with any concerns. Vital Signs Temp 98.0 F 10/27/17 19:20 Pulse 87 10/27/17 19:20 Resp 16 10/27/17 20:00 BP 170/63 10/27/17 19:20 Pulse Ox 97 10/27/17 19:20 Intake & Output 10/27/17 10/28/17 10/28/17 18:59 06:59 18:59 Intake Total 790 540 Output Total 400 350 Balance 390 190 Intake: IV Fluids 250 ABX - VANCOMYCIN 250 Oral 540 540 Output: Urine 400 350 Other: Estimated Void Medium # Bowel Movements 0 Laboratory Last Values WBC 6.2 10^3/ul (3.5-10.8) 10/27/17 06:13 RBC 4.14 10^6/ul (4.00-5.40) 10/27/17 06:13 Hgb 12.5 g/dl (12.0-16.0) 10/27/17 06:13 Hct 37 % (35-47) 10/27/17 06:13 MCV 89 fL (80-97) 10/27/17 06:13 MCH 30 pg (27-31) 10/27/17 06:13 MCHC 34 g/dl (31-36) 10/27/17 06:13 RDW 14 % (10.5-15) 10/27/17 06:13 Plt Count 210 10^3/ul (150-450) 10/27/17 06:13 MPV 9.2 um3 (7.4-10.4) 10/27/17 06:13 Neut % (Auto) 66.7 % (38-83) 10/27/17 06:13 Lymph % (Auto) 18.9 % (25-47) L 10/27/17 06:13 [place] % (Auto) 12.3 % (0-7) H 10/27/17 06:13 Eos % (Auto) 1.5 % (0-6) 10/27/17 06:13 Baso % (Auto) 0.6 % (0-2) 10/27/17 06:13 Absolute Neuts (auto) 4.1 10^3/ul (1.5-7.7) 10/27/17 06:13 Absolute Lymphs (auto) 1.2 10^3/ul (1.0-4.8) 10/27/17 06:13 Absolute Monos (auto) 0.8 10^3/ul (0-0.8) 10/27/17 06:13 Absolute Eos (auto) 0.1 10^3/ul (0-0.6) 10/27/17 06:13 Absolute Basos (auto) 0 10^3/ul (0-0.2) 10/27/17 06:13 Absolute Nucleated RBC 0 10^3/ul 10/27/17 06:13 Nucleated RBC % 0.1 10/27/17 06:13 ESR 61 mm/Hr (0-40) H 10/23/17 19:01 INR (Anticoag Therapy) 1.05 (0.77-1.02) H 10/24/17 05:17 APTT 29.3 seconds (26.0-36.3) 10/24/17 05:17 Sodium 136 mmol/L (135-145) 10/27/17 06:13 Potassium 3.4 mmol/L (3.5-5.0) L 10/27/17 06:13 Chloride 101 mmol/L (101-111) 10/27/17 06:13 Carbon Dioxide 27 mmol/L (22-32) 10/27/17 06:13 Anion Gap 8 mmol/L (2-11) 10/27/17 06:13 BUN 12 mg/dL (6-24) 10/27/17 06:13 Creatinine 0.51 mg/dL (0.51-0.95) 10/27/17 06:13 Est GFR ( Amer) 138.7 (>60) 10/27/17 06:13 Est GFR (Non-Af Amer) 114.6 (>60) 10/27/17 06:13 BUN/Creatinine Ratio 23.5 (8-20) H 10/27/17 06:13 Glucose 93 mg/dL (70-100) 10/27/17 06:13 POC Glucose (mg/dL) 111 mg/dL (70-100) H 10/27/17 01:58 Lactic Acid 1.0 mmol/L (0.5-2.0) 10/27/17 02:14 Calcium 8.9 mg/dL (8.6-10.3) 10/27/17 06:13 Total Bilirubin 1.20 mg/dL (0.2-1.0) H 10/23/17 19:01 AST 14 U/L (13-39) 10/23/17 19:01 ALT 11 U/L (7-52) 10/23/17 19:01 Alkaline Phosphatase 46 U/L (34-104) 10/23/17 19:01 Troponin I 0.01 ng/mL (<0.04) 10/23/17 19:01 C-Reactive Protein 55.82 mg/L (<8.01) H 10/27/17 06:13 Total Protein 7.0 g/dL (6.4-8.9) 10/23/17 19:01 Albumin 4.0 g/dL (3.2-5.2) 10/23/17 19:01 Globulin 3.0 g/dL (2-4) 10/23/17 19:01 Albumin/Globulin Ratio 1.3 (1-3) 10/23/17 19:01 Urine Color Straw 10/23/17 21:36 Urine Appearance Clear 10/23/17 21:36 Urine pH 6.0 (5-9) 10/23/17 21:36 Ur Specific [place] 1.005 (1.010-1.030) L 10/23/17 21:36 Urine Protein Negative (Negative) 10/23/17 21:36 Urine Ketones Trace (Negative) A 10/23/17 21:36 Urine Blood 1+ (Negative) A 10/23/17 21:36 Urine Nitrate Negative (Negative) 10/23/17 21:36 Urine Bilirubin Negative (Negative) 10/23/17 21:36 Urine Urobilinogen Negative (Negative) 10/23/17 21:36 Ur Leukocyte Esterase Negative (Negative) 10/23/17 21:36 Urine WBC (Auto) Absent (Absent) 10/23/17 21:36 Urine RBC (Auto) Trace(0-2/hpf) (Absent) 10/23/17 21:36 Urine Bacteria Absent (Absent) 10/23/17 21:36 Urine Glucose Negative (Negative) 10/23/17 21:36 Vancomycin Trough 10.7 mcg/mL 10/27/17 06:13 Group A Strep Rapid Negative (Negative) 10/23/17 23:33
[2017-10-28] MEDS: Aspirin EC TAB* 81 MG TAB.EC PO SCH (08:55)
[2017-10-28] MEDS: amLODIPine TAB* 5 MG PO SCH (08:55)
--- NOTE | 2017-10-28 16:07 | PN ---
Subjective Date of Service: 10/28/17 Interval History: Patient seen and examined. Per records, patient was very confused yesterday after procedure and was given haldol and quite lethargic. Patient appears much improved today, She is OOB, eating lunch, conversant. States pain in left thumb that radiates up from the wrist, but whe has retained ROM. States pain is tolerable but very sore at the surgical site. Denies fevers or chills. No n/v, no SOb or chest pain. Family History: Unchanged from Admission Social History: Unchanged from Admission Past Medical History: Unchanged from Admission Objective Active Medications: Acetaminophen (Tylenol Tab*) 650 mg PO Q4H PRN PRN Reason: FEVER/PAIN Last Admin: 10/25/17 15:49 Dose: 650 mg Amlodipine Besylate (Norvasc Tab*) 10 mg PO DAILY [facility] Last Admin: 10/28/17 08:55 Dose: 10 mg Aspirin (Aspirin Ec Tab*) 81 mg PO DAILY [facility] Last Admin: 10/28/17 08:55 Dose: 81 mg Buspirone HCl (Buspar Tab *) 15 mg PO BEDTIME [facility] Last Admin: 10/27/17 21:40 Dose: 15 mg Docusate Sodium (Colace Cap*) 100 mg PO DAILY PRN PRN Reason: CONSTIPATION Last Admin: 10/26/17 09:14 Dose: 100 mg Heparin Sodium (Porcine) (Heparin Vial(*)) 5,000 units SUBCUT Q8HR [facility]IR[facility] Last Admin: 10/28/17 13:39 Dose: 5,000 units Heparin Sodium (Porcine) (Heparin Flush Picc/Ml/Cvc(*)) 1 - 3 ml FLUSH 0600, 1800 MIRIAM; Protocol Last Admin: 10/28/17 15:44 Dose: 1 ml Hydralazine HCl (Apresoline Iv*) 5 mg IV SLOW PU Q6H PRN PRN Reason: BLOOD PRESSURE Last Admin: 10/28/17 02:13 Dose: 5 mg Vancomycin HCl 1,000 mg/ (Sodium Chloride) 250 mls @ 166.667 mls/hr IVPB 0100, 1300 MIRIAM Last Admin: 10/28/17 13:34 Dose: 166.667 mls/hr Ondansetron HCl (Zofran Inj*) 4 mg IV Q6H PRN PRN Reason: NAUSEA Pharmacy Consult (Vancomycin Per Pharmacy*) 1 note FOLLOW UP .VANC PER PHARMACY [facility] Pharmacy Profile Note (Vancomycin Trough Check) 1 note FOLLOW UP ONCE ONE Stop: 10/29/17 12:31 Polyethylene Glycol/Electrolytes (Miralax*) 17 gm PO DAILY PRN PRN Reason: CONSTIPATION Last Admin: 10/26/17 12:49 Dose: 17 gm Vital Signs - 8 hr 10/28/17 10/28/17 10/28/17 11:44 12:14 13:30 Temperature 98.2 F 98.2 F Pulse Rate 103 103 98 Respiratory 18 18 Rate Blood Pressure 104/56 104/56 (mmHg) O2 Sat by Pulse 97 97 Oximetry Oxygen Devices in Use Now: None Appearance: Alert, pleasant, NAD Eyes: No Scleral Icterus, PERRLA Ears/Nose/Mouth/Throat: NL Teeth, Lips, Gums, Mucous Membranes Moist Neck: NL Appearance and Movements; NL JVP, Trachea Midline Respiratory: Symmetrical Chest Expansion and Respiratory Effort, Clear to Auscultation Cardiovascular: NL Sounds; No Murmurs; No JVD, RRR, No Edema Abdominal: NL Sounds; No Tenderness; No Distention Skin: - - left hand erythematous on the dorsal aspect with edema, dressing CDI Neurological: Alert and Oriented x 3, NL Sensation, NL Gait Nutrition: Taking PO's Result Diagrams: 10/27/17 06:13 10/27/17 06:13 Additional Lab and Data: Laboratory Results - last 24 hr 10/27/17 10/27/17 10/27/17 01:58 02:14 02:14 WBC RBC Hgb Hct MCV MCH MCHC RDW Plt Count MPV Neut % (Auto) Lymph % (Auto) [place] % (Auto) Eos % (Auto) Baso % (Auto) Absolute Neuts (auto) Absolute Lymphs (auto) Absolute Monos (auto) Absolute Eos (auto) Absolute Basos (auto) Absolute Nucleated RBC Nucleated RBC % Sodium 138 Potassium 3.4 L Chloride 101 Carbon Dioxide 26 Anion Gap 11 BUN 12 Creatinine 0.59 Est GFR ( Amer) 117.2 Est GFR (Non-Af Amer) 96.9 BUN/Creatinine Ratio 20.3 H Glucose 97 POC Glucose (mg/dL) 111 H Lactic Acid 1.0 Calcium 8.9 C-Reactive Protein Vancomycin Trough 10/27/17 10/27/17 10/27/17 02:14 06:13 06:13 WBC 7.4 RBC 4.23 Hgb 12.8 Hct 38 MCV 90 MCH 30 MCHC 34 RDW 14 Plt Count 217 MPV 9.1 Neut % (Auto) Lymph % (Auto) [place] % (Auto) Eos % (Auto) Baso % (Auto) Absolute Neuts (auto) Absolute Lymphs (auto) Absolute Monos (auto) Absolute Eos (auto) Absolute Basos (auto) Absolute Nucleated RBC Nucleated RBC % Sodium 136 Potassium 3.4 L Chloride 101 Carbon Dioxide 27 Anion Gap 8 BUN 12 Creatinine 0.51 Est GFR ( Amer) 138.7 Est GFR (Non-Af Amer) 114.6 BUN/Creatinine Ratio 23.5 H Glucose 93 POC Glucose (mg/dL) Lactic Acid Calcium 8.9 C-Reactive Protein 55.82 H Vancomycin Trough 10.7 10/27/17 06:13 WBC 6.2 RBC 4.14 Hgb 12.5 Hct 37 MCV 89 MCH 30 MCHC 34 RDW 14 Plt Count 210 MPV 9.2 Neut % (Auto) 66.7 Lymph % (Auto) 18.9 L [place] % (Auto) 12.3 H Eos % (Auto) 1.5 Baso % (Auto) 0.6 Absolute Neuts (auto) 4.1 Absolute Lymphs (auto) 1.2 Absolute Monos (auto) 0.8 Absolute Eos (auto) 0.1 Absolute Basos (auto) 0 Absolute Nucleated RBC 0 Nucleated RBC % 0.1 Sodium Potassium Chloride Carbon Dioxide Anion Gap BUN Creatinine Est GFR ( Amer) Est GFR (Non-Af Amer) BUN/Creatinine Ratio Glucose POC Glucose (mg/dL) Lactic Acid Calcium C-Reactive Protein Vancomycin Trough Microbiology and Other Data: Microbiology 10/23/17 21:09 Joint Fluid(Synovial) - Wrist Right Gram Stain - Final 10/23/17 21:09 Joint Fluid(Synovial) - Wrist Right Body Fluid Culture - Final No Growth Day 4 10/23/17 19:01 Blood Venous Aerobic Blood Culture - Preliminary No Growth Day 3 10/23/17 19:01 Blood Venous Anaerobic Blood Culture - Preliminary No Growth Day 3 10/23/17 19:06 Blood Venous Aerobic Blood Culture - Preliminary No Growth Day 3 10/23/17 19:06 Blood Venous Anaerobic Blood Culture - Preliminary No Growth Day 3 10/25/17 09:01 Wound - Other Anaerobic Culture - Preliminary No Growth Day 1 10/25/17 09:01 Wound - Other Gram Stain - Final 10/25/17 09:01 Wound - Other Wound Culture - Preliminary No Growth Day 1 10/25/17 09:01 Wound - Wrist Left Anaerobic Culture - Preliminary No Growth Day 1 10/25/17 09:01 Wound - Wrist Left Gram Stain - Final 10/25/17 09:01 Wound - Wrist Left Wound Culture - Preliminary No Growth Day 1 10/23/17 23:15 Throat Group A Streptococcus Rapid Screen - Final Specimen received for Rapid Strep A Molecular testing 10/23/17 21:09 Wrist Left Skin and Soft Tissue MRSA/MSSA (PCR - Final Mrsa Negative S.aureus Negative Diagnostic Imaging: Patient Name: NORBERTO PATRICIA Medical Record#: [id number] Ordering Physician: Kamran Cabello MD Acct.#: [id number] : 1930 Age: 87 Sex: F Location: EMERGENCY DEPARTMENT Exam Date: 10/23/171941 ADM Status: REG ER Order Information: WRIST LEFT 3+ VWS Accession Number: [id number] CPT: 12649 INDICATION: LEFT wrist pain, redness, and swelling. Clinical concern for potential septic joint. COMPARISON: No relevant prior exams available on the [facility] PACS for comparison. TECHNIQUE: AP, lateral, and oblique views LEFT wrist. REPORT: Extensive soft tissue swelling about the distal forearm, wrist, and visualized hand. No subcutaneous emphysema or conspicuous foreign body evident. Bone density appears decreased throughout. Negative for fracture or dislocation. Marked degenerative arthropathy at the basal joint of the thumb. Degenerative subchondral cysts at the distal radius. No periosteal reaction or osseous erosions evident. IMPRESSION: #. Soft tissue swelling concerning for presence of soft tissue infection given the clinical context. #. No radiographic evidence for osteomyelitis. <Electronically signed by Meir Cheek MD in OV> 10/23/171958 Dictated By: Meir Cheek MD Dictated Date/Time: 10/23/171958 Transcribed Date/Time: 10/23/171955 Patient Name: NORBERTO PATRICIA Medical Record#: [id number] Ordering Physician: Waylon HARLEY Acct.#: [id number] : 1930 Age: 87 Sex: F Location: SURGICAL STAY UNIT Exam Date: 10/24/17832 ADM Status: ADM IN Order Information: MRI WRIST LEFT W/O Accession Number: [id number] CPT: 27323 Indication: LEFT wrist and hand cellulitis. Concern for septic arthritis of the LEFT wrist and hand. IMPRESSION: #. The constellation of findings given the clinical context is consistent with superficial and deep soft tissue infection with septic arthritis at the wrist and septic tenosynovitis involving the superficialis and profundus flexor tendons. #. Polyarticular osteoarthritis. Associated subchondral cystic change and marrow edema most prominent at the distal radius. Presence of arthropathy and associated bony change limits sensitivity and specificity for diagnosis of early osteomyelitis. At this time bone marrow signal changes are most suggestive of spectrum of osteoarthritis. <Electronically signed by Meir Cheek MD in OV> 10/24/17 1352 Dictated By: Meir Cheek MD Dictated Date/Time: 10/24/17 1352 Transcribed Date/Time: 10/24/17 1340 Copy to: Assess/Plan/Problems-Billing Assessment: 87 y/o female PMH HTN, arthritis and psoriasis, p/w 2 days hx worsening Left hand/wrist swelling and redness, who was found to have septic joint now s/p tenosynovectomy with surgical debridement. Cultures negative (received vancomycin prior). Planned 4 weeks vancomycin in STR. - Patient Problems (1) Septic arthritis of wrist, left Code(s): M00.9 - PYOGENIC ARTHRITIS, UNSPECIFIED SNOMED Code(s): 780305661 Comment: - POD1 tenosynovectomy with debridement with Dr. Campbell. - Continue vancomycin as per ID x 4 weeks - PICC inserted - If clear by ortho in AM, will DC to [facility] (2) Arthritis Current Visit: Yes Status: Acute Code(s): M19.90 - UNSPECIFIED OSTEOARTHRITIS, UNSPECIFIED SITE SNOMED Code(s): 3865994 Comment: - Tylenol as needed for pain - Supportive care (3) Cellulitis of hand, left Current Visit: Yes Status: Acute Code(s): L03.114 - CELLULITIS OF LEFT UPPER LIMB SNOMED Code(s): 34105547 Comment: - Contine Vanco - Cultures NTD, however aspirate was tested after vanco was given (4) Encephalopathy Code(s): G93.40 - ENCEPHALOPATHY, UNSPECIFIED SNOMED Code(s): 91252703 Comment: - Most likely multi-factorial; post-operative delerium 2/2 surgery, infection and medications - No need for haldol since yesterday - Patient appears to be significantly improved (5) Hx of psoriasis Code(s): Z87.2 - PERSONAL HISTORY OF DISEASES OF THE SKIN, SUBCU SNOMED Code(s ): 913872051 Comment: - No flare, stable at this time (6) Hypertension Code(s): I10 - ESSENTIAL (PRIMARY) HYPERTENSION SNOMED Code(s): 81455829 Comment: - BP stable on Norvasc 10mg daily - Hydralazine prn (7) DVT prophylaxis Code(s): NMJ7804 - SNOMED Code(s): 376186618 Comment: - SubQ heparin (8) DNR (do not resuscitate) Current Visit: Yes Status: Acute Status and Disposition: Inpatient. Plan for transfer to [place] tomorrow if clear by orthopedics.
[2017-10-28] MEDS: busPIRone TAB* 15 MG PO SCH (20:08)
[2017-10-29] MEDS: Vancomycin(*) 1,000 MG in NS 0.9% 250 ML* 250 ML IVPB SCH ×2 (01:06→11:51)
[2017-10-29] MEDS: Heparin VIAL(*) 5000 UNITS/ML VIAL (FIVE THOUSAND) SUBCUT SCH ×2 (05:51→13:34)
[2017-10-29] MEDS: Aspirin EC TAB* 81 MG TAB.EC PO SCH (08:30)
[2017-10-29] MEDS: amLODIPine TAB* 5 MG PO SCH (08:31)
--- NOTE | 2017-10-29 11:29 | PN ---
Progress Note - Progress Note Date of Service: 10/29/17 SOAP: Subjective: []Patient seen at bedside. She is feeling well without feeling of fever, chills , CP, SOB. Objective: []General: Alert, well appearing, NAD, carrying on appropriate conversation LUE: Left hand edema is markedly decreased from POD 1, only mild edema remains. No erythema. Dressing changed, incisions are CDI without surrounding erythema and without discharge. Moves all digits well, sensation intact to light touch throughout LUE. Radial pulse 2+, capillary refill less than two seconds distally. Assessment: [] SP Left wrist joint arthrotomy with irrigation and debridement and tenosynovectomy with irrigation and debridement of left wrist flexor tendons left wrist septic arthritis and flexor tenosynovitis Plan: []NWB LUE, limit use of LUE Elevate wrist Daily dressing change DC planned for today Follow up with Dr Campbell 10 days post op, sooner with any concerns. Vital Signs Temp 98.8 F 10/29/17 07:54 Pulse 95 10/29/17 07:54 Resp 18 10/29/17 08:00 BP 121/63 10/29/17 07:54 Pulse Ox 95 10/29/17 08:00 Intake & Output 10/28/17 10/29/17 10/29/17 18:59 06:59 18:59 Intake Total 1170 903 650 Output Total 600 350 200 Balance 570 553 450 Intake: IV Fluids 250 ABX - VANCOMYCIN 250 IVPB 263 ABX - VANCOMYCIN 263 Oral 920 640 650 Output: Urine 600 350 200 Other: Estimated Void Large Medium Medium Estimated Stool Amount Small # Voids 1 1 Laboratory Last Values WBC 6.2 10^3/ul (3.5-10.8) 10/27/17 06:13 RBC 4.14 10^6/ul (4.00-5.40) 10/27/17 06:13 Hgb 12.5 g/dl (12.0-16.0) 10/27/17 06:13 Hct 37 % (35-47) 10/27/17 06:13 MCV 89 fL (80-97) 10/27/17 06:13 MCH 30 pg (27-31) 10/27/17 06:13 MCHC 34 g/dl (31-36) 10/27/17 06:13 RDW 14 % (10.5-15) 10/27/17 06:13 Plt Count 210 10^3/ul (150-450) 10/27/17 06:13 MPV 9.2 um3 (7.4-10.4) 10/27/17 06:13 Neut % (Auto) 66.7 % (38-83) 10/27/17 06:13 Lymph % (Auto) 18.9 % (25-47) L 10/27/17 06:13 [place] % (Auto) 12.3 % (0-7) H 10/27/17 06:13 Eos % (Auto) 1.5 % (0-6) 10/27/17 06:13 Baso % (Auto) 0.6 % (0-2) 10/27/17 06:13 Absolute Neuts (auto) 4.1 10^3/ul (1.5-7.7) 10/27/17 06:13 Absolute Lymphs (auto) 1.2 10^3/ul (1.0-4.8) 10/27/17 06:13 Absolute Monos (auto) 0.8 10^3/ul (0-0.8) 10/27/17 06:13 Absolute Eos (auto) 0.1 10^3/ul (0-0.6) 10/27/17 06:13 Absolute Basos (auto) 0 10^3/ul (0-0.2) 10/27/17 06:13 Absolute Nucleated RBC 0 10^3/ul 10/27/17 06:13 Nucleated RBC % 0.1 10/27/17 06:13 ESR 61 mm/Hr (0-40) H 10/23/17 19:01 INR (Anticoag Therapy) 1.05 (0.77-1.02) H 10/24/17 05:17 APTT 29.3 seconds (26.0-36.3) 10/24/17 05:17 Sodium 136 mmol/L (135-145) 10/27/17 06:13 Potassium 3.4 mmol/L (3.5-5.0) L 10/27/17 06:13 Chloride 101 mmol/L (101-111) 10/27/17 06:13 Carbon Dioxide 27 mmol/L (22-32) 10/27/17 06:13 Anion Gap 8 mmol/L (2-11) 10/27/17 06:13 BUN 12 mg/dL (6-24) 10/27/17 06:13 Creatinine 0.51 mg/dL (0.51-0.95) 10/27/17 06:13 Est GFR ( Amer) 138.7 (>60) 10/27/17 06:13 Est GFR (Non-Af Amer) 114.6 (>60) 10/27/17 06:13 BUN/Creatinine Ratio 23.5 (8-20) H 10/27/17 06:13 Glucose 93 mg/dL (70-100) 10/27/17 06:13 POC Glucose (mg/dL) 111 mg/dL (70-100) H 10/27/17 01:58 Lactic Acid 1.0 mmol/L (0.5-2.0) 10/27/17 02:14 Calcium 8.9 mg/dL (8.6-10.3) 10/27/17 06:13 Total Bilirubin 1.20 mg/dL (0.2-1.0) H 10/23/17 19:01 AST 14 U/L (13-39) 10/23/17 19:01 ALT 11 U/L (7-52) 10/23/17 19:01 Alkaline Phosphatase 46 U/L (34-104) 10/23/17 19:01 Troponin I 0.01 ng/mL (<0.04) 10/23/17 19:01 C-Reactive Protein 55.82 mg/L (<8.01) H 10/27/17 06:13 Total Protein 7.0 g/dL (6.4-8.9) 10/23/17 19:01 Albumin 4.0 g/dL (3.2-5.2) 10/23/17 19:01 Globulin 3.0 g/dL (2-4) 10/23/17 19:01 Albumin/Globulin Ratio 1.3 (1-3) 10/23/17 19:01 Urine Color Straw 10/23/17 21:36 Urine Appearance Clear 10/23/17 21:36 Urine pH 6.0 (5-9) 10/23/17 21:36 Ur Specific [place] 1.005 (1.010-1.030) L 10/23/17 21:36 Urine Protein Negative (Negative) 10/23/17 21:36 Urine Ketones Trace (Negative) A 10/23/17 21:36 Urine Blood 1+ (Negative) A 10/23/17 21:36 Urine Nitrate Negative (Negative) 10/23/17 21:36 Urine Bilirubin Negative (Negative) 10/23/17 21:36 Urine Urobilinogen Negative (Negative) 10/23/17 21:36 Ur Leukocyte Esterase Negative (Negative) 10/23/17 21:36 Urine WBC (Auto) Absent (Absent) 10/23/17 21:36 Urine RBC (Auto) Trace(0-2/hpf) (Absent) 10/23/17 21:36 Urine Bacteria Absent (Absent) 10/23/17 21:36 Urine Glucose Negative (Negative) 10/23/17 21:36 Vancomycin Trough 10.7 mcg/mL 10/27/17 06:13 Group A Strep Rapid Negative (Negative) 10/23/17 23:33
[2017-10-29 11:51] VITALS: BP 124/54
[2017-10-29] MEDS ORDERED: Potassium Chlor TAB* 20 MEQ TAB.ER PO ONE (12:17)
[2017-10-29] MEDS ORDERED: Vancomycin Trough Check NOTE FOLLOW UP ONE (12:30)
[2017-10-29 12:47] LABS: EGFR Non-African American 79.5 (>60)
[2017-10-29 13:18] LABS: Vancomycin Trough 14.8 mcg/mL
--- NOTE | 2017-10-29 13:51 | DS ---
CC: Dr. Yolis Kirby * DISCHARGE SUMMARY: DATE OF ADMISSION: 10/23/17 DATE OF DISCHARGE: 10/29/17 PRIMARY CARE PROVIDER: Dr. Yolis Kirby. ATTENDING FOR THIS ADMISSION: Dr. Eileen Joseph. MY ATTENDING FOR TODAY: Dr. Eileen Joseph.* (DICTATED BY RENETTA DIAMOND NP) HOSPITAL COURSE: This is a very pleasant 87-year-old female patient, who was brought into the emergency department on the evening of 10/23/17 with a complaint of left wrist pain, swelling, erythema, and fever. The patient reported subjective fevers and chills at home. She did have documented fever in the emergency department. She underwent imaging, which showed some additional edema on the wrist. 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 At this time, bone marrow signal changes are the more suggestive with spectrum of osteoarthritis. Given the patient's history of psoriatic arthritis, this was consistent more with arthritic changes rather than an osteomyelitis; however, she did in fact have a septic joint. She was initially consulted with Dr. Nguyen; however, it was Dr. Justin Campbell, who performed surgery on the patient on 10/25/17. She had an arthrotomy with tenosynovectomy and debridement and washout. She had an uneventful postoperative course. She did have a mild bit of postoperative delirium, which resolved very quickly. This was likely associated with anesthesia and narcotic pain medication. She was seen by Dr. Kilo Johnson on 10/27/17 for management of antibiotics. Of significant note, the patient did receive IV vanco in the emergency department before her aspiration, as such her cultures have been negative; however, surgical findings were consistent with septic arthritis, so it was determined that the patient should be treated empirically with vancomycin and cover her for any MRSA or staph infection. Dr. Johnson initially started her on 1000 mg of vancomycin 2 times a day; however, for discharge, she will have once daily dosing at 1750 mg in the morning. The patient was cleared by Orthopedics on the morning of 10/29/17. She was also cleared by Infectious Disease. She has been afebrile for 24 hours. Her blood cultures are negative. Because of the long-term antibiotic treatment, which will require 4 weeks, PICC line was inserted. She will have her infusions at [facility], which has accepted her for rehabilitation and infusion of antibiotics. Also, of significant note, the patient is instructed to be nonweightbearing on the affected side, which does impair her mobility and makes her appropriate for physical rehab in addition to her infusion therapy. The patient did have some issues with hypertension postoperatively. She was previously undiagnosed with essential hypertension; however, she remained hypertensive for several days post surgery. She was given hydralazine, she responded well and was placed on amlodipine 10 mg daily, which has held her blood pressure within normal range and she is tolerating well with no adverse reaction. REVIEW OF SYSTEMS: On the day of discharge, her review of systems is essentially negative. She states she is not having much pain on the affected side. Ice is helping. She is only taking Tylenol at this point. She denies any fever, fatigue, or chills. No shortness of breath, no chest pain. No nausea, no vomiting, no abdominal pain. No urinary complaints and no further constitutional complaints. PHYSICAL EXAMINATION: The patient is alert, can be sometimes confused, but is entirely appropriate and well appearing. Vital Signs: Today, blood pressure 124/54, heart rate 91, respiratory rate 18, O2 saturation 96% with a temperature of 98.0. HEENT: The patient is atraumatic and normocephalic. PERRLA with nonicteric sclerae. Oral mucosa is moist. Tongue is midline. Neck is supple, nontender. No thyromegaly noted. There are no carotid bruits auscultated. Cardiovascular: S1, S2 present. Rate and rhythm were regular. No murmurs, gallops, or rubs. Lungs are clear bilaterally to auscultation at the apices with no wheezing, rhonchi, or rales. Abdomen is soft, nontender, and nondistended. Positive bowel sounds in all 4 quadrants. She is passing flatus and having normal bowel movements. is deferred. Musculoskeletal: There is no clubbing, no cyanosis. She does have edema of the left hand primarily on the dorsal aspect with some associated erythema, which has improved from yesterday's exam. She has brisk cap refill in all digits. Full range of motion in her fingers. No palpable pain. Her dressing is clean, dry, and intact. Musculoskeletal exam is otherwise negative for any other acute findings. Neurologic: She is grossly intact with no new focalities. I think she may have a tendency to be forgetful sometimes; however, she does have a history of anxiety and her forgetfulness I think is more associated with anxiety rather than cognitive impairment. Psychiatric: She is cooperative and appropriate and very pleasant. LABORATORY DATA: WBCs 6.2, RBCs 4.12, hemoglobin 12.5, hematocrit 37, platelets 210. Sodium 136, potassium 3.4 for which she will receive 40 mEq of potassium prior to discharge, chloride 101, CO2 of 27, BUN 12, creatinine 0.51, GFR 114.6, glucose 93, lactic acid was 1.0, calcium 8.9. CRP initially was 71 at admission; on 10/27/17, 55.82, so it is trending down. Coags: INR is 1.05. Urinalysis shows no acute infective process. Last vanco trough was low at 10.7. Initial testing for group A rapid strep was negative. The patient did report some pharyngitis in the ER for which the rapid strep was performed in the emergency department, however, that was negative. DISCHARGE DIAGNOSES: 1. Septic arthritis of the left wrist, status post tenosynovectomy with debridement. 2. History of psoriatic arthritis, stable. 3. Cellulitis of the left hand as associated with her septic arthritis, stable and improving. 4. Encephalopathy, now resolved, primarily postoperative delirium. 5. New-onset hypertension, stable on Norvasc for the last 24 hours. MEDICATIONS FOR DISCHARGE: 1. Aspirin 81 mg daily. 2. Patanol drops, 1 drop both eyes daily. 3. Claritin 10 mg daily as needed. 4. Clobetasol 0.5% ointment topical 2 times a day. 5. BuSpar 15 mg at bedtime. 6. VESIcare 10 mg daily. 7. Amlodipine 10 mg daily. 8. MiraLAX 17 g daily as needed. 9. Heparin flush protocol 1 to 3 mL at 0600 and 1800 daily. 10. Docusate 100 mg daily as needed. 11. Tylenol 650 mg q.4 hours as needed. CODE STATUS: Please note, the patient is a DNR. ACTIVITY: The patient can do physical therapy as tolerated. Her only limitation is nonweightbearing on the left upper extremity. She can use her hand for small project asst exercises, but that should be limited until she follows up with Dr. Campbell. DIET: Should be regular as tolerated. DISCHARGE DISPOSITION: The patient will be discharged to [facility] at 1 o'clock this afternoon for antibiotic infusion and rehabilitative services. FOLLOWUP: She should follow up with Dr. Yolis Kirby, her primary care provider , 1 to 2 weeks after discharge from [facility]. She should follow up with Dr. Campbell in 10 days for wound check. Daily dressing changes as was noted in discharge summary should be daily with ice and any time dressing is soiled. The patient was discharged in stable condition. All questions were answered. Case Management has communicated with the patient's family and they are aware of her discharge plan. TIME SPENT: Please note, I have spent in excess of 30 minutes on this discharge interfacing with the patient, staff, and other providers involved in the patient's care. RENETTA DIAMOND NP [id number]/[facility] #: [id number] CLIVE
== END 2017-10-29 14:50 | DRG 500 ==
LOC: ED 18:11 → SSU 22:02
PROVIDERS: ADMIT Orthopaedic Surgery; ATTEND Internal Medicine
PROC: 0R9P0ZZ Drainage of Left Wrist Joint, Open Approach (ICD-10-PCS; 2017-10-25)
PROC: 0LB60ZZ Excision of Left Lower Arm and Wrist Tendon, Open Approach (ICD-10-PCS; principal; 2017-10-25 08:00)
PROC: 05HY33Z Insertion of Infusion Device into Upper Vein, Percutaneous Approach (ICD-10-PCS; 2017-10-27)
DX: M00.832 Arthritis due to other bacteria, left wrist (principal); G93.40 Encephalopathy, unspecified; L03.114 Cellulitis of left upper limb; F05 Delirium due to known physiological condition; L40.50 Arthropathic psoriasis, unspecified; I10 Essential (primary) hypertension; F41.9 Anxiety disorder, unspecified; M15.9 Polyosteoarthritis, unspecified; J02.9 Acute pharyngitis, unspecified; Z66 Do not resuscitate; N32.81 Overactive bladder; Z86.73 Personal history of transient ischemic attack (TIA), and cerebral infarction without residual deficits; Z79.82 Long term (current) use of aspirin; Z79.899 Other long term (current) drug therapy; Z88.2 Allergy status to sulfonamides; Z88.8 Allergy status to other drugs, medicaments and biological substances; Z91.048 Other nonmedicinal substance allergy status; Z82.5 Family history of asthma and other chronic lower respiratory diseases; Z87.891 Personal history of nicotine dependence
CPT/HCPCS: 36415; 71045; 80048; 80053; 80202; 81003; 81015; 82565; 83605; 84484; 84520; 85025; 85027; 85610; 85652; 85730; 86140; 87040; 87070; 87073; 87205; 87640; 87641; 87651; 93005; 99202; 99284; A9270-GY; C1751; G0463; G8978-GP-CI; G8978-GP-CJ; G8979-GP-CI; J0360; J0690; J0696; J1644; J2250; J3010; J3370

== ENCOUNTER 2017-11-08 11:23 | Emergency (ER) | payer MEDICARE ==
--- OUTSIDE RECORDS SUMMARY | 2017-11-08 11:38 | XMS REPORT ---
:1930 External Reference #:[id number] Author Organization [email or web address] Address [address] [place] [address] Phone [phone] Care Team Providers Name Role Phone Yolis Kirby MD Primary Care Physician Unavailable Payers Type Date Identification Numbers Payment Provider Subscriber Medicare Primary Effective: Policy Number: Medicare Karen Rider 1995 [id number] PayID: [id number] [address] [place] [address] [facility] Policy Number: [id number] [facility] Karen Rider PayID: [id number] [address] [place] [address] Problems Date Description Provider Status Onset: 11/23/2014 Skin sensation disturbance Ysabel Clarke M.D. Active Onset: 11/23/2014 Other Signs And Symptoms Involving Ysabel Clarke M.D. Active Cognition Onset: 01/19/2015 Carpal tunnel syndrome Ysabel Clarke M.D. Active Note: left, moderate to severe with electrophysiologic study 01/19/15 Onset: 01/19/2015 Lesion of ulnar nerve Ysabel Clarke M.D. Active Note: electrophysiologic study 01/19/15 Onset: 10/23/2017 Cellulitis of left upper limb Kai Quiros N.Chela Active Onset: 10/23/2017 Unspecified osteoarthritis, Kai Quiros N.Chela Active unspecified site Onset: 10/23/2017 Essential hypertension Kai Quiros N.P. 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 Camille Singh NP Active physiological condition Onset: 10/29/2017 Psoriasis with arthropathy Camille Singh NP Active Onset: 10/29/2017 Arthritis due to other bacteria, Camille Singh NP Active left wrist Social History Type Date Description Comments Lives With Alone ETOH Use Occasionally consumes alcohol 1 glass of wine a week Smoking Patient is a former smoker quit in the , smoked for approx 20 years up to 3 ppd at worst Allergies, Adverse Reactions, Alerts Date Description Reaction Status Severity Comments 11/23/2014 Tetracycline active 11/23/2014 Sulfa active flu like reaction Medications Medication Date Status Form Strength Qnty SIG Indications Ordering Provider Ceftriaxone 11/04/ Active Solution 1gm IV q day x Kilo Quinonez Sodium [facility] Aspir-81 00// Active Tablets DR 81mg 1 by mouth Unknown 0000 every day Zinc / Active Tablets 50mg one every Unknown 0000 day Vitamin C / Active Tablets ER 1000mg qd Unknown 0000 Vitamin B / Active Tablets 1 by mouth Unknown Complex "50" 0000 every day Clobetasol / Active Cream 0.05% apply to Unknown Propionate 0000 areas prn Cetaphil Daily / Active Lotion apply to Unknown Moisturizer 0000 skin prn Buspirone HCL 00/ Active Tablets 5mg 1 by mouth Unknown 0000 daily Oxybutynin 00/00/ Active Tablets 5mg 1 by mouth Unknown Chloride 0000 every day Turmeric / Active Capsules 500-3mg take one Unknown Curcumin 0000 capsule/ta Complex/Black blet daily Pepper Extract by mouth ( also has tart naqvi, olive leaf extract ) Tramadol 03/09/ Hx Tablets 37.5-325mg 30tab 1 -2 tabs Delphine Hydrochloride/A 2014 - s by mouth Medley, cetaminophen every 4-6 M.D. 2016 hours as needed pain Cephalexin 03/09/ Hx Capsules 500mg 40cap 1 tab po Delphine 2014 - four times Medley, a day M.D. 2016 Vesicare /00/ Hx Tablets 10mg 1 by mouth Unknown 0000 - every day 2016 Hydroxyzine HCL 00/ Hx Tablets 10mg qd Unknown 0000 - 2017 Prednisone 00/ Hx Tablets 10mg take as Unknown (Babatunde) 0000 - directed 2016 Triamcinolone / Hx Cream 0.1% apply thin Unknown Acetonide 0000 - film twice daily prn 2016 Vitamin E-400 /00/ Hx Capsules 400Unit 1 by mouth Unknown 0000 - every day 2016 Calcium Citrate / Hx Tablets 250mg 1 by mouth Unknown 0000 - once a day 2016 Vitamin D3 00/ Hx Capsules 150Iu 1 by mouth Unknown 0000 - every day 2014 Loratadine 00/ Hx Tablets 5mg 1 by mouth Unknown 0000 - every day prn 2017 Aspirin /00/ Hx Tablets 325mg 1 by mouth Unknown 0000 - every day prn 2016 Phyllis-Norfolk 00/00/ Hx Tablets 2-7.8-325m prn Unknown Plus Cold 0000 - Efferv g 2017 Phyllis-Norfolk 00/00/ Hx Tablets 7.8-6.25-1 prn Unknown Plus Night Cold 0000 - Efferv 0-500mg Formula 2017 Meclizine HCL 00/ Hx Tablets 25mg 1 tablet Unknown 0000 - daily as needed 2016 Inholtra 00/00/ Hx qd Unknown Premium 0000 - Lubri-Joint 2016 Furosemide /00/ Hx Tablets 40mg one by Unknown 0000 - mouth every day 2018 Otezla /00/ Hx Tablets 30mg 1 by mouth Unknown 0000 - twice a day 2018 Vancomycin HCL 00/00/ Hx Solution 1750mg iv every Unknown 0000 - Rec 24 hours x wks at 2018 [facility] Vital Signs Date Vital Result Comment 11/07/2017 Height 62 inches 5'2" Weight 138.00 lb Heart Rate 84 /min BP Systolic 98 mmHg BP Diastolic 56 mmHg Respiratory Rate 18 /min Body Temperature 99.0 F Pain Level 0 BMI (Body Mass Index) 25.2 kg/m2 05/30/2017 Height 62 inches 5'2" Weight 134.00 lb Heart Rate 76 /min BP Systolic Sitting 150 mmHg BP Diastolic Sitting 94 mmHg Respiratory Rate 16 /min BMI (Body Mass Index) 24.5 kg/m2 05/27/2016 Height 64 inches 5'4" Weight 122.50 lb Heart Rate 80 /min BP Systolic Sitting 130 mmHg BP Diastolic Sitting 88 mmHg Respiratory Rate 14 /min BMI (Body Mass Index) 21.0 kg/m2 04/24/2015 Height 64 inches 5'4" Weight 135.00 lb Pain Level 1 BMI (Body Mass Index) 23.2 kg/m2 04/03/2015 Height 64 inches 5'4" Weight 135.00 lb Body Temperature 97.5 F BMI (Body Mass Index) 23.2 kg/m2 03/09/2015 Height 64 inches 5'4" Weight 145.00 lb Heart Rate 643 /min Pain Level 3 BMI (Body Mass Index) 24.9 kg/m2 02/09/2015 Height 64 inches 5'4" Weight 145.00 lb Pain Level 3 BMI (Body Mass Index) 24.9 kg/m2 01/30/2015 Height 64 inches 5'4" Weight 145.00 lb Heart Rate 72 /min BP Systolic Sitting 136 mmHg BP Diastolic Sitting 90 mmHg Respiratory Rate 14 /min BMI (Body Mass Index) 24.9 kg/m2 01/19/2015 Height 64 inches 5'4" Weight 147.00 lb Heart Rate 84 /min BP Systolic Sitting 104 mmHg BP Diastolic Sitting 60 mmHg Respiratory Rate 16 /min BMI (Body Mass Index) 25.2 kg/m2 11/23/2014 Height 64 inches 5'4" Weight 151.00 lb Heart Rate 84 /min BP Systolic Sitting 144 mmHg BP Diastolic Sitting 88 mmHg Respiratory Rate 14 /min BMI (Body Mass Index) 25.9 kg/m2 Results Test Date Test Result H/L Range Note Vitamin B12 And Folate Serum 11/23/2014 Vitamin B12 603 pg/mL 180-914 1 Folic Acid (Folate) > 20.00 ng/mL >3.99 1 Normal Range 180 to 914 Indeterminate Range 145 to 180 Deficient Range <145 Procedures Date CPT Code Description Status 10/25/2017 40684 Radical Excision Arm/Wrist Flexors Completed 10/25/2017 90290 Radical Excision Arm/Wrist Flexors Completed 10/25/2017 07945 Arthrotomy Radio/Midcarpal JT W/Explore/Drain/Remove FB Completed 10/25/2017 72091 Arthrotomy Radio/Midcarpal JT W/Explore/Drain/Remove FB Completed 10/23/2017 51194 Inject/Drain Joint/Bursa Intermediate W/O US Completed 04/18/2015 34177 ECHO Transthoracic, Real-Time 2D With Doppler And Color Completed Flow 03/21/2015 47458 Carpal Tunnel Release Completed 03/21/2015 50013 Carpal Tunnel Release Completed 01/19/2015 10702 Nerve Conduction 05-06 Studies Completed 01/19/2015 68620 Needle Electromyography Complete, Five Or More Muscles Completed Studied Encounters Type Date Location Provider CPT E/M Dx [facility] 18208 M00.832 10:52a [facility] ALISSON Singh L40.50 G93.40 F05 I10 L03.114 Office Visit 10/28/2017 [facility] 88917 M00.9 Hospitalists ALISSON Singh L03.114 I10 G93.40 Office Visit 10/27/2017 10:50a [facility], [place] [address] G93.40 Hospitalists M19.90 L03.114 I10 Office Visit 10/27/2017 1:06p [facility] Tavo Quinonez 28804 M00.832 Infectious Diseases Christiano Ha M65.132 Office Visit 10/26/2017 [facility] [address] M00.9 Hospitalists I10 L03.114 D69.6 Office Visit 10/25/2017 [facility] [address] M00.9 Hospitalists L03.114 I10 D69.6 N32.81 M19.90 Office Visit 10/24/2017 10:49a [facility] [place], 40359 L03.114 Assoc, Hospitalists [place] I10 N32.81 M15.9 Office Visit 10/24/2017 9:05a [facility] [place] [address] M25.432 [facility] Office Visit 10/23/2017 10:47a [facility] Kai [place], [address] L03.114 Assoc, Hospitalists N.P. M19.90 I10 N32.81 Office Visit 05/30/2017 2:00p [facility] Ysabel Clarke M.D. 50678 H53.2 Services Of [employer] Equipment [employer] F41.9 Office Visit 05/27/2016 10:00a [facility] Ysabel Clarke M.D. 27961 R41.89 Services Of [facility] G47.00 Office Visit 03/09/2015 2:40p [facility] Delphine Medley 75466 G56.02 Of Carmen Alvarado Office Visit 02/09/2015 10:30a [facility] Delphine Medley 60330 G56.02 Of Carmen Alvarado G56.22 Office Visit 01/30/2015 3:00p [facility] Ysabel Clarke M.D. 68844 R41.89 [facility] [employer] Office Visit 11/23/2014 9:30a [facility] Ysabel Clarke M.D. 27057 782.0 Services Of [employer] Equipment Operator 799.59 Plan of Care Future Appointment(s):12/05/2017 11:15 am - Justin Campbell MD at [facility]11/07/2017 - Justin Campbell, MDM65.132 Other infective (teno) synovitis, left eyuxaP98.832 Arthritis due to other bacteria, left wristFollow up:Follow up: 4 weeks
[2017-11-08] MEDS ORDERED: NS 0.9% 1000 ML*IV.FLUID IV ONE (11:48)
[2017-11-08 12:20] LABS: ABS Basophils 0 10^3/ul (0-0.2); ABS Eosinophils 0.1 10^3/ul (0-0.6); ABS Lymphocytes 0.9 10^3/ul (1.0-4.8); ABS Monocytes 0.3 10^3/ul (0-0.8); ABS Neutrophils 4.4 10^3/ul (1.5-7.7); ABS Nucleated RBC 0 10^3/ul; Eosinophil % 1.7 % (0-6); Hematocrit 38 % (35-47); Hemoglobin 12.6 g/dl (12.0-16.0); Lymphocyte % 15.3 % (25-47); Mean Corpuscular HGB Conc 34 g/dl (31-36); Mean Corpuscular Hemoglobin 29 pg (27-31); Mean Corpuscular Volume 87 fL (80-97); Mean Platelet Volume 9.8 um3 (7.4-10.4); Nucleated Red Blood Cells % 0; Platelet Count 116 10^3/ul (150-450); Red Cell Distribution Width 14 % (10.5-15); White Blood Count 5.7 10^3/ul (3.5-10.8)
--- NOTE | 2017-11-08 12:21 | RAD ---
Indication: Fever, sepsis. Single frontal view of the chest performed at 1200 hours was reviewed. Comparison is made with previous exam dated October 23, 2017. No mediastinal shift is noted. Heart is of normal size and configuration. Lung mendoza appear clear. IMPRESSION: NO ACTIVE CARDIOPULMONARY DISEASE IS NOTED.
[2017-11-08 12:28] LABS: INR 1.04 (0.77-1.02)
[2017-11-08 12:39] LABS: EGFR Non-African American 50.4 (>60)
[2017-11-08 15:28] VITALS: BP 109/57
--- NOTE | 2017-11-08 16:14 | ED ---
HPI Febrile Illness - HPI Summary HPI Summary: Patient is an 87-year-old with a recent history of left wrist surgery secondary to cellulitis without osteomyelitis [facility] with temperatures as high as 101. Patient has been staying at the [facility]it[facility]iary for rehabilitation and receiving PICC line antibiotics for her wrist. She states she feels otherwise well, denies any SOB, chest pain, abdominal pain. MCC states she has increased confusion, has been lashing out and has been running fevers despite antibiotics. On arrival, patient states she would like to go back to the penit[facility]iary, she feels well and has been consistently running between 99 and 101 fevers for several months despite several workups with no findings. She denies any sweats or chills. She also has a C/O not understanding what medications she is receiving at the penitentiary as they're refusing to tell her. She was recently changed from her vancomycin to another medication, however herself and family does not recall the name of the medication she was recently changed to. She has seen Dr. Ha. Family is at bedside. - History of Current Complaint Chief Complaint: EDGeneral Time Seen by Provider: 11/08/17 11:26 Hx Obtained From: Patient Hx Last Menstrual Period: na Onset/Duration: Started Weeks Ago Timing: Intermittent Initial Severity: Mild Current Severity: Mild Pain Intensity: 0 Pain Scale Used: 0-10 Numeric Aggravating Factors: Nothing Alleviating Factors: Nothing Associated Signs and Symptoms: Altered Mental Status - Risk Factors Pseudomonas Risk Factors: Repeated Antibiotics Past 3 months Serious Bacterial Infection Risk Factors: Negative - Additional Pertinent History Primary Care Physician: GENNARO - Allergy/Home Medications Allergies/Adverse Reactions: Allergies Allergy/AdvReac Type Severity Reaction Status Date / Time Sulfa (Sulfonamide Allergy Intermediate Rash Verified 11/08/17 11:27 Antibiotics) tetracycline Allergy Intermediate Rash Verified 11/08/17 11:27 Perfume Allergy Rash Verified 11/08/17 11:27 seasonal allergies Allergy Runny Nose Uncoded 10/23/17 18:21 Home Medications: Home Medications Magnesium Hydroxide LIQ* [Milk of Magnesia LIQ*] 30 ml PO Q72H PRN 11/08/17 [ History Confirmed 11/08/17] Multivitamin [Multiple Vitamins] 1 tab PO DAILY 11/08/17 [History Confirmed 07/23] cefTRIAXone(*) [Rocephin(*)] 1 gm IV Q24H 11/08/17 [History Confirmed 11/08/17] PMH/Surg Hx/FS Hx/Imm Hx Previously Healthy: Yes Endocrine/Hematology History: Denies: Hx Diabetes, Hx Systemic Lupus Erythematosus, Hx Thyroid Disease Cardiovascular History: Denies: Hx Congestive Heart Failure, Hx Hypertension, Hx Pacemaker/ICD Respiratory History: Denies: Hx Asthma, Hx Chronic Obstructive Pulmonary Disease (COPD) GI History: Denies: Hx Ulcer History: Reports: Other Problems/Disorders - INCONTINENCE d/t Overactive bladder Denies: Hx Dialysis, Hx Renal Disease Musculoskeletal History: Reports: Hx Arthritis Denies: Hx Rheumatoid Arthritis Sensory History: Reports: Hx Cataracts, Hx Contacts or Glasses - READING GLASSES Denies: Hx Hearing Aid Opthamlomology History: Reports: Hx Cataracts, Hx Contacts or Glasses - READING GLASSES Neurological History: Reports: Other Neuro Impairments/Disorders - HX OF VERTIGO Psychiatric History: Reports: Hx Anxiety Denies: Hx Panic Disorder - Cancer History Hx Chemotherapy: No - Surgical History Surgery Procedure, Year, and Place: [facility] [facility] [facility] [place] [facility] septoplasty. [place] [facility] [place] Anesthesia Reactions: No - Immunization History Hx Pertussis Vaccination: No Immunizations Up to Date: No Infectious Disease History: No Infectious Disease History: Denies: Hx Hepatitis, Hx Human Immunodeficiency Virus (HIV), Traveled Outside the [place] in Last 30 Days - Family History Known Family History: Negative: Diabetes - Social History Occupation: Unemployed Lives: [facility] Alcohol Use: Occasionally Hx Substance Use: No Substance Use Type: Reports: None Hx Tobacco Use: Yes Smoking Status (MU): Former Smoker Length of Time of Smoking/Using Tobacco: 20 YRS Have You Smoked in the Last Year: No Review of Systems Positive: Fever. Negative: Chills, Fatigue, Skin Diaphoresis Negative: Palpitations, Chest Pain Negative: Shortness Of Breath, Cough Negative: Abdominal Pain, Vomiting, Diarrhea, Nausea Genitourinary: Negative Positive: no symptoms reported, see HPI Negative: Arthralgia, Myalgia Skin: Negative All Other Systems Reviewed And Are Negative: Yes Physical Exam Triage Information Reviewed: Yes Vital Signs On Initial Exam: Initial Vitals Pulse Resp BP Pulse Ox 89 25 109/64 98 11/08/17 11:22 11/08/17 11:22 11/08/17 11:22 11/08/17 11:22 Vital Signs Reviewed: Yes Appearance: Positive: Well-Appearing Skin: Positive: Dry, Other - Dry mucous membranes Head/Face: Positive: Normal Head/Face Inspection Eyes: Positive: EOMI, MEL, Conjunctiva Clear Neck: Positive: Nontender Respiratory/Lung Sounds: Positive: Clear to Auscultation, Breath Sounds Present Cardiovascular: Positive: RRR, Pulses are Symmetrical in both Upper and Lower Extremities Musculoskeletal: Positive: Normal, Strength/ROM Intact - No pain on palpation or ROM of the left wrist Neurological: Positive: Sensory/Motor Intact, Alert, Oriented to Person Place, Time Psychiatric: Positive: Normal, Affect/Mood Appropriate AVPU Assessment: Alert Diagnostics - Vital Signs Vital Signs Temp Pulse Resp BP Pulse Ox 11/08/17 15:37 98.8 F 93 20 109/57 98 11/08/17 15:00 19 11/08/17 14:17 93 14 109/57 96 11/08/17 14:00 90 16 92 11/08/17 13:00 78 17 11/08/17 12:21 72 19 135/68 95 11/08/17 12:00 80 17 97 11/08/17 11:51 78 16 109/68 95 11/08/17 11:31 87 21 99 11/08/17 11:24 100.6 F 81 20 109/64 98 11/08/17 11:22 89 25 109/64 98 - Laboratory Lab Results: Lab Results 11/08/17 11/08/17 11/08/17 Range/Units 12:13 12:13 12:13 WBC 5.7 (3.5-10.8) 10^3/ul RBC 4.30 (4.00-5.40) 10^6/ul Hgb 12.6 (12.0-16.0) g/dl Hct 38 (35-47) % MCV 87 (80-97) fL MCH 29 (27-31) pg MCHC 34 (31-36) g/dl RDW 14 (10.5-15) % Plt Count 116 L (150-450) 10^3/ul MPV 9.8 (7.4-10.4) um3 Neut % (Auto) 76.8 (38-83) % Lymph % (Auto) 15.3 L (25-47) % [place] % (Auto) 5.9 (0-7) % Eos % (Auto) 1.7 (0-6) % Baso % (Auto) 0.3 (0-2) % Absolute Neuts (auto) 4.4 (1.5-7.7) 10^3/ul Absolute Lymphs (auto) 0.9 L (1.0-4.8) 10^3/ul Absolute Monos (auto) 0.3 (0-0.8) 10^3/ul Absolute Eos (auto) 0.1 (0-0.6) 10^3/ul Absolute Basos (auto) 0 (0-0.2) 10^3/ul Absolute Nucleated RBC 0 10^3/ul Nucleated RBC % 0 INR (Anticoag Therapy) 1.04 H (0.77-1.02) APTT 28.3 (26.0-36.3) seconds Sodium 126 L (135-145) mmol/L Potassium 4.1 (3.5-5.0) mmol/L Chloride 95 L (101-111) mmol/L Carbon Dioxide 22 (22-32) mmol/L Anion Gap 9 (2-11) mmol/L BUN 30 H (6-24) mg/dL Creatinine 1.04 H (0.51-0.95) mg/dL Est GFR ( Amer) 60.9 (>60) Est GFR (Non-Af Amer) 50.4 (>60) BUN/Creatinine Ratio 28.8 H (8-20) Glucose 110 H (70-100) mg/dL Lactic Acid (0.5-2.0) mmol/L Calcium 7.9 L (8.6-10.3) mg/dL Total Bilirubin 0.40 (0.2-1.0) mg/dL AST 20 (13-39) U/L ALT 17 (7-52) U/L Alkaline Phosphatase 31 L (34-104) U/L Troponin I 0.01 (<0.04) ng/mL C-Reactive Protein 28.69 H (<8.01) mg/L Total Protein 5.6 L (6.4-8.9) g/dL Albumin 2.7 L (3.2-5.2) g/dL Globulin 2.9 (2-4) g/dL Albumin/Globulin Ratio 0.9 L (1-3) 11/08/17 Range/Units 12:13 WBC (3.5-10.8) 10^3/ul RBC (4.00-5.40) 10^6/ul Hgb (12.0-16.0) g/dl Hct (35-47) % MCV (80-97) fL MCH (27-31) pg MCHC (31-36) g/dl RDW (10.5-15) % Plt Count (150-450) 10^3/ul MPV (7.4-10.4) um3 Neut % (Auto) (38-83) % Lymph % (Auto) (25-47) % [place] % (Auto) (0-7) % Eos % (Auto) (0-6) % Baso % (Auto) (0-2) % Absolute Neuts (auto) (1.5-7.7) 10^3/ul Absolute Lymphs (auto) (1.0-4.8) 10^3/ul Absolute Monos (auto) (0-0.8) 10^3/ul Absolute Eos (auto) (0-0.6) 10^3/ul Absolute Basos (auto) (0-0.2) 10^3/ul Absolute Nucleated RBC 10^3/ul Nucleated RBC % INR (Anticoag Therapy) (0.77-1.02) APTT (26.0-36.3) seconds Sodium (135-145) mmol/L Potassium (3.5-5.0) mmol/L Chloride (101-111) mmol/L Carbon Dioxide (22-32) mmol/L Anion Gap (2-11) mmol/L BUN (6-24) mg/dL Creatinine (0.51-0.95) mg/dL Est GFR ( Amer) (>60) Est GFR (Non-Af Amer) (>60) BUN/Creatinine Ratio (8-20) Glucose (70-100) mg/dL Lactic Acid 1.3 (0.5-2.0) mmol/L Calcium (8.6-10.3) mg/dL Total Bilirubin (0.2-1.0) mg/dL AST (13-39) U/L ALT (7-52) U/L Alkaline Phosphatase (34-104) U/L Troponin I (<0.04) ng/mL C-Reactive Protein (<8.01) mg/L Total Protein (6.4-8.9) g/dL Albumin (3.2-5.2) g/dL Globulin (2-4) g/dL Albumin/Globulin Ratio (1-3) Result Diagrams: 11/08/17 12:13 11/08/17 12:13 Lab Statement: Any lab studies that have been ordered have been reviewed, and results considered in the medical decision making process. Course/Dx - Course Course Of Treatment: During the course of treatment, labs and chest x-ray obtained. Chest x-ray shows no acute cardiopulmonary disease and read by myself , RITA Gongora. Labs are fairly unremarkable except for an acute hyponatremia at 126. She states she has been feeling dehydrated. Discussed at length with patient and family the results of her tests. She is given 2L fluids , however she remains normotensive, without fever here in the ED, and respirations hovering around 18-20. On physical examination, patient has dry mucous membranes with postsurgical changes. No evidence of infection and no drainage from the area. She has no pain on palpation around the wrist or hand. Pulses +2 intact bilaterally. Lungs CTA. RRR. [facility] again to assess her fevers and was discharged home. She continues to state she feels well despite her fevers over the past few weeks. I have discussed at length with the patient and the family our treatment options and have offered admission, however due to the patient are ready provided antibiotics, improving from previous labs during her stay in feeling otherwise well, I do not feel it is imperative she needs a hospital admission at this time. Patient family agree. She will take Tylenol at the penit[facility]iary for any temperatures above 100.0 and I've given her strict return precautions. Family endorses patient is her baseline and is not more confused. - Febrile Illness Differential Diagnoses: Cellulitis, Fever of Unknown Origin, Pneumonia, Viremia - Diagnoses Provider Diagnoses: Fever Discharge - Sign-Out/Discharge Documenting (check all that apply): Patient Departure - Discharge Plan Condition: Stable Disposition: HOME Referrals: Yolis Kirby MD [Primary Care Provider] - Additional Instructions: Drink plenty of water For temps above 100 - Tylenol 650mg Please continue your antibiotics Give list of medications to patient please Eat plenty of salty foods Drink plenty of water - Billing Disposition and Condition Condition: STABLE Disposition: Home
--- NOTE | 2017-11-09 10:04 | PN ---
Progress Note - Progress Note Date of Service: 11/08/17 Note: Blood culture results phoned in from lab at 9:30 AM on 11/09/17 Gram-positive cocci cultures with negative MRSA and negative staph aureus Called [facility] to identify current antibiotic Antibiotic through PICC line is ceftriaxone Cephalosporins will cover gram-positive cocci in nothing further is needed
== END 2017-11-08 15:25 | disposition home or self-care (01) ==
LOC: ED 11:23
DX: R50.9 Fever, unspecified (principal); R41.82 Altered mental status, unspecified; Z87.891 Personal history of nicotine dependence
CPT/HCPCS: 36415; 71045; 80053; 83605; 84484; 85025; 85610; 85730; 86140; 87040; 87077; 87150; 87205; 96360; 99283

== ENCOUNTER 2018-11-09 13:10 | Emergency (ER) | payer MEDICARE ==
[2018-11-09 14:06] VITALS: BP 164/96
--- NOTE | 2018-11-09 15:29 | UC ---
Skin Complaint HPI - HPI Summary HPI Summary: 88-year-old female presents with a superficial skin tear to her right forearm that occurred 4 days ago. States she accidentally cut her arm on the edge of a chair. She has been doing dressing changes at home but the wound does not seem to be healing well and she notes that it bleeds quite a bit every time she takes the dressing off. Denies any fever, chills, erythema, edema, pain, or purulent drainage. - History of Current Complaint Chief Complaint: UCLaceration Time Seen by Provider: 11/09/18 15:03 Stated Complaint: WRIST LAC Hx Last Menstrual Period: na Pain Intensity: 0 - Allergy/Home Medications Allergies/Adverse Reactions: Allergies Allergy/AdvReac Type Severity Reaction Status Date / Time Sulfa (Sulfonamide Allergy Intermediate Rash Verified 11/09/18 14:06 Antibiotics) tetracycline Allergy Intermediate Rash Verified 11/09/18 14:06 Perfume Allergy Rash Verified 11/09/18 14:06 seasonal allergies Allergy Runny Nose Uncoded 11/09/18 14:06 PMH/Surg Hx/FS Hx/Imm Hx - Additional Past Medical History Additional PMH: Psoriasis, arthritis, overactive bladder Cardiovascular History: Hypertension - Surgical History Surgical History: Yes Surgery Procedure, Year, and Place: right ctr [facility]. [place] [facility] [place] [facility]. septoplasty. [place]rosc[place] [facility] [place] - Family History Known Family History: Positive: Non-Contributory - Social History Occupation: Retired Lives: Alone Alcohol Use: Occasionally Substance Use Type: None Smoking Status (MU): Former Smoker Length of Time of Smoking/Using Tobacco: 20 YRS Have You Smoked in the Last Year: No When Did the Patient Quit Smoking/Using Tobacco: - Immunization History Most Recent Influenza Vaccination: UTD Most Recent Tetanus Shot: unknown Most Recent Pneumonia Vaccination: Received Review of Systems All Other Systems Reviewed And Are Negative: Yes Constitutional: Negative: Fever, Chills Skin: Positive: Other - See HPI Respiratory: Positive: Negative Cardiovascular: Positive: Negative Gastrointestinal: Positive: Negative Genitourinary: Positive: Negative Musculoskeletal: Positive: Negative Neurological: Positive: Negative Is Patient Immunocompromised?: No Physical Exam - Summary Physical Exam Summary: GENERAL APPEARANCE: Alert and cooperative older adult female who appears to be in no acute distress. CARDIAC: Normal S1 and S2. No S3, S4 or murmurs. Rhythm is regular. There is no peripheral edema, cyanosis or pallor. Extremities are warm and well perfused. Capillary refill is less than 2 seconds. Peripheral pulses intact. LUNGS: Clear to auscultation without rales, rhonchi, wheezing or diminished breath sounds. ABDOMEN: Positive bowel sounds. Soft, nondistended, nontender. No guarding or rebound. No masses or hepatosplenomegally. MUSKULOSKELETAL: ROM intact to all extremities. No joint erythema or tenderness. Normal muscular development. Normal gait. SKIN: Superficial linear skin tear to the distal radial right forearm approximately 5 cm in length. No erythema, edema, or drainage noted. Triage Information Reviewed: Yes Vital Signs: Initial Vital Signs Temp 97.0 F 11/09/18 14:00 Pulse 86 11/09/18 14:00 Resp 16 11/09/18 14:00 BP 164/96 11/09/18 14:00 Pulse Ox 98 11/09/18 14:00 Vital Signs Reviewed: Yes Course/Dx - Course Course Of Treatment: 88-year-old female presents with a superficial skin tear to her right forearm that occurred 4 days ago. States she accidentally cut her arm on the edge of a chair. She has been doing dressing changes at home but the wound does not seem to be healing well and she notes that it bleeds quite a bit every time she takes the dressing off. Denies any fever, chills, erythema, edema, pain, or purulent drainage. Afebrile. Hypertensive otherwise VSS. Patient had a superficial linear skin tear to the distal radial right forearm approximately 5 cm in length. No erythema, edema, or drainage noted. A new dressing was applied using Xeroform gauze with Telfa and roller gauze to help prevent the gauze from sticking to the wound and reopening it. I demonstrated the dressing change process to the patient and provided her with dressing supplies. She is to follow-up with her primary care provider in a week for recheck the wound. Anticipatory guidance and warning symptoms were reviewed with the patient. Verbalizes understanding and agrees with plan of care. - Differential Diagnoses - Skin Complaint Differential Diagnoses: Other - Laceration, skin tear, wound infection - Diagnoses Provider Diagnosis: Skin tear of right forearm without complication Discharge - Sign-Out/Discharge Documenting (check all that apply): Patient Departure All imaging exams completed and their final reports reviewed: No Studies - Discharge Plan Condition: Critical Disposition: HOME Patient Education Materials: Skin Tear (ED) Referrals: Yolis Kirby MD [Primary Care Provider] - 7 Days () Additional Instructions: You have a superficial skin tear on your forearm that appears to be healing well. Keep the wound clean using a mild soap and water and cover with a dressing. He will want to change the dressing at least once daily. To do the dressin. Apply a strip of the Xeroform gauze (yellow antibiotic gauze) over the wound to help prevent the dressing from sticking to the wound. X 2. Cover with a nonstick Telfa gauze and wrapped with some roller gauze to secure the dressing. Apply tape to the roller gauze instead of your skin. Follow-up with your primary care provider in 7 days for recheck of the wound. Seek immediate medical attention if you develop a fever greater than 100.5 F, you have redness around the wound that spreads, swelling of the arm, pus draining from the wound, or any worsening of symptoms. - Billing Disposition and Condition Condition: CRITICAL Disposition: Home
== END 2018-11-09 15:38 | disposition home or self-care (01) ==
LOC: UCEAST 13:10
DX: S51.811A Laceration without foreign body of right forearm, initial encounter (principal); W22.03XA Walked into furniture, initial encounter; Y92.019 Unspecified place in single-family (private) house as the place of occurrence of the external cause; I10 Essential (primary) hypertension; Z88.2 Allergy status to sulfonamides; Z87.891 Personal history of nicotine dependence
CPT/HCPCS: 99211; G0463